=== PATIENT | female | born 1950 | race Caucasian/White ===

== ENCOUNTER → 2019-04-26 10:12 | Outpatient (BNVA) | payer MEDICARE, MEDICAID, SELFPAY | PROVIDERS: Family Provider Internal Medicine; PCP Internal Medicine; Visit Provider Anesthesiology | DX: G89.29 Other chronic pain (principal); M51.26 Other intervertebral disc displacement, lumbar region; M51.36 Other intervertebral disc degeneration, lumbar region; M54.16 Radiculopathy, lumbar region; M47.9 Spondylosis, unspecified; M54.2 Cervicalgia; M19.91 Primary osteoarthritis, unspecified site; F17.210 Nicotine dependence, cigarettes, uncomplicated; Z79.891 Long term (current) use of opiate analgesic | CPT/HCPCS: 99214 ==

== ENCOUNTER → 2019-05-14 13:35 | Outpatient (BNVA) | payer MEDICARE, MEDICAID, SELFPAY | PROVIDERS: Family Provider Internal Medicine; PCP Internal Medicine; Referring Provider Nurse Practitioner Family; Visit Provider Otolaryngology | DX: H60.393 Other infective otitis externa, bilateral (principal); H92.03 Otalgia, bilateral; F17.210 Nicotine dependence, cigarettes, uncomplicated | CPT/HCPCS: 99213; 99214 ==

== ENCOUNTER 2019-05-22 11:36 | Outpatient (CLI) | payer MEDICARE, MEDICAID, SELFPAY ==
--- NOTE | 2019-05-22 11:45 | MR_ITS ---
WS: [id number] MRI HEAD WITH CONTRAST TECHNIQUE: Sagittal T1, T2 axial, T2 axial FLAIR, axial susceptibility weighted imaging, axial diffus ion weighted images, and coronal T2 images were obtained. Pre and post-T1 axial and post T1 coronal i mages. ADC and FSPGR images. CLINICAL INFORMATION: CAD;SPEECH DISTURBANCE;TREMOR;AAA;HYPERTYROIDISM;DIABETES ME COMPARISON: None. FINDINGS: No evidence of restricted diffusion to suggest acute ischemia. Mild small vessel changes. Mild parenc hymal volume loss. Normal posterior fossa. Normal vascular flow voids at the skull base. No extra-axi al fluid collections. No evidence of mass or mass effect. Paranasal sinuses are well aerated. Mild mu cosal thickening in the mastoid air cells. Mild symmetric atrophy involving the temporal lobes and hi ppocampal formations. No hemosiderin on the susceptibility weighted images. Incidental venous angioma left lang radiata. Normal visualized dural venous sinuses. Normal optic chiasm and pituitary infundibulum. Normal sella. Normal cavernous sinuses. MR/MR head wo/w con [id number] IMPRESSION: 1. No evidence of restricted diffusion to suggest acute ischemia. 2. Mild small vessel changes moderate parenchymal volume loss. 3. No hemosiderin on the susceptibility weighted images. 4. Incidental venous angioma left lang radiata. 5. Otherwise no abnormal intracranial enhancement.
[2019-05-22 12:54] LABS: Blood Urea Nitrogen 13 mg/dL (8-23)
== END 2019-05-22 11:37 | disposition home or self-care (01) ==
LOC: RADSHAW 11:41
PROVIDERS: Family Provider Internal Medicine; PCP Nurse Practitioner Family; Visit Provider Nurse Practitioner Family
DX: R47.9 Unspecified speech disturbances (principal); I25.10 Atherosclerotic heart disease of native coronary artery without angina pectoris; I71.4 Abdominal aortic aneurysm, without rupture; E05.90 Thyrotoxicosis, unspecified without thyrotoxic crisis or storm; E11.9 Type 2 diabetes mellitus without complications; Q28.3 Other malformations of cerebral vessels
CPT/HCPCS: 70553; 82565; 84520; A9579

== ENCOUNTER → 2019-05-29 14:32 | Outpatient (BNVA) | payer MEDICARE, MEDICAID, SELFPAY | PROVIDERS: Family Provider Internal Medicine; PCP Nurse Practitioner Family; Visit Provider Otolaryngology | DX: H92.03 Otalgia, bilateral (principal); R25.1 Tremor, unspecified; J38.3 Other diseases of vocal cords; F17.210 Nicotine dependence, cigarettes, uncomplicated | CPT/HCPCS: 99213; 99214 ==

== ENCOUNTER → 2019-05-30 09:21 | Outpatient (BNVA) | payer MEDICARE, MEDICAID, SELFPAY | PROVIDERS: Family Provider Internal Medicine; PCP Nurse Practitioner Family; Referring Provider Internal Medicine; Visit Provider Specialist | DX: R25.1 Tremor, unspecified (principal); G96.9 Disorder of central nervous system, unspecified; G31.84 Mild cognitive impairment of uncertain or unknown etiology; G43.711 Chronic migraine without aura, intractable, with status migrainosus | CPT/HCPCS: 99204; 99214 ==

== ENCOUNTER → 2019-06-21 10:19 | Outpatient (BNVA) | payer MEDICARE, MEDICAID, SELFPAY | PROVIDERS: Family Provider Internal Medicine; PCP Nurse Practitioner Family; Visit Provider Nurse Practitioner | DX: M54.5 Low back pain (principal); M25.561 Pain in right knee; M25.562 Pain in left knee; M54.2 Cervicalgia; F17.210 Nicotine dependence, cigarettes, uncomplicated; Z79.891 Long term (current) use of opiate analgesic | CPT/HCPCS: 99214 ==

== ENCOUNTER → 2019-07-23 11:12 | Outpatient (BNVA) | payer MEDICARE, MEDICAID, SELFPAY | PROVIDERS: Family Provider Internal Medicine; PCP Nurse Practitioner Family; Visit Provider Specialist | DX: G25.0 Essential tremor (principal); G43.019 Migraine without aura, intractable, without status migrainosus; F17.210 Nicotine dependence, cigarettes, uncomplicated | CPT/HCPCS: 99213 ==

== ENCOUNTER → 2019-10-01 10:20 | Outpatient (BNVA) | payer MEDICARE, MEDICAID, SELFPAY | PROVIDERS: Family Provider Internal Medicine; PCP Nurse Practitioner Family; Visit Provider Nurse Practitioner | DX: M54.42 Lumbago with sciatica, left side (principal); F17.210 Nicotine dependence, cigarettes, uncomplicated; Z79.891 Long term (current) use of opiate analgesic | CPT/HCPCS: 99213 ==

== ENCOUNTER 2019-10-16 14:02 | Outpatient (CLI) | payer MEDICARE, MEDICAID, SELFPAY ==
--- NOTE | 2019-10-16 14:24 | XR_ITS ---
WS: [id number] SCREENING DEXA SCAN [employer] CLINICAL INFORMATION: POST MENOPAUSAL STATUS COMPARISON: None. FINDINGS: The L1-L4 bone mineral density measures 1.283 g/cm2. This corresponds to a T score score of 0.9 and Z score of 1.3. Left femoral neck bone mineral density measures 0.972 g/cm2. This corresponds to a T score of -0.3 an d Z score of 0.2. Right femoral neck bone mineral density measures 0.876 g/cm2. This corresponds to a T score -1.0of an d Z score of -0.6. Mean femoral neck bone mineral density measures 0.924 g/cm2. This corresponds to a T score of -0.7 an d Z score of -0.2. XR/XR DEXA axial skeleton* [id number] IMPRESSION: Normal bone mineralization. Patient's FRAX calculated 10 year probability for major osteoporotic fracture i s 17.7 % and osteoporotic hip fracture is 4.6%.
--- NOTE | 2019-10-16 15:00 | MM_ITS ---
WS: [id number] BILATERAL SCREENING DIGITAL MAMMOGRAM WITH CAD HISTORY: SCREENING COMPARISON: 06/19/2018, 06/07/2018, 05/30/2017 and 05/27/2016 Bilateral CC and MLO views submitted. Computer aided detection analyzed. Breast composition: There are scattered areas of fibroglandular density. No suspicious masses, microc alcifications or architectural distortion. Well-rounded nodules with peripheral calcification in the LEFT breast are stable. No suspicious masses. MM/[place] [id number] IMPRESSION: BI-RADS: 2-Benign FOLLOW UP: 1 Year Follow-up
== END 2019-10-16 14:03 | disposition home or self-care (01) ==
LOC: RADWPI 14:12
PROVIDERS: Family Provider Nurse Practitioner Family; PCP Nurse Practitioner Family; Visit Provider Nurse Practitioner Family
DX: Z12.31 Encounter for screening mammogram for malignant neoplasm of breast (principal); Z78.0 Asymptomatic menopausal state
CPT/HCPCS: 77067; 77080

== ENCOUNTER → 2019-11-27 10:17 | Outpatient (BNVA) | payer MEDICARE, MEDICAID, SELFPAY | PROVIDERS: Family Provider Nurse Practitioner Family; PCP Nurse Practitioner Family; Visit Provider Nurse Practitioner | DX: Z02.89 Encounter for other administrative examinations (principal); M51.36 Other intervertebral disc degeneration, lumbar region; M54.16 Radiculopathy, lumbar region; F17.210 Nicotine dependence, cigarettes, uncomplicated; Z79.899 Other long term (current) drug therapy | CPT/HCPCS: 99214 ==

== ENCOUNTER 2019-12-03 06:50 | Outpatient (CLI) | payer MEDICARE, MEDICAID, SELFPAY ==
--- NOTE | 2019-12-03 07:06 | ECG_ITS ---
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 The electrocardiogram showed normal sinus rhythm, normal axis with non specific T wave abnormality. The Lexiscan was infused over a period of 20 seconds. A total of 0.4 milligrams of Lexiscan was infused. The stress phase was continued for a total of 5 minutes. Heart rate at the end of the stress phase was 79 bpm with a blood pressure of 126/80 mmHg. The EKG at the peak infusion revealed no significant ST-T wave changes. Study was terminated due to protocol completion. Sestamibi was injected 20 seconds after the Lexiscan infusion. Blood pressure at the end of the recovery phase was 129/78 mmHg with a heart rate of 77 beats per minute. CONCLUSION: 1. No significant EKG changes with the] LexiScan infusion. 2. No LexiScan induced chest pain or cardiac arrhythmia. 3. Normal blood pressure and heart rate response. 4. Sestamibi/sestamibi perfusion scan pending; see separate report. Electronically Signed On 12-05-2019 20:55:15 CDT by Kay Anand M.D. [email or web address]
--- NOTE | 2019-12-03 07:06 | NMCV_ITS ---
NM crispin perf SPECT r/s* [id number] Falguni Bond Age: 69 Gender: F : 1950 Exam Date: 12/03/2019 08:41 Ordering Phys: Kay Anand MD ([email or web address]) Technologist: MINO Juárez Exam Location: [facility] Indications: CHEST PAIN STRESS TEST Please see separate stress test report in [facility] for full findings IMAGE PROTOCOL Rest/Stress 1 Lexiscan Day Radiopharmaceutical Dose (mCi) Administration Site Administered by Rest: Tc-99m 10.6 IV MINO Juárez Sestamibi Stress:Tc-99m 32.6 IV Holly Guardado, MINO Sestamibi Rest: 03-Dec-2019 60 Discovery 630 Stress: 03-Dec-2019 30 Discovery 630 0.4mg Lexiscan. Images obtained in supine and prone position. SPECT RESULTS Technical Quality: Excellent Raw Data Analysis: Normal Image Corrections: No attenuation or motion correction applied Summed Stress Score: 12 Summed Rest Score: 15 Summed Difference Score: 2 PERFUSION FINDINGS Medium sized perfusion abnormality of moderate severity of entire inferior, mid to apical anterior, apical septal and apical patricia on rest images with improved tracer uptake on stress images. FUNCTIONAL RESULTS (calculated via Gated SPECT) Stress Image LV EF (%): 48 Stress EDV (mL):182 TID: 0.98 Stress ESV (mL):95 FUNCTIONAL FINDINGS: The left ventricle is normal in size. Transient Ischemia Dilatation of 0.98. There is mildly reduced left ventricular global systolic function. The left ventricular ejection fraction is mildly reduced with a value of 48%. There is mildly decreased wall thickening. Increased end diastolic and end systolic volumes. IMPRESSIONS 1. Medium sized perfusion abnormality of moderate severity of entire inferior, mid to apical anterior, apical septal and apical patricia on rest images with improved tracer uptake on stress images. 2. This is likely suggestive of attenuation artifact. 3. The left ventricular ejection fraction is mildly reduced with a value of 48%. 4. No significant coronary ischemia based on this study. Kay Anand MD (Electronically Signed) Final Date: 05 December 2019 21:42 S
[2019-12-03 07:58] VITALS: BMI 37.9
[2019-12-03] MEDS: regadenoson 0.4 Mg/5 ml Syringe IVP (09:24)
[2019-12-03 09:53] VITALS: BP 129/78; PULSE 78
== END 2019-12-03 06:51 | disposition home or self-care (01) ==
LOC: CDL 06:51
PROVIDERS: PCP Nurse Practitioner Family; Visit Provider Internal Medicine Cardiovascular Disease
DX: R07.9 Chest pain, unspecified (principal); I42.9 Cardiomyopathy, unspecified; I25.10 Atherosclerotic heart disease of native coronary artery without angina pectoris
CPT/HCPCS: 78452; 93017; A9500; J2785

== ENCOUNTER 2019-12-13 12:35 | Outpatient (CLI) | payer MEDICARE, MEDICAID, SELFPAY ==
--- NOTE | 2019-12-13 12:41 | USCV_ITS ---
Falguni Bond Age: 69 Gender: F : 1950 Exam Date: 12/13/2019 12:47 Ordering Phys: Jen Florian Technologist: Sary Morales [place]am [place] [facility] [place]: bilateral lower leg pain HISTORY: Lower extremity pain. PROCEDURES: Bilaterally, the common femoral, superficial femoral, profunda femoral, popliteal, posterior tibial, greater saphenous veins, and the peroneal trunk were identified and interrogated in the standard fashion. These veins were found to be easily compressible with spontaneous blood flow. FINDINGS: Normal 2-D Doppler and augmentation and compressibility throughout the lower extremity venous structures. Additional imaging through the proximal calf veins also reveals no thrombus. Limited evaluation of the greater saphenous vein is patent with no thrombus. CONCLUSIONS No DVT bilateral lower extremities. Dr. Zayda Mina DO (Electronically Signed) Final Date: 13 December 2019 16:20 S
== END 2019-12-13 12:36 | disposition home or self-care (01) ==
LOC: US 12:35
PROVIDERS: PCP Nurse Practitioner Family; Visit Provider Nurse Practitioner Family
DX: M79.662 Pain in left lower leg (principal); M79.661 Pain in right lower leg
CPT/HCPCS: 93970

== ENCOUNTER → 2020-01-29 09:34 | Outpatient (BNVA) | payer MEDICARE, MEDICAID, SELFPAY | PROVIDERS: PCP Nurse Practitioner Family; Visit Provider Anesthesiology | DX: M51.36 Other intervertebral disc degeneration, lumbar region (principal); M51.26 Other intervertebral disc displacement, lumbar region; M54.16 Radiculopathy, lumbar region; M47.9 Spondylosis, unspecified; M54.2 Cervicalgia; F17.210 Nicotine dependence, cigarettes, uncomplicated; Z79.899 Other long term (current) drug therapy | CPT/HCPCS: 99213; 99214 ==

== ENCOUNTER 2020-01-30 09:57 | Outpatient (CLI) | payer MEDICARE, MEDICAID, SELFPAY ==
--- NOTE | 2020-01-30 10:15 | USCV_ITS ---
Falguni Bond Age: 69 Gender: F : 1950 Exam Date: 01/30/2020 10:38 Ordering Phys: Kay Anand MD ([email or web address]) Technologist: Timothy Mayo [place] [facility] [place] AAA HISTORY: Diameter (cm) AP x Transverse x Length Velocity (cm/s) Waveform Prox Aorta: 2.24 x 2.26 x 47.40 Triphasic Mid Aorta: 2.24 x 2.39 x 52.90 Biphasic Distal Aorta: 4.11 x 4.18 x 57.60 Biphasic Right Iliac Prox: 1.57 x 1.64 x 106.40 Biphasic Left Iliac Prox: 1.88 x 1.66 x 124.80 Biphasic Stent Prox Landing x x Aneurysmal Sac Max x x Lt Lat Sac Dim Rt Lat Sac Dim Stent Dist Landing x x Right Iliac Stent x x Left Iliac Stent x x Right Renal Art Left Renal Art FINDINGS: Fusiform dilatation of the infrarenal aorta measuring 4.1 x 4.2 cm in diameter. Moderate diffuse heterogeneous plaques in the abdominal aorta Dilated proximal common iliac arteries CONCLUSIONS 1. Fusiform aneurysm of the infrarenal aorta measuring 4.1 x 4.2 cm. 2. Moderate diffuse plaques in the abdominal aorta. 3. Ectatic proximal common iliac arteries bilaterally measuring 1.6 x 1.6 on the right side and 1.9 x 1.7 on the left side Compared to the study from 02/15/2017, there is increase in the size of the aortic aneurysm and the proximal common iliac arteries Dr Hanna Ryan MD [facility] (Electronically Signed) Final Date: 31 January 2020 09:16 S
== END 2020-01-30 09:58 | disposition home or self-care (01) ==
LOC: US 09:57
PROVIDERS: PCP Nurse Practitioner Family; Visit Provider Internal Medicine Cardiovascular Disease
DX: I71.4 Abdominal aortic aneurysm, without rupture (principal)
CPT/HCPCS: 76706

== ENCOUNTER → 2020-03-31 08:53 | Outpatient (BNVA) | payer MEDICARE, MEDICAID, SELFPAY | PROVIDERS: PCP Nurse Practitioner Family; Visit Provider Nurse Practitioner | DX: Z02.89 Encounter for other administrative examinations (principal); M51.36 Other intervertebral disc degeneration, lumbar region; M51.26 Other intervertebral disc displacement, lumbar region; M54.16 Radiculopathy, lumbar region; M54.2 Cervicalgia; F17.210 Nicotine dependence, cigarettes, uncomplicated; Z79.891 Long term (current) use of opiate analgesic; Z71.6 Tobacco abuse counseling | CPT/HCPCS: 99213; 99214 ==

== ENCOUNTER → 2020-05-29 08:56 | Outpatient (BNVA) | payer MEDICARE, MEDICAID, SELFPAY | PROVIDERS: PCP Nurse Practitioner Family; Visit Provider Nurse Practitioner | DX: G89.29 Other chronic pain (principal); M51.36 Other intervertebral disc degeneration, lumbar region; M51.26 Other intervertebral disc displacement, lumbar region; M19.91 Primary osteoarthritis, unspecified site; M47.9 Spondylosis, unspecified; M54.2 Cervicalgia; F17.210 Nicotine dependence, cigarettes, uncomplicated; Z79.891 Long term (current) use of opiate analgesic; Z71.6 Tobacco abuse counseling | CPT/HCPCS: 99213; 99214 ==

== ENCOUNTER → 2020-07-28 09:10 | Outpatient (BNVA) | payer MEDICARE, MEDICAID, SELFPAY | PROVIDERS: PCP Nurse Practitioner Family; Visit Provider Anesthesiology | DX: G89.29 Other chronic pain (principal); M54.2 Cervicalgia; M54.16 Radiculopathy, lumbar region; M51.26 Other intervertebral disc displacement, lumbar region; M51.36 Other intervertebral disc degeneration, lumbar region; M47.9 Spondylosis, unspecified; M19.91 Primary osteoarthritis, unspecified site; F17.210 Nicotine dependence, cigarettes, uncomplicated; Z79.891 Long term (current) use of opiate analgesic | CPT/HCPCS: 99214 ==

== ENCOUNTER 2020-08-24 07:13 | Outpatient (CLI) | payer MEDICARE, MEDICAID, SELFPAY ==
--- NOTE | 2020-08-24 07:21 | USCV_ITS ---
Bond Falguni Age: 70 Gender: F : 1950 Exam Date: 08/24/2020 07:36 Ordering Phys: Kay Anand MD ([email or web address]) Technologist: Exam Location: [facility] – [place] Indication: AAA HISTORY: Diameter (cm) AP x Transverse x Length Velocity (cm/s) Waveform Prox Aorta: 2.39 x 2.60 x 70.00 Biphasic Mid Aorta: 3.67 x 4.07 x 55.30 Biphasic Distal Aorta: 2.93 x 3.13 x 66.60 Biphasic Right Iliac Prox: 1.10 x 1.33 x 85.10 Biphasic Left Iliac Prox: 1.19 x 1.35 x 109.90 Biphasic Stent Prox Landing x x Aneurysmal Sac Max x x Lt Lat Sac Dim Rt Lat Sac Dim Stent Dist Landing x x Right Iliac Stent x x Left Iliac Stent x x Right Renal Art Left Renal Art FINDINGS: CONCLUSIONS Aneurysmal abdominal aorta measuring 3.6 x 4.1cm in the mid to distal aorta appears stable since 01/2020 Normal iliac arteries Abdoulaye Acosta MD (Electronically Signed) Final Date: 24 Aug 2020 13:06 S
== END 2020-08-24 07:14 | disposition home or self-care (01) ==
LOC: RAD 07:14
PROVIDERS: PCP Nurse Practitioner Family; Visit Provider Internal Medicine Cardiovascular Disease
DX: I71.4 Abdominal aortic aneurysm, without rupture (principal)
CPT/HCPCS: 93978

== ENCOUNTER 2020-08-30 12:22 | Emergency (ER) | payer MEDICARE, MEDICAID, SELFPAY ==
[2020-08-30 12:22] VITALS: BP 128/78; PULSE 83; RESP 18; TEMP 36.6; O2SAT 96; BMI 38.0
--- NOTE | 2020-08-30 12:41 | XRR_ITS ---
PROCEDURE INFORMATION: Exam: XR Left Knee Exam date and time: 08/30/2020 12:48 PM Age: 70 years old Clinical indication: Injury or trauma; Fall; Blunt trauma; Knee; Left TECHNIQUE: Imaging protocol: XR Left knee. Views: 3 views. COMPARISON: No relevant prior studies available. FINDINGS: Bones/joints: Negative for acute bony abnormality. Narrowing of the medial and patellofemoral compartment is seen consistent with osteoarthritis. Soft tissues: Soft tissue edema is seen in the medial aspect of the knee. XR/XR knee LT 3V* [id number] IMPRESSION: 1. No acute findings. 2. Mild osteoarthritis. 3. Soft tissue edema medial knee
--- NOTE | 2020-08-30 12:41 | W.ED.FALL ---
HPI - Fall General: Chief Complaint: Fall Stated Complaint: fall, knee pain Time Seen by Provider: 08/30/20 12:32 History of Present Illness: HPI Narrative: 70-year-old female comes in today with complaints of injury to the left knee. Patient has significant anterior swelling to the knee with ecchymosis. Patient does take routinely Plavix and aspirin. Patient has a history of migraines, intervertebral disc disease, arthritis, and abdominal aortic aneurysm complaint: fall Onset (ago): hour(s) Fall from: standing Fall witnessed: no Place fall occurred: home Loss of consciousness: None Prolonged down time: no Context: tripped/slipped Location of injury - extremities: Left: knee Severity: moderate Quality: dull Review of Systems General: Reports: 10 or more systems reviewed and unremarkable except in HPI and below Musc: Reports: other (Left knee injury) PFSH ED PFSH: Medical History Abdominal aortic aneurysm DDD (degenerative disc disease), lumbar Displacement of intervertebral disc of lumbar region Encounter for long-term opiate analgesic use Long-term use of high-risk medication Lumbar radiculitis Lumbar spine pain Neck pain Pain management contract signed Primary osteoarthritis Spastic dysphonia Spondylosis Tobacco use Tremor Surgical History S/P appendectomy S/P cholecystectomy S/P hysterectomy Status post coronary artery stent placement Family History Brother CAD (coronary artery disease) Hypertension Grandmother Diabetes Other Hyperlipidemia Denies family history of Cancer Stroke Social History Smoking and tobacco status: current every day smoker cigarettes [ Other cigarette details: 04/25 PPD ] Quit status (tobacco): not considering quitting Alcohol intake: never Adopted: No Caregiver/support person: No Lives independently: Yes Household members: spouse History of recent travel: No Physical Exam Const: COMMON NORMALS: no acute distress and patient oriented x3 GENERAL APPEARANCE: cooperative HENMT: COMMON NORMALS: normocephalic and Normal external nose present HEAD & SCALP: normal to inspection and normocephalic NOSE: Normal external nose present Eye: GENERAL EYE: appearance normal, both eyes and all related structures Neck/C-Spine: COMMON NORMALS: full ROM Chest: COMMONS NORMALS: normal inspection of the chest Resp: COMMON NORMALS: normal respiratory effort EFFORT & INSPECTION: Yes able to speak in complete sentences Cardio: COMMON NORMALS: regular rate and regular rhythm RATE: regular rate RHYTHM: regular rhythm GI: COMMON NORMALS: non-tender Back/Pelvis: COMMON NORMALS: thoracic and lumbar spine normal to inspection Extremity: NARRATIVE EXTREMITY EXAM: Swelling and ecchymosis to the anterior left knee. Patient is able to bend the knee but is restricted due to swelling, patient is able to lift leg off the table without difficulty. Neuro: COMMON NORMALS: patient oriented x3 and moves all extremities Psych: COMMON NORMALS: mental status grossly normal and cooperative Skin: COMMON NORMALS: no rashes or lesions noted GENERAL SKIN EXAM: no rashes or lesions noted Course Vital Signs: Vital signs: Vital Signs Temperature 97.8 F 08/30/20 12:22 Pulse Rate 83 08/30/20 12:22 Respiratory Rate 18 08/30/20 12:22 Blood Pressure 128/78 08/30/20 12:22 Pulse Oximetry 95 08/30/20 12:51 MDM - Fall MDM Narrative: Medical decision making narrative: 70-year-old female comes in for evaluation of the left knee injury. Patient tripped and fell this morning hitting her left knee. On exam patient has significant swelling and ecchymosis to the anterior left knee. Distal pulses are intact. Differential diagnosis includes fracture, contusion, sprain. X-ray notes no acute fractures. Reviewed exam with patient with recommendations for treatment and follow-up. Patient reported understanding agreed to plan. Discharge Plan Discharge Patient Disposition: Home Clinical Impression: Contusion of knee, left Qualifiers: Encounter type: initial encounter Qualified Code(s): S80.02XA - Contusion of left knee, initial encounter Condition: Stable Prescriptions: No Action nitroglycerin [Nitrostat] 0.4 mg tablet, sublingual 0.4 mg SUBLINGUAL Q5M PRN (Reason: Chest Pain) RF: 0 aspirin 81 mg tablet,delayed release (DR/EC) 81 mg PO QAM RF: 0 methimazole 5 mg tablet 5 mg PO QAM RF: 0 calcium carbonate-vitamin D3 500 mg(1,250mg) -125 unit tablet 1 tab PO QAM RF: 0 Healthy Eyes SuperVision [phone] toax-fq-qwrp capsule 1 cap PO DAILY RF: 0 metformin 1,000 mg tablet 1,000 mg PO BID RF: 0 buspirone 10 mg tablet 10 mg PO BID RF: 0 isosorbide mononitrate 30 mg tablet extended release 24 hr 30 mg PO QAM RF: 0 metoprolol succinate 25 mg tablet extended release 24 hr 25 mg PO QAM RF: 0 tizanidine 4 mg tablet 4 mg PO TID PRN (Reason: muscle spasticity) 30 Days Qty: 90 RF: 5 hydrocodone-acetaminophen 10-325 mg tablet 1 tab PO .5 TIMES DAILY PRN (Reason: pain) 30 Days Qty: 150 RF: 0 furosemide 40 mg tablet 40 mg PO QAM Qty: 90 RF: 3 atorvastatin 80 mg tablet 80 mg PO BEDTIME RF: 0 clopidogrel 75 mg tablet 75 mg PO QAM RF: 0 lisinopril 5 mg tablet 5 mg PO BEDTIME RF: 0 Discharge Orders: Discharge ED (Routine); Ordered 08/30/20 Ordered By: Tirso Victor Referrals: Jen Florian FNP [Primary Care Provider] - Discharge Diet: Usual diet Discharge Activity: Increase activity as tolerated Patient Instructions: Knee Pain (ED), Opioid Safety Activity Restrictions/Additional Instructions: Activity as tolerated. Use ice packs on and off to the knee at 10-minute intervals for knee pain and swelling. Use elastic bandage to the knee to help with swelling. Activity as tolerated. Continue with routine medications as directed. Follow-up with primary care for further instruction. Return to the ER for new concerns. Coding Level of Care Code ED Pyrometer Temperature Regulator for Nasir Fwd Exam Comprehensive
[2020-08-30 12:51] VITALS: O2SAT 95
[2020-08-30] MEDS: HYDROcodone-acetaminophen 10-325 mg Tablet 1 TAB PO (12:58)
--- NOTE | 2020-08-30 13:07 | PC.NURSE ---
portable xray at bedside
[2020-08-30 14:20] VITALS: BP 119/69; PULSE 61; RESP 16; O2SAT 93
== END 2020-08-30 14:21 | disposition home or self-care (01) ==
PROVIDERS: Emergency Provider Nurse Practitioner Family; PCP Nurse Practitioner Family
DX: S80.02XA Contusion of left knee, initial encounter (principal); Z79.82 Long term (current) use of aspirin; Z79.02 Long term (current) use of antithrombotics/antiplatelets; F17.210 Nicotine dependence, cigarettes, uncomplicated; W19.XXXA Unspecified fall, initial encounter
CPT/HCPCS: 73562; 99283

== ENCOUNTER → 2020-09-16 11:22 | Outpatient (BNVA) | payer MEDICARE, MEDICAID, SELFPAY | PROVIDERS: PCP Nurse Practitioner Family; Visit Provider Specialist | DX: M17.12 Unilateral primary osteoarthritis, left knee (principal); M25.562 Pain in left knee; Z46.89 Encounter for fitting and adjustment of other specified devices; M25.569 Pain in unspecified knee | CPT/HCPCS: 73560; 73565; 97760; L1832 ==

== ENCOUNTER 2020-09-16 14:48 | Outpatient (CLI) | payer MEDICARE, MEDICAID, SELFPAY | END 2020-09-16 14:49 | disposition home or self-care (01) | LOC: SPT 14:49 | PROVIDERS: PCP Nurse Practitioner Family; Visit Provider Specialist | DX: Z46.89 Encounter for fitting and adjustment of other specified devices (principal); M25.569 Pain in unspecified knee | CPT/HCPCS: 97760; L1832 ==

== ENCOUNTER → 2020-10-02 08:47 | Outpatient (BNVA) | payer MEDICARE, MEDICAID, SELFPAY | PROVIDERS: Visit Provider Nurse Practitioner | DX: M51.36 Other intervertebral disc degeneration, lumbar region (principal); M54.16 Radiculopathy, lumbar region; M17.12 Unilateral primary osteoarthritis, left knee; M54.2 Cervicalgia; M47.9 Spondylosis, unspecified; F17.210 Nicotine dependence, cigarettes, uncomplicated; Z71.6 Tobacco abuse counseling; Z79.891 Long term (current) use of opiate analgesic | CPT/HCPCS: 99213; 99214 ==

== ENCOUNTER → 2020-12-04 10:33 | Outpatient (BNVA) | payer MEDICARE, MEDICAID, SELFPAY | PROVIDERS: Visit Provider Nurse Practitioner | DX: M51.36 Other intervertebral disc degeneration, lumbar region (principal); M51.26 Other intervertebral disc displacement, lumbar region; M17.12 Unilateral primary osteoarthritis, left knee; M54.2 Cervicalgia; G43.711 Chronic migraine without aura, intractable, with status migrainosus; H60.393 Other infective otitis externa, bilateral; M47.9 Spondylosis, unspecified; F17.210 Nicotine dependence, cigarettes, uncomplicated; Z79.891 Long term (current) use of opiate analgesic; Z71.6 Tobacco abuse counseling | CPT/HCPCS: 99214 ==

== ENCOUNTER 2021-01-26 10:10 | Outpatient (CLI) | payer MEDICARE, MEDICAID, SELFPAY ==
--- NOTE | 2021-01-26 10:13 | MM_ITS ---
WS: [id number] Bilateral screening digital mammogram, 01/26/2021 Clinical Data: SCREENING Comparison: 10/16/2019, 06/19/2018, 2018, 05/30/2017, 05/27/2016, 02/27/2014, 03/01/2013, 05/06/2008, 2011, 07/14/2011, 02/27/2011, 01/13/2011, 01/05/2010, 01/18/2008, 12/12/2006., Findings: The breast parenchymal pattern shows fat replacement. No spiculated masses or clustered calcification s are seen. There are no secondary signs of carcinoma. MM/[place] [id number] Impression: 1. Negative bilateral mammogram unchanged. 2. Recommend annual screening mammograms. BIRADS: 1-Negative FOLLOW UP: 1 Year Follow-up The CAD radio program checker was used.
== END 2021-01-26 10:11 | disposition home or self-care (01) ==
LOC: RADSHAW 10:12
PROVIDERS: PCP Nurse Practitioner Family; Visit Provider Nurse Practitioner Family
DX: Z12.31 Encounter for screening mammogram for malignant neoplasm of breast (principal)
CPT/HCPCS: 77067

== ENCOUNTER → 2021-01-28 10:10 | Outpatient (BNVA) | payer MEDICARE, MEDICAID, SELFPAY | PROVIDERS: PCP Nurse Practitioner Family; Visit Provider Anesthesiology | DX: M54.2 Cervicalgia (principal); M54.16 Radiculopathy, lumbar region; M51.26 Other intervertebral disc displacement, lumbar region; M47.9 Spondylosis, unspecified; F17.210 Nicotine dependence, cigarettes, uncomplicated; Z79.891 Long term (current) use of opiate analgesic | CPT/HCPCS: 99214 ==

== ENCOUNTER → 2021-03-26 08:27 | Outpatient (BNVA) | payer MEDICARE, MEDICAID, SELFPAY | PROVIDERS: PCP Nurse Practitioner Family; Visit Provider Anesthesiology | DX: G89.29 Other chronic pain (principal); M54.16 Radiculopathy, lumbar region; M51.26 Other intervertebral disc displacement, lumbar region; M54.2 Cervicalgia; M47.9 Spondylosis, unspecified; M51.36 Other intervertebral disc degeneration, lumbar region; Z79.899 Other long term (current) drug therapy; Z79.891 Long term (current) use of opiate analgesic; Z71.6 Tobacco abuse counseling; F17.200 Nicotine dependence, unspecified, uncomplicated | CPT/HCPCS: 99214 ==

== ENCOUNTER → 2021-06-01 08:41 | Outpatient (BNVA) | payer MEDICARE, MEDICAID, SELFPAY | PROVIDERS: PCP Nurse Practitioner Family; Visit Provider Anesthesiology | DX: G89.29 Other chronic pain (principal); M54.2 Cervicalgia; M54.50 Low back pain, unspecified; F17.210 Nicotine dependence, cigarettes, uncomplicated; Z79.891 Long term (current) use of opiate analgesic | CPT/HCPCS: 99214 ==

== ENCOUNTER 2021-09-28 13:08 | Outpatient (CLI) | payer MEDICARE, MEDICAID, SELFPAY ==
--- NOTE | 2021-09-28 14:08 | USCV_ITS ---
Falguni Bond Age: 71 Gender: F : 1950 Exam Date: 09/28/2021 14:20 Ordering Phys: Kay Anand MD ([email or web address]) Technologist: Campos Schuster Exam Location: [facility] [place] Indication: AAA HISTORY: Diameter (cm) AP x Transverse x Length Velocity (cm/s) Waveform Prox Aorta: 2.17 x 2.66 x 114.80 Mid Aorta: 3.75 x 4.56 x 44.70 Distal Aorta: 3.33 x 3.38 x 44.20 Right Iliac Prox: 1.09 x 1.09 x 114.80 Left Iliac Prox: 1.03 x 1.09 x 107.70 Stent Prox Landing x x Aneurysmal Sac Max x x Lt Lat Sac Dim Rt Lat Sac Dim Stent Dist Landing x x Right Iliac Stent x x Left Iliac Stent x x Right Renal Art Left Renal Art FINDINGS: Comparison:. 08/24/20. A fusiform abdominal aortic aneurysm is noted with a maximal diameter of 4.6 cm. Aneurysm has increased in size since the prior exam. There is evidence of atherosclerotic plaque no significan stenosis in the right common iliac artery. There is evidence of atherosclerotic plaque no significan stenosis in the left common iliac artery. CONCLUSIONS Enlarging AAA, now measures 4.[address] Zayda Mina DO (Electronically Signed) Final Date: 28 September 2021 15:17 S
== END 2021-09-28 13:09 | disposition home or self-care (01) ==
LOC: RAD 13:16
PROVIDERS: PCP Nurse Practitioner Family; Visit Provider Internal Medicine Cardiovascular Disease
DX: I71.4 Abdominal aortic aneurysm, without rupture (principal)
CPT/HCPCS: 93978

== ENCOUNTER 2022-01-05 11:46 | Outpatient (CLI) | payer MEDICARE, MEDICAID, SELFPAY ==
--- NOTE | 2022-01-05 12:00 | CT_ITS ---
WS: [id number] CTA ABDOMINAL AORTA WITH RUNOFF TECHNIQUE: Contrast enhanced CTA of the abdominal aorta with bilateral lower extremity runoff. Multip lanar reformatted images were obtained. MIP reformats were also reviewed. CLINICAL INFORMATION: Recheck aneurysm COMPARISON: 2017 DLP: 951.[address] scans at [facility] use at least one of these dose optimization techniques: automated e xposure control; mA and/or kV adjustment per patient size (includes targeted exams where dose is matc hed to clinical indication); or iterative reconstruction. FINDINGS: Infrarenal abdominal aortic aneurysm with peripheral mural thrombus. Aneurysm measures appr oximately 4.2 x 3.9 cm AP by transverse this is increased in size since 2018 where it measured approx imately 3.7 x 3.8 cm by my measurements. Moderate calcified atheromatous disease. Celiac and SMA are patent at the origins. Mild calcification at the origins. LEFT gastric arises from the aorta. Proxima l renal arteries are patent without significant stenosis. Normal renal parenchymal enhancement. KISHA is patent. Portal vein and splenic vein are patent. Normal pancreas. Normal spleen. Normal GE junction. LEFT adrenal adenoma. RIGHT adrenal gland is normal. Nor mal renal parenchymal enhancement. No hydronephrosis. Sigmoid diverticulosis. No evidence of acute diverticulitis. RIGHT ventral abdominal wall hernia repa ir. RIGHT: RIGHT common iliac artery is patent with moderate calcified atheromatous disease. Densely calc ified internal iliac is patent. External iliac is patent. Common femoral artery is patent. Superficia l femoral and deep femoral arteries are patent. Superficial femoral artery is patent to the adductor hiatus. Popliteal artery is patent to the trifurcation. Dominant two-vessel runoff to the ankle. No s ignificant flow in the posterior tibial artery. LEFT: LEFT common iliac artery is patent. Internal iliac artery is patent with moderate calcification . External iliac artery is patent. Common femoral artery is patent. Superficial femoral and deep femo ral arteries are patent. Superficial femoral artery is patent to the popliteal artery. Popliteal kevon ry is patent to the trifurcation. 3 vessel runoff to the ankle. Somewhat diminutive peroneal artery. CT/CT angio abd aorta runof [id number] IMPRESSION: 1. No flow-limiting stenosis in the proximal RIGHT lower extremity. Two-vessel runoff to the ankle with occluded posterior tibial artery. 2. No significant stenosis in the proximal LEFT lower extremity runoff. Three- vessel runoff to the ankle with somewhat diminutive peroneal artery. 3. Infrarenal abdominal aortic aneurysm with peripheral mural thrombus measuri ng 4.3 x 3.9 cm AP by transverse increased in size since 2018 4. Celiac and SMA are patent. Proximal renal arteries are patent. LEFT gastric arises from the abdominal aorta. 5. Retroaortic LEFT renal vein. 6. Additional nonvascular findings described above.
[2022-01-05 12:33] LABS: Blood Urea Nitrogen 8 mg/dL (8-23)
[2022-01-05] MEDS: iohexol 350 mg/mL 100 mL Btl IV (12:53)
== END 2022-01-05 11:47 | disposition home or self-care (01) ==
PROVIDERS: PCP Nurse Practitioner Family; Visit Provider Internal Medicine Cardiovascular Disease
DX: I71.4 Abdominal aortic aneurysm, without rupture (principal)
CPT/HCPCS: 75635; 82565; 84520

== ENCOUNTER 2022-02-11 07:59 | Outpatient (CLI) | payer MEDICARE, MEDICAID, SELFPAY ==
--- NOTE | 2022-02-11 08:21 | MM_ITS ---
WS: [id number] Bilateral screening 3D tomosynthesis digital mammogram, 02/11/2022 Clinical Data: SCREEN Comparison: 01/26/2021, 10/16/2019, 06/19/2018, 06/07/2018, 05/30/2017, 05/27/2016, 02/27/2014, 01/29/2013, 12/24, 07/14/2011, 01/27/2011, 01/05/2010, 05/06/2008, 01/18/2008, 12/12/2006. Findings: The breast parenchymal pattern shows fat replacement. No spiculated masses or clustered calcification s are seen. There are no secondary signs of carcinoma. MM/[place] [id number] Impression: 1. Negative bilateral mammogram unchanged. 2. Recommend annual screening mammograms. BIRADS: 1-Negative FOLLOW UP: 1 Year Follow-up The CAD mechanical and auto body car checker was used.
== END 2022-02-11 08:00 | disposition home or self-care (01) ==
LOC: RAD 08:01
PROVIDERS: PCP Nurse Practitioner Family; Visit Provider Nurse Practitioner Family
DX: Z12.31 Encounter for screening mammogram for malignant neoplasm of breast (principal)
CPT/HCPCS: 77063; 77067

== ENCOUNTER 2022-04-05 20:27 | Emergency (ER) | payer MEDICARE, MEDICAID, SELFPAY ==
--- NOTE | 2022-04-05 20:36 | ECG_ITS ---
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 Measurements Intervals [place]y Rate: 69 P: 55 MO: 183 QRS: 56 QRSD: 114 T: 19 QT: 382 QTc: 410 Interpretive Statements SINUS RHYTHM WITH OCCASIONAL VENTRICULAR PREMATURE COMPLEXES LEFT ATRIAL ENLARGEMENT [-0.15mV P-WAVE IN V1/V2] MODERATE INTRAVENTRICULAR CONDUCTION DELAY [110+ ms QRS DURATION] NONSPECIFIC T-WAVE ABNORMALITY Compared to ECG 08/09/2017 11:10:46 Intraventricular conduction delay now present T-wave abnormality now present Myocardial infarct finding no longer present Electronically Signed On 04-06-2022 0:08:00 DIESEL POWERPLANT SUPERVISOR by Hanna Ryan M.D. [id number]
[2022-04-05 20:39] VITALS: BP 138/75; PULSE 71; RESP 18; TEMP 36.4; O2SAT 95; BMI 35.2
--- NOTE | 2022-04-05 20:39 | XRR_ITS ---
PROCEDURE INFORMATION: Exam: XR Chest Exam date and time: 04/05/2022 8:51 PM Age: 71 years old Clinical indication: Angina pectoris and chest pressure and chest wall pain; Additional info: Cp TECHNIQUE: Imaging protocol: Radiologic exam of the chest. Views: 1 view. COMPARISON: CR XR chest 2V* [id number] 10/15/2018 10:14 AM FINDINGS: Lungs: Unremarkable. No consolidation. Pleural spaces: Unremarkable. No pleural effusion. No pneumothorax. Heart/Mediastinum: Unremarkable. No cardiomegaly. Vasculature: Mild vascular calcification. Bones/joints: [id number]-[id number] thoracic spine DJD. XR/XR chest 1V portable [id number] IMPRESSION: No acute findings.
[2022-04-05 21:05] LABS: Basophils # 0.1 10^3/uL (0.0-0.1); Basophils % 0.7 %; Eosinophils # 0.1 10^3/uL (0.0-0.8); Eosinophils % 2.1 %; Hematocrit 46.8 % (37.0-47.0); Hemoglobin 15.5 g/dL (11.5-15.3); Lymphocytes # 3.5 10^3/uL (0.8-4.8); Lymphocytes % 51.3 %; Mean Corpuscular HGB Conc 33.1 g/dL (30.0-36.0); Mean Corpuscular Volume 93.6 fl (81-99); Mean Platelet Volume 10.4 fL (7.4-10.4); Monocytes # 0.5 10^3/uL (0.2-0.9); Monocytes % 7.6 %; Neutrophils # 2.58 10^3/uL (1.8-7.7); Neutrophils % 38.2 %; Nucleated Red Blood Cells % 0 %; Platelet Count 189 10^3/cmm (130-400); Red Cell Distribution Width 13.3 % (12.1-15.1); White Blood Count 6.8 10^3/uL (4.0-10.0)
[2022-04-05 21:26] LABS: Troponin(5th) Baseline 6 ng/L (0-10)
[2022-04-05 21:27] LABS: Albumin Level 4.1 g/dL (3.5-5.2); Alkaline Phosphatase 79 U/L (35-105); Blood Urea Nitrogen 9 mg/dL (8-23); Calcium 9.4 mg/dL (8.5-10.5); Carbon Dioxide 31 mmol/L (22-29); Chloride 96 mmol/L (98-107); Globulin 3.3 g/dL (1.3-4.6); Glucose 134 mg/dL (65-115); Osmolality Calculated 285 mOsm/kg (285-295); Sodium 137 mmol/L (136-145); Total Bilirubin 0.4 mg/dL (0.15-1.2); Total Protein 7.4 g/dL (6.6-8.7)
[2022-04-05 22:09] VITALS: BP 160/73; PULSE 68; RESP 13; O2SAT 96
[2022-04-05 22:18] VITALS: BP 160/73; PULSE 65; RESP 16; O2SAT 95
--- NOTE | 2022-04-05 22:27 | W.ED.CHESTPA ---
HPI - Chest Pain General: Chief Complaint: Chest Pain Stated Complaint: cp Time Seen by Provider: 04/05/22 21:58 Source: patient Mode of arrival: ambulatory Limitations: no limitations History of Present Illness: 71-year-old female who states that she has been having chest pain since this afternoon states been intermittent in [id number] sharp pain in the center of her chest she denies any worsening proving factors states she has had a slight cough she denies any nausea denies any diaphoresis states she is currently pain-free denies any radiation of her pain. Associated symptoms: Deny abdominal pain, dyspnea, fever(s), nausea or vomiting Review of Systems Const: Denies: fever(s), chills, body aches or change in appetite Eyes: Denies: blurry vision or eye discomfort ENMT: Denies: throat pain or dental pain Card: Reports: chest pain Resp: Denies: dyspnea GI: Denies: abdominal pain, nausea, vomiting or diarrhea : Denies: dysuria Musc: Denies: neck pain or back pain Skin/Breast: Denies: rash Neuro: Denies: headache(s) Psych: Denies: depression Abhi/Lymph: Denies: easy bruising All/Imm: Denies: urticaria PFSH ED PFSH: Medical History Abdominal aortic aneurysm DDD (degenerative disc disease), lumbar Displacement of intervertebral disc of lumbar region Encounter for long-term opiate analgesic use Long-term use of high-risk medication Lumbar radiculitis Lumbar spine pain Neck pain Pain management contract signed Primary osteoarthritis Spastic dysphonia Spondylosis Tobacco use Motivated to quit Tremor Surgical History S/P appendectomy S/P cholecystectomy S/P hysterectomy Status post coronary artery stent placement Family History Brother CAD (coronary artery disease) Hypertension Grandmother Diabetes Other Hyperlipidemia Denies family history of Cancer Stroke Social History Smoking and tobacco status: current every day smoker cigarettes [ Other cigarette details: 04/25 PPD] Quit status (tobacco): not considering quitting Alcohol intake: never Adopted: No Caregiver/support person: No Lives independently: Yes Household members: spouse History of recent travel: No Physical Exam Const: COMMON NORMALS: no acute distress, patient oriented x3 and healthy appearing HENMT: COMMON NORMALS: normocephalic and atraumatic HEAD & SCALP: normocephalic and atraumatic Eye: COMMON NORMALS: Equal, round and reactive pupils present and EOMs intact bilaterally PUPIL: Yes Equal, round and reactive pupils present Neck/C-Spine: COMMON NORMALS: full ROM and supple Chest: COMMONS NORMALS: normal inspection of the chest and normal palpation of entire chest wall Resp: COMMON NORMALS: normal respiratory effort, No retractions, No use of accessory muscles and clear to auscultation bilaterally AUSCULTATION: clear to auscultation bilaterally Cardio: COMMON NORMALS: regular rate, regular rhythm and No murmurs present (Cardio) RATE: regular rate RHYTHM: regular rhythm GI: COMMON NORMALS: Normal to inspection, nondistended, normoactive bowel sounds present, Soft to palpation, non-tender and no masses PALPATION: Yes Soft to palpation Extremity: COMMON NORMALS: normal to inspection and full ROM Neuro: COMMON NORMALS: patient oriented x3, moves all extremities and no focal motor deficits Psych: COMMON NORMALS: mental status grossly normal, Normal thought process present and cooperative THOUGHT PROCESS: Normal thought process present Skin: COMMON NORMALS: no rashes or lesions noted and no wounds GENERAL SKIN EXAM: no rashes or lesions noted Course Vital Signs: Vital signs: Vital Signs Temperature 97.6 F 04/05/22 20:39 Pulse Rate 65 04/05/22 22:18 Respiratory Rate 16 04/05/22 22:18 Blood Pressure 160/73 04/05/22 22:18 Pulse Oximetry 95 04/05/22 22:18 Oxygen Delivery Me thod 04/05/22 22:18 MDM - Chest Pain Medical Decision Making Patient presents with chest pains atypical in nature she has been pain-free here actually initial repeat troponins are normal she is well-appearing no signs of pulm embolism she is stable for discharge she has follow-up with PCP and return if worsening. Lab Data 04/05/22 20:55 04/05/22 20:55 Radiology Impressions Chest X-Ray 04/05/22 20:39 IMPRESSION: No acute findings. Laboratory Results WBC 6.8 10^3/uL (4.0-10.0) 04/05/22 20:55 RBC 5.00 10^6/uL (4.1-5.3) 04/05/22 20:55 Hgb 15.5 g/dL (11.5-15.3) H 04/05/22 20:55 Hct 46.8 % (37.0-47.0) 04/05/22 20:55 MCV 93.6 fl (81-99) 04/05/22 20: MCH 31.0 pg (28.0-34.0) 04/05/22 20: MCHC 33.1 g/dL (30.0-36.0) 04/05/22 20: RDW 13.3 % (12.1-15.1) 04/05/22 20: Plt Count 189 10^3/cmm (130-400) 04/05/22 20:55 MPV 10.4 fL (7.4-10.4) 04/05/22 20:55 Neut % (Auto) 38.2 % 04/05/22 20:55 Lymph % (Auto) 51.3 % 04/05/22 20:55 [place] % (Auto) 7.6 % 04/05/22 20:55 Eos % (Auto) 2.1 % 04/05/22 20: Baso % (Auto) 0.7 % 04/05/22 20:55 Neut # (Auto) 2.58 10^3/uL (1.8-7.7) 04/05/22 20: Lymph # (Auto) 3.5 10^3/uL (0.8-4.8) 04/05/22 20:55 [place] # (Auto) 0.5 10^3/uL (0.2-0.9) 04/05/22 20:55 Eos # (Auto) 0.1 10^3/uL (0.0-0.8) 04/05/22 20: Baso # (Auto) 0.1 10^3/uL (0.0-0.1) 04/05/22 20:55 Nucleated RBC % (auto) 0 % 04/05/22 20: Nucleated RBCs # 0.0 /100WBC 04/05/22 20:55 Sodium 137 mmol/L (136-145) 04/05/22 20:55 Chloride 96 mmol/L (98-107) L 04/05/22 20:55 Carbon Dioxide 31 mmol/L (22-29) H 04/05/22 20:55 BUN 9 mg/dL (8-23) 04/05/22 20:55 Creatinine 0.7 mg/dL (0.5-0.9) 04/05/22 20:55 GFR Calculation 83.0 mL/min (90-130) L 04/05/22 20:55 Glucose 134 mg/dL (65-115) H 04/05/22 20:55 Calculated Osmolality 285 mOsm/kg (285-295) 04/05/22 20:55 Calcium 9.4 mg/dL (8.5-10.5) 04/05/22 20:55 Total Bilirubin 0.4 mg/dL (0.15-1.2) 04/05/22 20:55 ALT 14 U/L (0-33) 04/05/22 20:55 Alkaline Phosphatase 79 U/L (35-105) 04/05/22 20:55 Troponin T Baseline 6 ng/L (0-10) 04/05/22 20:55 Troponin T 120 Minute 6.00 ng/L (0-10) 04/05/22 21:51 Total Protein 7.4 g/dL (6.6-8.7) 04/05/22 20:55 Albumin 4.1 g/dL (3.5-5.2) 04/05/22 20:55 Globulin 3.3 g/dL (1.3-4.6) 04/05/22 20:55 Discharge Plan Discharge Patient Disposition: Home Clinical Impression: Chest pain Condition: Stable Prescriptions: No Action aspirin 81 mg tablet,delayed release (DR/EC) 81 mg PO QAM calcium carbonate-vitamin D3 500 mg(1,250mg) -125 unit tablet 1 tab PO QAM Healthy Eyes SuperVision [id number] otmc-ou-[id number] capsule 1 cap PO DAILY (DME) ASHELY BRACE See Rx Instructions .Route .MEDSUPPLY Qty: 1 0RF Rx Instructions: As directed hydrocodone-acetaminophen 10-325 mg tablet 1 tab PO .5 TIMES DAILY PRN (Reason: pain) 30 Days Qty: 150 0RF Rx Instructions: Fill on or after 06/04/21 hydrocodone-acetaminophen 10-325 mg tablet 1 tab PO .5 times a day PRN (Reason: pain) 30 Days Qty: 150 0RF Rx Instructions: Fill on or after 07/03/21 tizanidine 4 mg tablet 4 mg PO TID PRN (Reason: muscle spasticity) 30 Days Qty: 90 1RF nitroglycerin 0.4 mg tablet, sublingual See Rx Instructions .ROUTE .COMPLEX Qty: 25 11RF Dose Instruction: DISSOLVE 1 TABLET UNDER THE TONGUE EVERY 5 MINUTES NEEDED FOR CHEST PAIN. DO NOT EXCEED A TOTAL OF 3 DOSES IN 15 MINUTES. Rx Instructions: DISSOLVE 1 TABLET UNDER THE TONGUE EVERY 5 MINUTES NEEDED FOR CHEST PAIN. DO NOT EXCEED A TOTAL OF 3 DOSES IN 15 MINUTES. furosemide 40 mg tablet 40 mg PO QAM Qty: 90 2RF atorvastatin 80 mg tablet 80 mg PO DAILY Qty: 90 0RF clopidogrel 75 mg tablet 75 mg PO QAM Qty: 90 0RF lisinopril 5 mg tablet 5 mg PO BEDTIME Qty: 90 0RF metformin 1,000 mg tablet 1,000 mg PO BID Qty: 180 3RF buspirone 10 mg tablet See Rx Instructions .ROUTE .COMPLEX Qty: 60 11RF Dose Instruction: TAKE ONE TABLET BY MOUTH TWICE DAILY Rx Instructions: TAKE ONE TABLET BY MOUTH TWICE DAILY isosorbide mononitrate 30 mg tablet extended release 24 hr 30 mg PO QAM Qty: 30 11RF metoprolol succinate 25 mg tablet extended release 24 hr 25 mg PO QAM Qty: 30 11RF methimazole 5 mg tablet See Rx Instructions .ROUTE .COMPLEX Qty: 30 11RF Dose Instruction: TAKE ONE TABLET BY MOUTH EVERY DAY Rx Instructions: TAKE ONE TABLET BY MOUTH EVERY DAY Discharge Orders: Discharge ED (Routine); Ordered 04/05/22 Ordered By: Michele Anne Referrals: Jen Florian INSTRUMENTATION AND CONTROLS TECHNICIAN [Primary Care Provider] - 1-3 days Discharge Diet: Advance as tolerated Discharge Activity: Resume usual activity Patient Instructions: Chest Pain (ED) Coding Level of Care Code ED Area Mechanic for Nasir Panda
[2022-04-05 22:38] LABS: Anion Gap 13.7 (5-19); Aspartate Amino Transferase 15 U/L (0-32); Potassium 3.7 mmol/L (3.5-5.1)
--- NOTE | 2022-04-05 22:39 | ECG_ITS ---
[facility] Test Date: 2022-04-05 Pat Name: Falguni Bond Department: Room: Gender: Female Endodontic Assistant: : 1950 Requested By: Michele Anne Order Number: [id number] Jorge MD: Hanna Ryan M.D. Measurements Intervals [place] Rate: 59 P: 43 ME: 176 QRS: 58 QRSD: 126 T: 8 QT: 427 QTc: 424 Interpretive Statements SINUS BRADYCARDIA WITH SINUS ARRHYTHMIA MODERATE INTRAVENTRICULAR CONDUCTION DELAY [110+ ms QRS DURATION] NONSPECIFIC T-WAVE ABNORMALITY Compared to ECG 04/05/2022 20:36:24 Sinus rhythm no longer present Ventricular premature complex(es) no longer present Atrial abnormality no longer present T-wave abnormality still present Electronically Signed On 04-06-2022 18:21:18 [place]ILLER by Hanna Ryan M.D. [id number]
[2022-04-05 22:40] LABS: Alanine Aminotransferase 13 U/L (0-33)
[2022-04-05 22:43] LABS: Troponin 5 2HR Delta 0 ABS# (0-10)
[2022-04-05 22:58] VITALS: PULSE 61; RESP 16; O2SAT 94
== END 2022-04-05 22:00 | disposition home or self-care (01) ==
PROVIDERS: Emergency Provider Emergency Medicine; PCP Nurse Practitioner Family
DX: R07.9 Chest pain, unspecified (principal); Z79.84 Long term (current) use of oral hypoglycemic drugs; Z79.02 Long term (current) use of antithrombotics/antiplatelets; Z79.82 Long term (current) use of aspirin; F17.210 Nicotine dependence, cigarettes, uncomplicated
CPT/HCPCS: 36415; 71045; 80053; 84484; 85025; 93005; 99285

== ENCOUNTER → 2022-04-11 10:31 | Outpatient (BNVA) | payer MEDICARE, MEDICAID, SELFPAY | PROVIDERS: PCP Nurse Practitioner Family; Visit Provider Internal Medicine Cardiovascular Disease | DX: R07.9 Chest pain, unspecified (principal); I10 Essential (primary) hypertension; I25.10 Atherosclerotic heart disease of native coronary artery without angina pectoris; I42.9 Cardiomyopathy, unspecified; I71.40 Abdominal aortic aneurysm, without rupture, unspecified; F17.210 Nicotine dependence, cigarettes, uncomplicated | CPT/HCPCS: 99214 ==

== ENCOUNTER 2022-04-18 09:27 | Emergency (ER) | payer MEDICARE, MEDICAID, SELFPAY ==
[2022-04-18 10:52] VITALS: BP 127/65; PULSE 78; RESP 14; TEMP 36.6; O2SAT 95
[2022-04-18] MEDS: dexamethasone 10 mg/mL INJ IM (12:49)
[2022-04-18] MEDS: orphenadrine 30 mg/mL Inj 2 mL 60 MG IM (12:50)
[2022-04-18] MEDS: ketorolac 60 mg/2 mL INJ IM (12:51)
[2022-04-18 14:20] VITALS: BP 95/61; PULSE 65; RESP 14; O2SAT 94
--- NOTE | 2022-04-18 14:34 | W.ED.BACK ---
HPI - Back Pain/Injury General: Chief Complaint: Back Pain/Injury Stated Complaint: back pain Time Seen by Provider: 04/18/22 11:57 History of Present Illness: Patient is a 71-year-old female that presents to the emergency department with complaints of low back pain. Onset of symptoms 3 days ago. Patient reports she was lifting an object to the counter when she felt a sudden burst of pain in her midline low back. Pain does not radiate and she denies numbness and tingling. Denies any bowel or bladder function. Patient has taken her prescribed hydrocodone but does not have any relief. Associated symptoms: Deny abdominal pain, chills, difficulty walking, dysuria, fatigue, fever(s), hematuria, nausea, urinary urgency or vomiting Review of Systems General: Reports: 10 or more systems reviewed and unremarkable except in HPI and below Const: Denies: fever(s), chills, change in appetite, change in weight, fatigue or malaise Eyes: Denies: change in vision, eye discomfort, eye discharge or eye redness ENMT: Denies: throat pain, enlarged tonsils, odynophagia, hoarseness, ear or mastoid pain, ear discharge, change in hearing, tinnitus, nasal discharge, nasal congestion, post nasal drip or sinus pain Card: Denies: chest pain, palpitations, irregular heart rhythm, edema, dyspnea on exertion, orthopnea or leg pain with exertion Resp: Denies: dyspnea, productive cough, non-productive cough, wheezing, stridor or chest congestion GI: Denies: abdominal pain, nausea, vomiting, dysphagia, diarrhea, constipation, bloating, GI cramping or hematochezia : Denies: flank pain, difficulty voiding, dysuria, urinary frequency, urinary urgency, urinary hesitancy, oliguria or hematuria Musc: Denies: neck pain, back pain, extremity pain, joint pain, joint swelling, joint redness, joint warmth or muscle weakness Skin/Breast: Denies: rash, pruritus, erythema, photosensitivity or new lesions Neuro: Denies: headache(s), numbness in extremities, weakness in extremities, sensory changes, lack of coordination, difficulty walking, frequent falls, dizziness, confusion, Slurred speech present, difficulty communicating thoughts, seizure-like activity or involuntary movements Endo: Denies: polyuria, polydipsia or tired all the time Abhi/Lymph: Denies: easy bruising or easy bleeding PFSH ED PFSH: Medical History Abdominal aortic aneurysm DDD (degenerative disc disease), lumbar Displacement of intervertebral disc of lumbar region Encounter for long-term opiate analgesic use Long-term use of high-risk medication Lumbar radiculitis Lumbar spine pain Neck pain Pain management contract signed Primary osteoarthritis Spastic dysphonia Spondylosis Tobacco use Motivated to quit Tremor Surgical History S/P appendectomy S/P cholecystectomy S/P hysterectomy Status post coronary artery stent placement Family History Brother CAD (coronary artery disease) Hypertension Grandmother Diabetes Other Hyperlipidemia Social History Smoking and tobacco status: current every day smoker cigarettes [ Other cigarette details: 04/25 PPD] Quit status (tobacco): not considering quitting Alcohol intake: never Adopted: No Caregiver/support person: No Lives independently: Yes Household members: spouse History of recent travel: No Physical Exam Const: COMMON NORMALS: no acute distress, average body habitus, patient oriented x3, no limitations, healthy appearing, alert and well nourished GENERAL APPEARANCE: cooperative, comfortable and well developed; not in distress and not anxious ORIENTATION/CONSCIOUSNESS: Yes awake, Yes oriented to person, Yes oriented to place and Yes oriented to time HENMT: COMMON NORMALS: normocephalic, atraumatic, hearing grossly normal bilaterally, external ears normal, EAC's normal, TM's normal bilaterally, Normal external nose present and Normal nasal mucous membranes and turbinates present HEAD & SCALP: normal to inspection, normocephalic and atraumatic FACE & SINUS: normal facial exam and face symmetric NOSE: Normal external nose present, Normal nares present and Normal nasal mucous membranes and turbinates present GENERAL EAR: hearing not grossly impaired EXTERNAL EAR: Yes external ears normal and Yes no periauricular adenopathy EXTERNAL AUDITORY CANAL: EAC's normal TYMPANIC MEMBRANE: TM's normal bilaterally MOUTH: Normal oral and palatal mucosa present, lip normal, tongue normal and Normal salivary glands and ducts present THROAT: posterior oropharynx normal, tonsils normal and uvula midline Eye: COMMON NORMALS: Equal, round and reactive pupils present, EOMs intact bilaterally, conjunctivae normal, no scleral icterus and no papilledema GENERAL EYE: appearance normal, both eyes and all related structures ALIGNMENT: Yes alignment normal PERIORBITAL: periorbital findings normal EYELID: eyelids normal CONJUNCTIVA: Yes conjunctivae normal PUPIL: Yes Equal, round and reactive pupils present DIRECT OPHTHALMOSCOPY: Yes no papilledema Neck/C-Spine: COMMON NORMALS: full ROM, supple, no meningeal signs and no JVD GENERAL: Yes normal visual inspection CERVICAL SPINE: Yes cervical ROM normal Lymph: LYMPHATIC: no lymphadenopathy noted Chest: COMMONS NORMALS: normal inspection of the chest Breast/axilla inspection: Yes no chest deformity, asymmetry, normal contours, no nodules, masses, tenderness Resp: COMMON NORMALS: normal respiratory effort, No retractions, No use of accessory muscles and clear to auscultation bilaterally EFFORT & INSPECTION: Yes able to speak in complete sentences, Yes symmetric chest movement, No abnormal respiratory pattern, No tachypneic and No respiratory distress AUSCULTATION: clear to auscultation bilaterally Cardio: COMMON NORMALS: no JVD, regular rate, regular rhythm and Peripheral pulses 2+ throughout RATE: regular rate RHYTHM: regular rhythm PERIPHERAL PULSES: Peripheral pulses 2+ throughout GI: COMMON NORMALS: Normal to inspection, nondistended, normoactive bowel sounds present, Soft to palpation and non-tender INSPECTION: Yes normal to inspection PALPATION: Yes Soft to palpation : COMMON NORMALS: Yes no CVA tenderness BLADDER/KIDNEY EXAM: Yes no CVA tenderness and Yes CVA tenderness Back/Pelvis: COMMON NORMALS: no CVA tenderness, thoracic and lumbar spine normal to inspection, thoraco-lumbar ROM normal and straight leg raise negative bilaterally GENERAL BACK: Yes CVA tenderness and No ecchymosis THORACIC SPINE/UPPER BACK: Yes normal to inspection LUMBAR SPINE/LOWER BACK: Yes normal to inspection and Yes straight leg raise negative bilaterally Extremity: COMMON NORMALS: normal to inspection, full ROM and capillary refill normal GENERAL: Yes normal exam except as noted Neuro: COMMON NORMALS: patient oriented x3 SENSORIUM/ORIENTATION: Yes alert, Yes oriented to person, Yes oriented to place and Yes oriented to time MENINGEAL SIGNS: Yes no meningeal signs Psych: COMMON NORMALS: mental status grossly normal, Normal thought process present, cooperative, normal affect, speech normal and activity/motor behavior normal SPEECH: Yes normal speech THOUGHT PROCESS: Normal thought process present Skin: COMMON NORMALS: no rashes or lesions noted, no wounds, turgor normal, no jaundice, no petechiae and no mottling GENERAL SKIN EXAM: no rashes or lesions noted and turgor normal Course Vital Signs: Vital signs: Vital Signs Temperature 97.8 F 04/18/22 10:52 Pulse Rate 65 04/18/22 14:20 Respiratory Rate 14 04/18/22 14:20 Blood Pressure 95/61 04/18/22 14:20 Pulse Oximetry 94 04/18/22 14:20 Oxygen Delivery Me thod 04/18/22 14:20 MDM - Back Pain/Injury Medical Decision Making Patient was evaluated in the emergency department today for for lumbar back pain. She describes an event where she strained her back. Denies any trauma or falls. Patient reports she has been taking prescription medications but has not experienced any relief. Prescriptions include tizanidine and hydrocodone. Patient has had no trauma or falls. Therefore no diagnostics are warranted at this time. She does not have any radicular symptoms, weakness, paresthesias and therefore MRI or CT not indicated at this time I did treat patient's pain with Norflex and ketorolac. Patient reports her symptoms have improved. Patient does have a primary care provider and she will be following up with them this week. I have advised her to return to the emergency department for new, concerning, worsening symptoms. Differential Diagnosis Likely lumbar radiculopathy, sciatica, strain of lumbar region and thoracic back pain Medical Records Spondylosis, spondylolisthesis Discharge Plan Discharge Patient Disposition: Home Clinical Impression: Acute lumbar back pain Condition: Stable Prescriptions: New tizanidine 4 mg tablet 4 mg PO BID PRN (Reason: muscle spasticity) Qty: 20 0RF No Action aspirin 81 mg tablet,delayed release (DR/EC) 81 mg PO QAM calcium carbonate-vitamin D3 500 mg(1,250mg) -125 unit tablet 1 tab PO QAM Healthy Eyes SuperVision [id number] dktt-[id number] capsule 1 cap PO DAILY loperamide 2 mg capsule 2 mg PO Q6H PRN acetaminophen [Tylenol] 325 mg tablet 325 mg PO QID PRN (DME) ASHELY BRACE See Rx Instructions .Route .MEDSUPPLY Qty: 1 0RF Rx Instructions: As directed hydrocodone-acetaminophen 10-325 mg tablet 1 tab PO .5 TIMES DAILY PRN (Reason: pain) 30 Days Qty: 150 0RF Rx Instructions: Fill on or after 06/04/21 hydrocodone-acetaminophen 10-325 mg tablet 1 tab PO .5 times a day PRN (Reason: pain) 30 Days Qty: 150 0RF Rx Instructions: Fill on or after 07/03/21 tizanidine 4 mg tablet 4 mg PO TID PRN (Reason: muscle spasticity) 30 Days Qty: 90 1RF nitroglycerin 0.4 mg tablet, sublingual See Rx Instructions .ROUTE .COMPLEX Qty: 25 11RF Dose Instruction: DISSOLVE 1 TABLET UNDER THE TONGUE EVERY 5 MINUTES NEEDED FOR CHEST PAIN. DO NOT EXCEED A TOTAL OF 3 DOSES IN 15 MINUTES. Rx Instructions: DISSOLVE 1 TABLET UNDER THE TONGUE EVERY 5 MINUTES NEEDED FOR CHEST PAIN. DO NOT EXCEED A TOTAL OF 3 DOSES IN 15 MINUTES. furosemide 40 mg tablet 40 mg PO QAM Qty: 90 2RF atorvastatin 80 mg tablet 80 mg PO DAILY Qty: 90 0RF clopidogrel 75 mg tablet 75 mg PO QAM Qty: 90 0RF lisinopril 5 mg tablet 5 mg PO BEDTIME Qty: 90 0RF metformin 1,000 mg tablet 1,000 mg PO BID Qty: 180 3RF buspirone 10 mg tablet See Rx Instructions .ROUTE .COMPLEX Qty: 60 11RF Dose Instruction: TAKE ONE TABLET BY MOUTH TWICE DAILY Rx Instructions: TAKE ONE TABLET BY MOUTH TWICE DAILY isosorbide mononitrate 30 mg tablet extended release 24 hr 30 mg PO QAM Qty: 30 11RF metoprolol succinate 25 mg tablet extended release 24 hr 25 mg PO QAM Qty: 30 11RF methimazole 5 mg tablet See Rx Instructions .ROUTE .COMPLEX Qty: 30 11RF Dose Instruction: TAKE ONE TABLET BY MOUTH EVERY DAY Rx Instructions: TAKE ONE TABLET BY MOUTH EVERY DAY Discharge Orders: Discharge ED (Routine); Ordered 04/18/22 Ordered By: Fay Fontana Referrals: Jen Florian, BALLING HEAD TENDER [Primary Care Provider] - Discharge Diet: Advance as tolerated Discharge Activity: Resume usual activity Patient Instructions: Opioid Safety, Pain Management Activity Restrictions/Additional Instructions: Use heat and ice as needed for back pain Use the tizanidine muscle relaxer as needed for back spasm. Avoid additional sedating medications Follow-up with primary care doctor this week. Call for an appointment Coding Level of Care Code ED Federal Agent for Nasir Panda
== END 2022-04-18 14:26 | disposition home or self-care (01) ==
PROVIDERS: Emergency Provider Nurse Practitioner; PCP Nurse Practitioner Family
DX: M54.50 Low back pain, unspecified (principal); Z79.84 Long term (current) use of oral hypoglycemic drugs; Z79.02 Long term (current) use of antithrombotics/antiplatelets; Z79.82 Long term (current) use of aspirin; F17.210 Nicotine dependence, cigarettes, uncomplicated
CPT/HCPCS: 96372; 99284; J1100; J1885; J2360

== ENCOUNTER 2022-05-03 23:30 | Emergency (ER) | payer MEDICARE, MEDICAID, SELFPAY ==
[2022-05-03 23:41] VITALS: BP 154/90; PULSE 87; RESP 16; TEMP 36.4; O2SAT 95; BMI 35.7
[2022-05-04 00:09] VITALS: BP 159/82; PULSE 69; RESP 16; O2SAT 93
[2022-05-04] MEDS: HYDROcodone-acetaminophen 10-325 mg Tablet 1 TAB PO (00:17)
[2022-05-04 00:45] LABS: Urine Color Other (Yellow)
[2022-05-04 00:46] LABS: Urine Appearance Cloudy (CLEAR); pH Urine 7 (5-7)
[2022-05-04 00:47] LABS: Bilirubin Urine Neg (Negative); Blood Urine 3+ (Negative); Glucose Urine UA Norm (Normal); Ketones Urine Negative (Negative); Nitrate Urine Negative (Negative); Protein Urine 2+ (Negative); Urobilinogen Urine Norm (Negative)
[2022-05-04 00:48] LABS: Add Urine Culture? Yes; Add Urine Microscopic? YES; Bacteria Urine 3+ /hpf; Leukocyte Esterase Urine 2+ (Negative); RBC Urine TOO NUMEROUS TO CNT /hpf (0-2); WBC Urine TOO NUMEROUS TO CNT /hpf (0-5)
--- NOTE | 2022-05-04 01:00 | ED_ITS ---
Documented by User: DAHIANA Allred 05/04/22 01:05 HPI - Female Genitourinary General: Chief complaint: Urogenital-Female Stated complaint: blood in urine Time Seen by Provider: 05/03/22 23:44 History of Present Illness: Patient is in today for blood in her urine. She reported that the night before last she started noticing blood a couple times that she wiped. She reports that last night her urine was full of blood and sometimes clots. She has had some suprapubic pain. She denies any fever, chills, nausea, vomiting. She reports that in the past, couple years ago, she had a really severe urinary tract infection and had blood like this. She reports her symptoms were worse at that time than they are currently. Associated symptoms: Deny abdominal pain, headache(s) or nausea Review of Systems Const: Denies: fever(s) or chills Card: Denies: chest pain, palpitations or irregular heart rhythm Resp: Denies: dyspnea, productive cough or non-productive cough GI: Denies: abdominal pain, nausea or vomiting : Reports: dysuria, urinary frequency and hematuria; Denies: flank pain, difficulty voiding, urinary urgency or urinary hesitancy Neuro: Denies: headache(s) PFSH ED PFSH: Medical History Abdominal aortic aneurysm Coronary artery disease DDD (degenerative disc disease), lumbar Displacement of intervertebral disc of lumbar region Encounter for long-term opiate analgesic use Essential hypertension Generalized osteoarthritis Long-term use of high-risk medication Lumbar radiculitis Lumbar spine pain Neck pain Pain management contract signed Primary osteoarthritis Spastic dysphonia Spondylosis Tobacco use Motivated to quit Tremor Type 2 diabetes mellitus without complications Surgical History S/P appendectomy S/P cholecystectomy S/P hysterectomy Status post coronary artery stent placement Family History Brother CAD (coronary artery disease) Hypertension Grandmother Diabetes Other Hyperlipidemia Social History Smoking and tobacco status: current every day smoker cigarettes [ Other cigarette details: 1/2 PPD] Quit status (tobacco): not considering quitting Alcohol intake: never Adopted: No Caregiver/support person: No Lives independently: Yes Household members: spouse History of recent travel: No Physical Exam Const: COMMON NORMALS: no acute distress, patient oriented x3 and alert Neck/C-Spine: COMMON NORMALS: no JVD Resp: COMMON NORMALS: normal respiratory effort, No use of accessory muscles and clear to auscultation bilaterally AUSCULTATION: clear to auscultation bilaterally Cardio: COMMON NORMALS: no JVD, regular rate, regular rhythm, S1 normal heart sound present and S2 normal heart sound present RATE: regular rate RHYTHM: regular rhythm HEART SOUNDS: S1 normal heart sound present and S2 normal heart sound present GI: COMMON NORMALS: Normal to inspection, nondistended, normoactive bowel sounds present, Soft to palpation and non-tender PALPATION: Yes Soft to palpation and Yes Tenderness to palpation present (GI) (Suprapubic) : COMMON NORMALS: Yes no CVA tenderness BLADDER/KIDNEY EXAM: Yes no CVA tenderness Back/Pelvis: COMMON NORMALS: no CVA tenderness Neuro: COMMON NORMALS: patient oriented x3 SENSORIUM/ORIENTATION: Yes alert Course Vital Signs: Vital signs: Vital Signs Temperature 97.6 F 05/03/22 23:41 Pulse Rate 69 05/04/22 00:09 Respiratory Rate 16 05/04/22 00:09 Blood Pressure 159/82 05/04/22 00:09 Pulse Oximetry 93 05/04/22 00:09 Oxygen Delivery Me thod 05/03/22 23:41 MDM - Female Medical Decision Making Differentials include urinary tract infection, renal stone, hematuria UA dip is positive for leukoesterase, urine bacteria, 3+ blood. Treat patient for cystitis and urine for culture. During the course of patient's ER visit she requested hydrocodone 10 mg - 325 mg to be administered because she forgot to take her home nighttime dose prior to coming here. Patient is requesting this for her chronic pain issues not for her current abdominal pain. She reports suprapubic pain is mild and mostly when she is urinating. Advised patient of possible benefits and side effects of antibiotic medication provided today. Advised her of typical course of illness. Make sure she is staying well- hydrated take antibiotic as directed. Follow-up with her primary care provider as needed. Return to the ER for any new or worsening symptoms. Lab Data Laboratory Results Urine Color Other (Yellow) 05/03/22 23:59 Urine Appearance Cloudy (CLEAR) A 05/03/22 23:59 Urine pH 7 (5-7) 05/03/22 23:59 Ur Specific [place] 1.010 (1.005-1.030) 05/03/22 23:59 Urine Protein 2+ (Negative) H 05/03/22 23:59 Urine Glucose (UA) Norm (Normal) 05/03/22 23:59 Urine Ketones Negative (Negative) 05/03/22 23:59 Urine Blood 3+ (Negative) H 05/03/22 23:59 Urine Nitrate Negative (Negative) 05/03/22:59 Urine Bilirubin Neg (Negative) 05/03/22 23: Urine Urobilinogen Norm mg/dL (Negative) 05/03/22 23:59 Ur Leukocyte Esterase 2+ (Negative) H 05/03/22 23:59 Urine RBC Too numerous to cnt /hpf (0-2) H 05/03/22:59 Urine WBC Too numerous to cnt /hpf (0-5) H 05/03/22 23:59 Ur Squamous Epith Cells None /hpf (0-5) 05/03/22 23:59 Amorphous Sediment Not Reportable 05/03/22:59 Urine Bacteria 3+ /hpf (NONE) H 05/03/22 23:59 Discharge Plan Discharge Patient Disposition: Home Clinical Impression: Cystitis Condition: Stable Prescriptions: New nitrofurantoin monohyd/m-cryst 100 mg capsule 100 mg PO BID 7 Days Qty: 14 0RF Rx Instructions: must administer with a meal/food No Action aspirin 81 mg tablet,delayed release (DR/EC) 81 mg PO QAM calcium carbonate-vitamin D3 500 mg(1,250mg) -125 unit tablet 1 tab PO QAM Healthy Eyes SuperVision [id number] capsule 1 cap PO DAILY loperamide 2 mg capsule 2 mg PO Q6H PRN acetaminophen [Tylenol] 325 mg tablet 325 mg PO QID PRN (DME) ASHELY BRACE See Rx Instructions .Route .MEDSUPPLY Qty: 1 0RF Rx Instructions: As directed hydrocodone-acetaminophen 10-325 mg tablet 1 tab PO .5 TIMES DAILY PRN (Reason: pain) 30 Days Qty: 150 0RF Rx Instructions: Fill on or after 06/04/21 hydrocodone-acetaminophen 10-325 mg tablet 1 tab PO .5 times a day PRN (Reason: pain) 30 Days Qty: 150 0RF Rx Instructions: Fill on or after 07/03/21 tizanidine 4 mg tablet 4 mg PO TID PRN (Reason: muscle spasticity) 30 Days Qty: 90 1RF prednisone 20 mg tablet 20 mg PO DAILY Qty: 5 0RF nitroglycerin 0.4 mg tablet, sublingual See Rx Instructions .ROUTE .COMPLEX Qty: 25 11RF Dose Instruction: DISSOLVE 1 TABLET UNDER THE TONGUE EVERY 5 MINUTES NEEDED FOR CHEST PAIN. DO NOT EXCEED A TOTAL OF 3 DOSES IN 15 MINUTES. Rx Instructions: DISSOLVE 1 TABLET UNDER THE TONGUE EVERY 5 MINUTES NEEDED FOR CHEST PAIN. DO NOT EXCEED A TOTAL OF 3 DOSES IN 15 MINUTES. furosemide 40 mg tablet 40 mg PO QAM Qty: 90 2RF atorvastatin 80 mg tablet 80 mg PO DAILY Qty: 90 0RF clopidogrel 75 mg tablet 75 mg PO QAM Qty: 90 0RF lisinopril 5 mg tablet 5 mg PO BEDTIME Qty: 90 0RF metformin 1,000 mg tablet 1,000 mg PO BID Qty: 180 3RF buspirone 10 mg tablet See Rx Instructions .ROUTE .COMPLEX Qty: 60 11RF Dose Instruction: TAKE ONE TABLET BY MOUTH TWICE DAILY Rx Instructions: TAKE ONE TABLET BY MOUTH TWICE DAILY isosorbide mononitrate 30 mg tablet extended release 24 hr 30 mg PO QAM Qty: 30 11RF metoprolol succinate 25 mg tablet extended release 24 hr 25 mg PO QAM Qty: 30 11RF methimazole 5 mg tablet See Rx Instructions .ROUTE .COMPLEX Qty: 30 11RF Dose Instruction: TAKE ONE TABLET BY MOUTH EVERY DAY Rx Instructions: TAKE ONE TABLET BY MOUTH EVERY DAY tizanidine 4 mg tablet 4 mg PO BID PRN (Reason: muscle spasticity) Qty: 20 0RF Discharge Orders: Discharge ED (Routine); Ordered 05/04/22 Ordered By: Carmela Joaquin Referrals: Jen Florian FNP [Primary Care Provider] - Discharge Diet: Usual diet Discharge Activity: Increase activity as tolerated Patient Instructions: Urinary Tract Infection in Women (ED) Activity Restrictions/Additional Instructions: Take antibiotics as directed. Make sure that you are staying well-hydrated. Follow-up with primary care provider next week for reevaluation. Return to the ER for any new or worsening symptoms Coding Level of Care Code ED Radiologic Therapist for Chg Fwd Exam Detailed Documented by User: Sandeep Rodriguez MD 05/10/22 06:57 HPI - Female Genitourinary General: Chief complaint: Urogenital-Female Stated complaint: blood in urine Time Seen by Provider: 05/03/22 23:44 PFSH ED PFSH: Medical History Abdominal aortic aneurysm Coronary artery disease DDD (degenerative disc disease), lumbar Displacement of intervertebral disc of lumbar region Encounter for long-term opiate analgesic use Essential hypertension Generalized osteoarthritis Long-term use of high-risk medication Lumbar radiculitis Lumbar spine pain Neck pain Pain management contract signed Primary osteoarthritis Spastic dysphonia Spondylosis Tobacco use Motivated to quit Tremor Type 2 diabetes mellitus without complications Surgical History S/P appendectomy S/P cholecystectomy S/P hysterectomy Status post coronary artery stent placement Family History Brother CAD (coronary artery disease) Hypertension Grandmother Diabetes Other Hyperlipidemia Social History Smoking and tobacco status: current every day smoker cigarettes [ Other cigarette details: 04/25 PPD] Quit status (tobacco): not considering quitting Alcohol intake: never Adopted: No Caregiver/support person: No Lives independently: Yes Household members: spouse History of recent travel: No Course Vital Signs: Vital signs: Vital Signs Temperature 97.6 F 05/03/22 23:41 Pulse Rate 69 05/04/22 00:09 Respiratory Rate 16 05/04/22 00:09 Blood Pressure 159/82 05/04/22 00:09 Pulse Oximetry 93 05/04/22 00:09 Oxygen Delivery Me thod 05/03/22 23:41 MDM - Female Medical Decision Making Differentials include urinary tract infection, renal stone, hematuria UA dip is positive for leukoesterase, urine bacteria, 3+ blood. Treat patient for cystitis and urine for culture. During the course of patient's ER visit she requested hydrocodone 10 mg - 325 mg to be administered because she forgot to take her home nighttime dose prior to coming here. Patient is requesting this for her chronic pain issues not for her current abdominal pain. She reports suprapubic pain is mild and mostly when she is urinating. Advised patient of possible benefits and side effects of antibiotic medication provided today. Advised her of typical course of illness. Make sure she is staying well- hydrated take antibiotic as directed. Follow-up with her primary care provider as needed. Return to the ER for any new or worsening symptoms. I reviewed this documentation. Sandeep Rodriguez MD Emergency Medicine Lab Data Laboratory Results Urine Color Other (Yellow) 05/03/22 23:59 Urine Appearance Cloudy (CLEAR) A 05/03/22 23:59 Urine pH 7 (5-7) 05/03/22 23:59 Ur Specific [place] 1.010 (1.005-1.030) 05/03/22 23:59 Urine Protein 2+ (Negative) H 05/03/22 23:59 Urine Glucose (UA) Norm (Normal) 05/03/22 23:59 Urine Ketones Negative (Negative) 05/03/22 23:59 Urine Blood 3+ (Negative) H 05/03/22 23:59 Urine Nitrate Negative (Negative) 05/03/22 23:59 Urine Bilirubin Neg (Negative) 05/03/22 23:59 Urine Urobilinogen Norm mg/dL (Negative) 05/03/22 23:59 Ur Leukocyte Esterase 2+ (Negative) H 05/03/22 23:59 Urine RBC Too numerous to cnt /hpf (0-2) H 05/03/22 23:59 Urine WBC Too numerous to cnt /hpf (0-5) H 05/03/22 23:59 Ur Squamous Epith Cells None /hpf (0-5) 05/03/22 23:59 Amorphous Sediment Not Reportable 05/03/22 23:59 Urine Bacteria 3+ /hpf (NONE) H 05/03/22 23:59 Discharge Plan Discharge Patient Disposition: Home Clinical Impression: Cystitis Condition: Stable Prescriptions: New nitrofurantoin monohyd/m-cryst 100 mg capsule 100 mg PO BID 7 Days Qty: 14 0RF Rx Instructions: must administer with a meal/food No Action aspirin 81 mg tablet,delayed release (DR/EC) 81 mg PO QAM calcium carbonate-vitamin D3 500 mg(1,250mg) -125 unit tablet 1 tab PO QAM Healthy Eyes SuperVision [id number] ubaj-rk-[id number] capsule 1 cap PO DAILY loperamide 2 mg capsule 2 mg PO Q6H PRN acetaminophen [Tylenol] 325 mg tablet 325 mg PO QID PRN (DME) ASHELY BRACE See Rx Instructions .Route .MEDSUPPLY Qty: 1 0RF Rx Instructions: As directed hydrocodone-acetaminophen 10-325 mg tablet 1 tab PO .5 TIMES DAILY PRN (Reason: pain) 30 Days Qty: 150 0RF Rx Instructions: Fill on or after 06/04/21 hydrocodone-acetaminophen 10-325 mg tablet 1 tab PO .5 times a day PRN (Reason: pain) 30 Days Qty: 150 0RF Rx Instructions: Fill on or after 07/03/21 tizanidine 4 mg tablet 4 mg PO TID PRN (Reason: muscle spasticity) 30 Days Qty: 90 1RF prednisone 20 mg tablet 20 mg PO DAILY Qty: 5 0RF nitroglycerin 0.4 mg tablet, sublingual See Rx Instructions .ROUTE .COMPLEX Qty: 25 11RF Dose Instruction: DISSOLVE 1 TABLET UNDER THE TONGUE EVERY 5 MINUTES NEEDED FOR CHEST PAIN. DO NOT EXCEED A TOTAL OF 3 DOSES IN 15 MINUTES. Rx Instructions: DISSOLVE 1 TABLET UNDER THE TONGUE EVERY 5 MINUTES NEEDED FOR CHEST PAIN. DO NOT EXCEED A TOTAL OF 3 DOSES IN 15 MINUTES. furosemide 40 mg tablet 40 mg PO QAM Qty: 90 2RF atorvastatin 80 mg tablet 80 mg PO DAILY Qty: 90 0RF clopidogrel 75 mg tablet 75 mg PO QAM Qty: 90 0RF lisinopril 5 mg tablet 5 mg PO BEDTIME Qty: 90 0RF metformin 1,000 mg tablet 1,000 mg PO BID Qty: 180 3RF buspirone 10 mg tablet See Rx Instructions .ROUTE .COMPLEX Qty: 60 11RF Dose Instruction: TAKE ONE TABLET BY MOUTH TWICE DAILY Rx Instructions: TAKE ONE TABLET BY MOUTH TWICE DAILY isosorbide mononitrate 30 mg tablet extended release 24 hr 30 mg PO QAM Qty: 30 11RF metoprolol succinate 25 mg tablet extended release 24 hr 25 mg PO QAM Qty: 30 11RF methimazole 5 mg tablet See Rx Instructions .ROUTE .COMPLEX Qty: 30 11RF Dose Instruction: TAKE ONE TABLET BY MOUTH EVERY DAY Rx Instructions: TAKE ONE TABLET BY MOUTH EVERY DAY tizanidine 4 mg tablet 4 mg PO BID PRN (Reason: muscle spasticity) Qty: 20 0RF Discharge Orders: Discharge ED (Routine); Ordered 05/04/22 Ordered By: Carmela Joaquin Referrals: Jen Florian FNP [Primary Care Provider] - Discharge Diet: Usual diet Discharge Activity: Increase activity as tolerated Patient Instructions: Urinary Tract Infection in Women (ED) Activity Restrictions/Additional Instructions: Take antibiotics as directed. Make sure that you are staying well-hydrated. Follow-up with primary care provider next week for reevaluation. Return to the ER for any new or worsening symptoms Coding Level of Care Code ED Radiologic Therapist for Nasir Fwd Exam Detailed
[2022-05-04] MEDS: nitrofurantoin SR (BID) 100 mg Capsule PO (01:01)
== END 2022-05-04 01:06 | disposition home or self-care (01) ==
PROVIDERS: Emergency Medicine; Emergency Provider Nurse Practitioner Family; PCP Nurse Practitioner Family
DX: N30.90 Cystitis, unspecified without hematuria (principal); Z79.02 Long term (current) use of antithrombotics/antiplatelets; Z79.82 Long term (current) use of aspirin; Z79.84 Long term (current) use of oral hypoglycemic drugs; F17.210 Nicotine dependence, cigarettes, uncomplicated; I25.10 Atherosclerotic heart disease of native coronary artery without angina pectoris; I10 Essential (primary) hypertension; E11.9 Type 2 diabetes mellitus without complications
CPT/HCPCS: 81001; 87086; 99283

== ENCOUNTER → 2022-05-10 13:36 | Outpatient (BNVA) | payer MEDICARE, MEDICAID, SELFPAY | PROVIDERS: PCP Nurse Practitioner Family; Visit Provider Clinical Nurse Specialist Adult Health | DX: N30.90 Cystitis, unspecified without hematuria (principal); Z79.899 Other long term (current) drug therapy | CPT/HCPCS: 81000; 87086 ==

== ENCOUNTER → 2022-08-22 14:52 | Outpatient (BNVA) | payer MEDICARE, MEDICAID, SELFPAY | PROVIDERS: PCP Family Medicine; Visit Provider Clinical Nurse Specialist Adult Health | DX: R35.0 Frequency of micturition (principal); E11.9 Type 2 diabetes mellitus without complications | CPT/HCPCS: 80053; 81000; 83036; 84443; 85025; 85651; 86140; 87077; 87086; 87184 ==

== ENCOUNTER 2022-12-28 12:00 | Outpatient (CLI) | payer MEDICARE, MEDICAID, SELFPAY ==
--- NOTE | 2022-12-28 12:00 | CT_ITS ---
WS: [id number] CTA ABDOMINAL AORTA WITH RUNOFF TECHNIQUE: Contrast enhanced CTA of the abdominal aorta with bilateral lower extremity runoff. Multip lanar reformatted images were obtained. MIP reformats were also reviewed. CLINICAL INFORMATION: To be done in December 2022 COMPARISON: None. DLP: 1741.[address] scans at [facility] use at least one of these dose optimization techniques: automated e xposure control; mA and/or kV adjustment per patient size (includes targeted exams where dose is matc hed to clinical indication); or iterative reconstruction. FINDINGS: Prior cholecystectomy and hysterectomy. Infrarenal abdominal arctic aneurysm with periphera l mural thrombus measures slightly more prominent today 4.3 x 4.0 cm compared to 4.2 x 3.9 cm previou s. Celiac and SMA are patent. LEFT gastric arises from the abdominal aorta. Proximal renal arteries are patent. Stable LEFT adrenal adenoma. Normal renal parenchymal enhancement. No hydronephrosis. Tiny fat-contai haley umbilical hernia. RIGHT: RIGHT common iliac artery is patent. External iliac artery is patent. Common femoral artery is patent. Deep femoral artery is patent. Superficial femoral artery is patent to the adductor hiatus. Popliteal artery is patent. Two-vessel runoff to the ankle. 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 LEFT: LEFT common iliac artery is patent. External iliac artery is patent. Common femoral artery is p atent. Superficial femoral artery and deep femoral arteries are patent. Popliteal artery is patent to the trifurcation. Three-vessel runoff to the ankle. Somewhat diminutive peroneal artery unchanged fr om previous. IMPRESSION: 1. Infrarenal abdominal arctic aneurysm with peripheral mural thrombus measures slightly more promin ent today 4.3 x 4.0 cm compared to 4.2 x 3.9 cm previous. 2. Celiac and SMA are patent. The LEFT gastric arises from the abdominal aorta. 3. Proximal renal arteries are patent. 4. 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 5. Retroaortic LEFT renal vein. 6. Hysterectomy and cholecystectomy.
[2022-12-28 12:38] LABS: Blood Urea Nitrogen 10 mg/dL (8-23); Glomerular Filtration Rate 70.9 mL/min (90-130)
[2022-12-28] MEDS: iohexol 350 mg/mL 500 mL Btl (per mL) IV (12:52)
== END 2022-12-28 12:01 | disposition home or self-care (01) ==
PROVIDERS: PCP Clinical Nurse Specialist Adult Health; Visit Provider Internal Medicine Cardiovascular Disease
DX: I71.43 Infrarenal abdominal aortic aneurysm, without rupture (principal); I77.89 Other specified disorders of arteries and arterioles
CPT/HCPCS: 75635; 82565; 84520; Q9967

== ENCOUNTER 2023-02-03 11:53 | Emergency (ER) | payer MEDICARE, MEDICAID, SELFPAY ==
[2023-02-03 12:14] VITALS: BP 148/79; PULSE 90; RESP 17; TEMP 36.5; O2SAT 95; BMI 44.9
--- NOTE | 2023-02-03 12:51 | W.ED.BACK ---
HPI - Back Pain/Injury General: Chief Complaint: Back Pain/Injury Stated Complaint: lower back pain Time Seen by Provider: 02/03/23 12:23 History of Present Illness: 72-year-old female presents emergency room with bilateral lower back pain that started yesterday after getting off the commode. Patient described the pain as aching sensation with severity of 7 out of 10 especially with movement. Patient has any dysuria, hematuria, nausea, vomiting, no numbness or tingling to lower extremity. Is any bladder or bowel dysfunction. No direct fall or lower back trauma. Associated symptoms: Deny chills, difficulty walking, dysuria, fatigue, fever(s), hematuria or urinary urgency Review of Systems General: Reports: 10 or more systems reviewed and unremarkable except in HPI and below Const: Denies: fever(s), chills, body aches, change in appetite, change in weight or fatigue Card: Denies: chest pain, palpitations, irregular heart rhythm, edema, swelling of feet/ankles or lightheadedness Resp: Denies: dyspnea, productive cough, non-productive cough or wheezing : Denies: difficulty voiding, dysuria, urinary frequency, urinary urgency, urinary hesitancy, dribbling, nocturia, oliguria or hematuria Musc: Reports: back pain and muscle cramps; Denies: neck pain, extremity pain, extremity swelling, joint pain, joint swelling, joint redness, joint warmth, muscle weakness, decrease in muscle mass, loss of height or deformity Neuro: Denies: headache(s), numbness in extremities, weakness in extremities, sensory changes, lack of coordination, difficulty walking, dizziness, vertigo, confusion, behavioral changes, Slurred speech present, difficulty communicating thoughts, seizure-like activity, involuntary movements or restless legs PFS ED PFSH: Medical History (Updated 02/03/23 @ 13:13 by Abilio Hernandez MD) Abdominal aortic aneurysm Coronary artery disease DDD (degenerative disc disease), lumbar Displacement of intervertebral disc of lumbar region Encounter for long-term opiate analgesic use Essential hypertension Generalized osteoarthritis Long-term use of high-risk medication Lumbar radiculitis Lumbar spine pain Neck pain Pain management contract signed Primary osteoarthritis Screening for breast cancer Spastic dysphonia Spondylosis Tobacco use Motivated to quit Tremor Type 2 diabetes mellitus without complications Surgical History S/P appendectomy S/P cholecystectomy S/P hysterectomy Status post coronary artery stent placement Family History Brother CAD (coronary artery disease) Hypertension Grandmother Diabetes Other Hyperlipidemia Social History Smoking and tobacco/nicotine status: current every day tobacco/nicotine user cigarettes [ Other cigarette details: 04/25 PPD] Quit status (tobacco/nicotine): not considering quitting Alcohol intake: never Substance/Drug Use: never Adopted: No Caregiver/support person: No Lives independently: Yes Household members: spouse Physical Exam Const: COMMON NORMALS: no acute distress and patient oriented x3 HENMT: COMMON NORMALS: normocephalic, atraumatic, hearing grossly normal bilaterally, external ears normal, EAC's normal, TM's normal bilaterally, Normal external nose present, Normal nasal mucous membranes and turbinates present, moist oral mucous membranes, oropharynx normal, dentition normal and gingiva normal HEAD & SCALP: normocephalic and atraumatic NOSE: Normal external nose present and Normal nasal mucous membranes and turbinates present EXTERNAL EAR: Yes external ears normal EXTERNAL AUDITORY CANAL: EAC's normal TYMPANIC MEMBRANE: TM's normal bilaterally Neck/C-Spine: COMMON NORMALS: full ROM, no lymphadenopathy, supple, no meningeal signs, no JVD, Thyroid normal and No carotid bruits THYROID: Thyroid normal Chest: COMMONS NORMALS: normal inspection of the chest, normal palpation of entire chest wall, normal inspection of the breasts and normal palpation of the breasts Breast/axilla inspection: Yes normal inspection of the breasts BREAST/AXILLA PALPATION: Yes normal palpation of the breasts Cardio: COMMON NORMALS: no JVD, regular rate, regular rhythm, S1 normal heart sound present and S2 normal heart sound present RATE: regular rate RHYTHM: regular rhythm HEART SOUNDS: S1 normal heart sound present and S2 normal heart sound present GI: COMMON NORMALS: Normal to inspection, nondistended, normoactive bowel sounds present, Soft to palpation, non-tender, No hepatosplenomegaly present, no masses and no bruits PALPATION: Yes Soft to palpation and Yes No hepatosplenomegaly present : BLADDER/KIDNEY EXAM: No CVA tenderness Back/Pelvis: GENERAL BACK: No CVA tenderness, No mass, No erythema, No warmth, No ecchymosis and Yes tenderness LUMBAR SPINE/LOWER BACK: No lumbar spinal tenderness, Yes paraspinal muscle tenderness, Yes paraspinal muscle spasm, No mass present, No Lumbar scoliosis, No straight leg raise negative bilaterally and Yes straight leg raise positive right Extremity: COMMON NORMALS: normal to inspection, full ROM, capillary refill normal, no joint enlargement, no clubbing, cyanosis or edema, no calf tenderness and no pedal edema Neuro: COMMON NORMALS: patient oriented x3, CN's II-XII intact bilaterally, moves all extremities, no focal motor deficits and no sensory deficits noted MENINGEAL SIGNS: Yes no meningeal signs Skin: COMMON NORMALS: no rashes or lesions noted, no wounds, turgor normal, no jaundice, no petechiae and no mottling GENERAL SKIN EXAM: no rashes or lesions noted and turgor normal Course Vital Signs: Vital signs: Vital Signs Temperature 98.2 F 02/03/23 13:36 Pulse Rate 80 02/03/23 13:36 Respiratory Rate 18 02/03/23 13:36 Blood Pressure 166/83 02/03/23 13:36 Pulse Oximetry 94 02/03/23 13:36 Oxygen Delivery Me thod Room Air 02/03/23 12:52 MDM - Back Pain/Injury Medical Decision Making Patient made comfortable emergency room. Patient was given IM pain medication. Patient will be discharged home with pain medication and muscle relaxant. Close follow-up PCP recommended next to 3 days. Patient was told to return to emergency room if symptoms persist or worsen. Differential Diagnosis Likely lumbar radiculopathy, sciatica, strain of lumbar region, renal colic, pyelonephritis, thoracic back pain and discitis No radiology studies performed this visit Discharge Plan Discharge Patient Disposition: Home Clinical Impression: Lumbar paraspinal muscle spasm Condition: Stable Prescriptions: New tramadol 50 mg tablet 25 mg PO Q6H PRN (Reason: pain) Qty: 20 0RF No Action aspirin 81 mg tablet,delayed release (DR/EC) 81 mg PO QAM calcium carbonate-vitamin D3 500 mg(1,250mg) -125 unit tablet 1 tab PO QAM Healthy Eyes SuperVision [id number] capsule 1 cap PO DAILY acetaminophen [Tylenol] 325 mg tablet 325 mg PO QID PRN hydrocodone-acetaminophen 10-325 mg tablet 1 tab PO .5 TIMES DAILY PRN (Reason: pain) 30 Days Qty: 150 0RF Rx Instructions: Fill on or after 06/04/21 hydrocodone-acetaminophen 10-325 mg tablet 1 tab PO .5 times a day PRN (Reason: pain) 30 Days Qty: 150 0RF Rx Instructions: Fill on or after 07/03/21 tizanidine 4 mg tablet 4 mg PO TID PRN (Reason: muscle spasticity) 30 Days Qty: 90 1RF nitroglycerin 0.4 mg tablet, sublingual See Rx Instructions .ROUTE .COMPLEX Qty: 25 11RF Dose Instruction: DISSOLVE 1 TABLET UNDER THE TONGUE EVERY 5 MINUTES NEEDED FOR CHEST PAIN. DO NOT EXCEED A TOTAL OF 3 DOSES IN 15 MINUTES. Rx Instructions: DISSOLVE 1 TABLET UNDER THE TONGUE EVERY 5 MINUTES NEEDED FOR CHEST PAIN. DO NOT EXCEED A TOTAL OF 3 DOSES IN 15 MINUTES. clopidogrel 75 mg tablet 75 mg PO QAM Qty: 90 3RF atorvastatin 80 mg tablet 80 mg PO DAILY Qty: 90 3RF furosemide 40 mg tablet 40 mg PO QAM Qty: 90 3RF isosorbide mononitrate 30 mg tablet extended release 24 hr 30 mg PO QAM Qty: 90 3RF lisinopril 5 mg tablet 5 mg PO BEDTIME Qty: 90 3RF metoprolol succinate 25 mg tablet extended release 24 hr 25 mg PO QAM Qty: 90 3RF buspirone 10 mg tablet See Rx Instructions .ROUTE .COMPLEX Qty: 60 11RF Dose Instruction: TAKE ONE TABLET BY MOUTH TWICE DAILY Rx Instructions: TAKE ONE TABLET BY MOUTH TWICE DAILY metformin 1,000 mg tablet 1,000 mg PO BID Qty: 180 3RF methimazole 5 mg tablet See Rx Instructions .ROUTE .COMPLEX Qty: 30 11RF Dose Instruction: TAKE ONE TABLET BY MOUTH EVERY DAY Rx Instructions: TAKE ONE TABLET BY MOUTH EVERY DAY Discharge Orders: Discharge ED (Routine); Ordered 02/03/23 Ordered By: Abilio Hernandez Referrals: Cm Camejo, COMPLIANCE NURSE [Primary Care Provider] - Discharge Diet: Advance as tolerated Discharge Activity: Resume usual activity Patient Instructions: Opioid Safety, Pain Management Coding Level of Care Code ED Voice Writing Reporter for Nasir Panda
[2023-02-03 12:52] VITALS: BP 166/83; PULSE 80; RESP 18; TEMP 36.8; O2SAT 94
[2023-02-03] MEDS: ketorolac 30 mg/mL INJ IM (13:31)
[2023-02-03 13:36] VITALS: BP 166/83; PULSE 80; RESP 18; TEMP 36.8; O2SAT 94
== END 2023-02-03 13:36 | disposition home or self-care (01) ==
PROVIDERS: Emergency Provider Family Medicine; PCP Clinical Nurse Specialist Adult Health
DX: M62.830 Muscle spasm of back (principal); Z79.82 Long term (current) use of aspirin; Z79.02 Long term (current) use of antithrombotics/antiplatelets; Z79.84 Long term (current) use of oral hypoglycemic drugs; F17.210 Nicotine dependence, cigarettes, uncomplicated; I25.10 Atherosclerotic heart disease of native coronary artery without angina pectoris; I10 Essential (primary) hypertension; E11.9 Type 2 diabetes mellitus without complications
CPT/HCPCS: 96372; 99284; J1885

== ENCOUNTER 2023-02-05 19:17 | Emergency (ER) | payer MEDICARE, MEDICAID, SELFPAY ==
[2023-02-05] VITALS (8 sets, daily range): BP systolic 146–156; BP diastolic 67–95; PULSE 64–80; RESP 18–20; TEMP 36.3–36.9; O2SAT 90–98; BMI 36.1
[2023-02-05 20:47] LABS: Add Urine Culture? Yes; Add Urine Microscopic? YES; Bacteria Urine 3+ /hpf; Bilirubin Urine Neg (Negative); Blood Urine 2+ (Negative); Glucose Urine UA 1+ (Normal); Ketones Urine Negative (Negative); Leukocyte Esterase Urine 2+ (Negative); Nitrate Urine Negative (Negative); Protein Urine Neg (Negative); RBC Urine 0-4 /hpf (0-2); Squamous Epithelial Cell Urine 0-4 /hpf (0-5); Urine Appearance Hazy (CLEAR); Urine Color Yellow (Yellow); Urobilinogen Urine Neg (Negative); WBC Urine 25-40 /hpf (0-5); pH Urine 7 (5-7)
--- NOTE | 2023-02-05 20:47 | ED_ITS ---
HPI - Back Pain/Injury General: Chief Complaint: Back Pain/Injury Stated Complaint: Back Pain Time Seen by Provider: 02/05/23 20:39 Source: patient Mode of arrival: wheelchair Limitations: physical limitation History of Present Illness: patient is a 72-year-old female who presents the emergency room with lower back pain. Patient reports pain is located in the left flank area. Patient states that she was here recently on Monday for similar symptoms But pain has increasingly worsened and states is unbearable at this time. Patient states that she did try to fill her tramadol at local pharmacy but was unable to due to double amount of narcotics. Patient denies any fevers, chills, abdominal pain. Patient does report some burning on urination. MD elicited complaint: back pain Pertinent past history: prior back pain Associated symptoms: Reports dysuria and urinary urgency; Deny abdominal pain, chills, fever(s), nausea or vomiting Review of Systems Const: Denies: fever(s), chills, body aches or change in appetite Eyes: Denies: blurry vision or eye discomfort ENMT: Denies: throat pain or dental pain Card: Denies: chest pain Resp: Denies: dyspnea GI: Denies: abdominal pain, nausea, vomiting or diarrhea : Reports: flank pain, dysuria and urinary urgency Musc: Reports: back pain; Denies: neck pain Skin/Breast: Denies: rash Neuro: Denies: headache(s) Psych: Denies: depression Abhi/Lymph: Denies: easy bruising All/Imm: Denies: urticaria PFSH ED PFSH: Medical History (Updated 02/05/23 @ 22:30 by Michele Anne MD) Abdominal aortic aneurysm Coronary artery disease DDD (degenerative disc disease), lumbar Displacement of intervertebral disc of lumbar region Encounter for long-term opiate analgesic use Essential hypertension Generalized osteoarthritis Long-term use of high-risk medication Lumbar radiculitis Lumbar spine pain Neck pain Pain management contract signed Primary osteoarthritis Screening for breast cancer Spastic dysphonia Spondylosis Tobacco use Motivated to quit Tremor Type 2 diabetes mellitus without complications Surgical History S/P appendectomy S/P cholecystectomy S/P hysterectomy Status post coronary artery stent placement Family History Brother CAD (coronary artery disease) Hypertension Grandmother Diabetes Other Hyperlipidemia Social History Smoking and tobacco/nicotine status: current every day tobacco/nicotine user cigarettes [ Other cigarette details: / PPD] Quit status (tobacco/nicotine): not considering quitting Alcohol intake: never Substance/Drug Use: never Adopted: No Caregiver/support person: No Lives independently: Yes Household members: spouse Physical Exam Const: COMMON NORMALS: no acute distress, patient oriented x3 and healthy appearing HENMT: COMMON NORMALS: normocephalic and atraumatic HEAD & SCALP: normocephalic and atraumatic Eye: COMMON NORMALS: Equal, round and reactive pupils present and EOMs intact bilaterally PUPIL: Yes Equal, round and reactive pupils present Neck/C-Spine: COMMON NORMALS: full ROM and supple Chest: COMMONS NORMALS: normal inspection of the chest and normal palpation of entire chest wall Resp: COMMON NORMALS: normal respiratory effort, No retractions, No use of accessory muscles and clear to auscultation bilaterally AUSCULTATION: clear to auscultation bilaterally Cardio: COMMON NORMALS: regular rate, regular rhythm and No murmurs present (Cardio) RATE: regular rate RHYTHM: regular rhythm GI: COMMON NORMALS: Normal to inspection, nondistended, normoactive bowel sounds present, Soft to palpation, non-tender and no masses PALPATION: Yes Soft to palpation Back/Pelvis: LUMBAR SPINE/LOWER BACK: Yes normal to inspection and Yes lumbar spinal tenderness Extremity: COMMON NORMALS: normal to inspection and full ROM Neuro: COMMON NORMALS: patient oriented x3, moves all extremities and no focal motor deficits Psych: COMMON NORMALS: mental status grossly normal, Normal thought process present and cooperative THOUGHT PROCESS: Normal thought process present Skin: COMMON NORMALS: no rashes or lesions noted and no wounds GENERAL SKIN EXAM: no rashes or lesions noted Course Vital Signs: Vital signs: Vital Signs Temperature 98.4 F 02/05/23 20:35 Pulse Rate 80 02/05/23 22:52 Respiratory Rate 20 H 02/05/23 22:52 Blood Pressure 152/67 02/05/23 22:52 Pulse Oximetry 94 02/05/23 22:52 Oxygen Delivery Me thod Room Air 02/05/23 22:07 MDM - Back Pain/Injury Medical Decision Making Patient presents with back pain she does have a urinary tract infection blood work CT of her abdomen showed no acute abnormalities her pain has improved here she has no signs of cord compression or epidural abscess she is stable for discharge we will place her on Keflex she is to follow-up with PCP and return if worsening. Medical Records I reviewed the patient's medical records. Labs I reviewed the patient's lab results. 02/05/23 21:14 02/05/23 21:14 Radiology Impressions Abdomen/Pelvis CT 02/05/23 20:57 IMPRESSION: 1. Stable nonobstructing left renal stone. 2. Diffuse, mild wall thickening of the bladder. In the correct clinical setting, this may suggest cystitis. Recommend correlation with laboratory findings. Alternatively, this may be secondary to chronic outlet obstruction. 3. Aneurysm of the infrarenal abdominal aorta measures up to 4.9 x 4.4 cm, stable in size compared with 01/05/2022. The aneurysm does not involve the iliac arteries. No evidence for aneurysm rupture. 4. Incidental/nonacute findings are listed in the report. Laboratory Results WBC 7.47 10^3/uL (3.29-11.43) 02/05/23 21:14 RBC 4.99 10^6/uL (3.85-5.65) 02/05/23 21:14 Hgb 15.20 g/dL (11.27-16.99) 02/05/23 21:14 Hct 46.9 % (36-47) 02/05/23 21:14 MCV 94.0 fl (85-98) 02/05/23 21:14 MCH 30.5 pg (27-33) 02/05/23 21:14 MCHC 32.4 g/dL (30-55) 02/05/23 21:14 RDW 13.6 % (12.1-15.1) 02/05/23 21:14 Plt Count 184 10^3/cmm (157-399) 02/05/23 21:14 MPV 10.2 fL (7.4-10.4) 02/05/23 21:14 Neut % (Auto) 61.8 % 02/05/23 21:14 Lymph % (Auto) 28.4 % 02/05/23 21:14 Randolph % (Auto) 7.2 % 02/05/23 21:14 Eos % (Auto) 1.6 % 02/05/23 21:14 Baso % (Auto) 0.7 % 02/05/23 21:14 Neut # (Auto) 4.62 10^3/uL (1.8-7.7) 02/05/23 21:14 Lymph # (Auto) 2.1 10^3/uL (0.8-4.8) 02/05/23 21:14 Randolph # (Auto) 0.5 10^3/uL (0.2-0.9) 02/05/23 21:14 Eos # (Auto) 0.1 10^3/uL (0.0-0.8) 02/05/23 21:14 Baso # (Auto) 0.1 10^3/uL (0.0-0.1) 02/05/23 21:14 Nucleated RBC % (auto) 0 % 02/05/23 21:14 Nucleated RBCs # 0.0 /100WBC 02/05/23 21:14 Sodium 137 mmol/L (136-145) 02/05/23 21:14 Potassium 4.3 mmol/L (3.5-5.1) 02/05/23 21:14 Chloride 97 mmol/L (98-107) L 02/05/23 21:14 Carbon Dioxide 33 mmol/L (22-29) H 02/05/23 21:14 Anion Gap 11.3 (5-19) 02/05/23 21:14 BUN 8 mg/dL (8-23) 02/05/23 21:14 Creatinine 0.6 mg/dL (0.5-0.9) 02/05/23 21:14 GFR Calculation 98.8 mL/min (90-130) 02/05/23 21:14 Glucose 199 mg/dL (65-115) H 02/05/23 21:14 Calculated Osmolality 288 mOsm/kg (285-295) 02/05/23 21:14 Calcium 9.3 mg/dL (8.5-10.5) 02/05/23 21:14 Total Bilirubin 0.3 mg/dL (0.15-1.2) 02/05/23 21:14 AST 15 U/L (0-32) 02/05/23 21:14 ALT 18 U/L (0-33) 02/05/23 21:14 Alkaline Phosphatase 89 U/L (35-105) 02/05/23 21:14 Total Protein 6.9 g/dL (6.6-8.7) 02/05/23 21:14 Albumin 4.1 g/dL (3.5-5.2) 02/05/23 21:14 Globulin 2.8 g/dL (1.3-4.6) 02/05/23 21:14 Urine Color Yellow (Yellow) 02/05/23 20:26 Urine Appearance Hazy (CLEAR) A 02/05/23 20: Urine pH 7 (5-7) 02/05/23 20: Ur Specific Thornton 1.000 (1.005-1.030) L 02/05/23 20: Urine Protein Neg (Negative) 02/05/23 20: Urine Glucose (UA) 1+ (Normal) H 02/05/23 20: Urine Ketones Negative (Negative) 02/05/23 20: Urine Blood 2+ (Negative) H 02/05/23 20: Urine Nitrate Negative (Negative) 02/05/23 20: Urine Bilirubin Neg (Negative) 02/05/23 20: Urine Urobilinogen Neg mg/dL (Negative) 02/05/23 20: Ur Leukocyte Esterase 2+ (Negative) H 02/05/23 20:26 Urine RBC 0-4 /hpf (0-2) H 02/05/23 20:26 Urine WBC 25-40 /hpf (0-5) H 02/05/23 20:26 Ur Squamous Epith Cells 0-4 /hpf (0-5) H 02/05/23 20: Amorphous Sediment Not Reportable 02/05/23 20: Urine Bacteria 3+ /hpf (NONE) H 02/05/23 20:26 All radiology interpretation(s) finalized by discharge Discharge Plan Discharge Patient Disposition: Home Clinical Impression: Acute cystitis, Back pain Condition: Stable Prescriptions: New cephalexin 500 mg capsule 500 mg PO TID 7 Days Qty: 21 0RF No Action aspirin 81 mg tablet,delayed release (DR/EC) 81 mg PO QAM calcium carbonate-vitamin D3 500 mg(1,250mg) -125 unit tablet 1 tab PO QAM Healthy Eyes SuperVision [id number] capsule 1 cap PO DAILY acetaminophen [Tylenol] 325 mg tablet 325 mg PO QID PRN hydrocodone-acetaminophen 10-325 mg tablet 1 tab PO .5 TIMES DAILY PRN (Reason: pain) 30 Days Qty: 150 0RF Rx Instructions: Fill on or after 06/04/21 hydrocodone-acetaminophen 10-325 mg tablet 1 tab PO .5 times a day PRN (Reason: pain) 30 Days Qty: 150 0RF Rx Instructions: Fill on or after 07/03/21 tizanidine 4 mg tablet 4 mg PO TID PRN (Reason: muscle spasticity) 30 Days Qty: 90 1RF nitroglycerin 0.4 mg tablet, sublingual See Rx Instructions .ROUTE .COMPLEX Qty: 25 11RF Dose Instruction: DISSOLVE 1 TABLET UNDER THE TONGUE EVERY 5 MINUTES NEEDED FOR CHEST PAIN. DO NOT EXCEED A TOTAL OF 3 DOSES IN 15 MINUTES. Rx Instructions: DISSOLVE 1 TABLET UNDER THE TONGUE EVERY 5 MINUTES NEEDED FOR CHEST PAIN. DO NOT EXCEED A TOTAL OF 3 DOSES IN 15 MINUTES. clopidogrel 75 mg tablet 75 mg PO QAM Qty: 90 3RF atorvastatin 80 mg tablet 80 mg PO DAILY Qty: 90 3RF furosemide 40 mg tablet 40 mg PO QAM Qty: 90 3RF isosorbide mononitrate 30 mg tablet extended release 24 hr 30 mg PO QAM Qty: 90 3RF lisinopril 5 mg tablet 5 mg PO BEDTIME Qty: 90 3RF metoprolol succinate 25 mg tablet extended release 24 hr 25 mg PO QAM Qty: 90 3RF buspirone 10 mg tablet See Rx Instructions .ROUTE .COMPLEX Qty: 60 11RF Dose Instruction: TAKE ONE TABLET BY MOUTH TWICE DAILY Rx Instructions: TAKE ONE TABLET BY MOUTH TWICE DAILY metformin 1,000 mg tablet 1,000 mg PO BID Qty: 180 3RF methimazole 5 mg tablet See Rx Instructions .ROUTE .COMPLEX Qty: 30 11RF Dose Instruction: TAKE ONE TABLET BY MOUTH EVERY DAY Rx Instructions: TAKE ONE TABLET BY MOUTH EVERY DAY tramadol 50 mg tablet 25 mg PO Q6H PRN (Reason: pain) Qty: 20 0RF Discharge Orders: Discharge ED (Routine); Ordered 02/05/23 Ordered By: Michele Anne Referrals: Cm Camejo NP [Primary Care Provider] - 1-3 days Discharge Diet: Advance as tolerated Discharge Activity: Resume usual activity Patient Instructions: Urinary Tract Infection in Women (ED), Back Pain (ED) Coding Level of Care Code ED Chlorination Operator for Nasir Panda
--- NOTE | 2023-02-05 20:57 | CTR_ITS ---
PROCEDURE INFORMATION: Exam: CT Abdomen And Pelvis Without Contrast Exam date and time: 02/05/2023 9:33 PM Age: 72 years old Clinical indication: Abdominal pain; Prior surgery; Surgery date: 6+ months; Surgery type: Coronary stent. Gb. Appy. Hysterectomy. Patient HX: C/O left flank pain. History of aaa. ; Additional info: L flank pain TECHNIQUE: Imaging protocol: Computed tomography of the abdomen and pelvis without contrast. Radiation optimization: All CT scans at this facility use at least one of these dose optimization techniques: automated exposure control; mA and/or kV adjustment per patient size (includes targeted exams where dose is matched to clinical indication); or iterative reconstruction. REPORTING DATA: Count of CT and Cardiac NM exams in prior 12 months: This patient has received [address] and 0 known cardiac nuclear medicine studies in the 12 months prior to the current study. COMPARISON: 1. CT abdomen pelvis w con* [id number] 10/23/2017 1:[address] angio abd aorta runof [id number] 01/05/2022 12:37 PM RADIATION DOSE METRICS: Total DLP (mGy-cm): 2269.17 FINDINGS: Limitations: Evaluation of solid organs and vasculature is limited without intravenous contrast. Tubes, catheters and devices: Surgical clips in the wall of the right abdomen anteriorly are stable. Lungs: There is linear scarring in the left lower lobe. Pleural spaces: No pleural effusion. Heart: Visualized heart is normal in size. Coronary arteries: Stable moderate atherosclerotic calcification in the visualized coronary arteries. Liver: Single calcified granuloma in the liver. Gallbladder and bile ducts: Stable findings consistent with a previous cholecystectomy. Dilatation of the biliary ducts, not unexpected in a patient who has had a prior cholecystectomy. Pancreas: The pancreas is unremarkable. No pancreatic ductal dilatation. Spleen: The spleen is unremarkable. Adrenal glands: The right adrenal gland is unremarkable. Stable low-density nodule in the left adrenal gland measuring 2.4 x 1.8 cm (series 4, image 44). Kidneys and ureters: The right kidney is unremarkable. Stable non-obstructing stone in the left kidney measuring 6.1 mm (series 4, image 77). Findings are consistent with a stable adrenal adenoma. Stomach and bowel: No acute abnormality in the small bowel. No acute abnormality in the colon. The stomach is unremarkable for the degree of distension. Appendix: Appendix not definitely visualized. No inflammatory changes in the pericecal region however. Intraperitoneal space: No free intraperitoneal air. No ascites. No loculated fluid collections to suggest an abscess. Vasculature: Stable moderate atherosclerotic calcifications in the visualized arteries. Aneurysm of the infrarenal abdominal aorta measures up to 4.9 x 4.4 cm, stable in size compared with 01/05/2022 (series 4, image 82). The aneurysm does not involve the iliac arteries. No evidence for aneurysm rupture. Lymph nodes: No lymphadenopathy. Urinary bladder: Diffuse, mild wall thickening of the bladder. Reproductive: Stable changes consistent with a previous hysterectomy. The ovaries are not definitely visualized, not an expected in a postmenopausal female. This may be due to ovarian atrophy. Alternatively, the patient may have had a previous bilateral oophorectomy. Findings are stable. Bones/joints: Degenerative changes in the spine, sacroiliac joints, and hips. Multilevel foraminal stenosis of varying severity in the visualized spine. Soft tissues: No acute abnormality in the extra-abdominal soft tissues. CT/CT kidney stone [id number] IMPRESSION: 1. Stable nonobstructing left renal stone. 2. Diffuse, mild wall thickening of the bladder. In the correct clinical setting, this may suggest cystitis. Recommend correlation with laboratory findings. Alternatively, this may be secondary to chronic outlet obstruction. 3. Aneurysm of the infrarenal abdominal aorta measures up to 4.9 x 4.4 cm, stable in size compared with 01/05/2022. The aneurysm does not involve the iliac arteries. No evidence for aneurysm rupture. 4. Incidental/nonacute findings are listed in the report.
[2023-02-05] MEDS: ondansetron 2 mg/ML SDV 2 mL 4 MG IVP (21:09)
[2023-02-05] MEDS: morphine 4 mg/mL SDV 1 mL IVP ×2 (21:09→22:00)
[2023-02-05 21:21] LABS: Basophils # 0.1 10^3/uL (0.0-0.1); Basophils % 0.7 %; Eosinophils # 0.1 10^3/uL (0.0-0.8); Eosinophils % 1.6 %; Hematocrit 46.9 % (36-47); Lymphocytes # 2.1 10^3/uL (0.8-4.8); Lymphocytes % 28.4 %; Mean Corpuscular HGB Conc 32.4 g/dL (30-55); Mean Corpuscular Hemoglobin 30.5 pg (27-33); Mean Platelet Volume 10.2 fL (7.4-10.4); Monocytes # 0.5 10^3/uL (0.2-0.9); Monocytes % 7.2 %; Neutrophils # 4.62 10^3/uL (1.8-7.7); Neutrophils % 61.8 %; Nucleated Red Blood Cells % 0 %; Platelet Count 184 10^3/cmm (157-399); Red Blood Count 4.99 10^6/uL (3.85-5.65); Red Cell Distribution Width 13.6 % (12.1-15.1); White Blood Count 7.47 10^3/uL (3.29-11.43)
[2023-02-05 21:41] LABS: Alanine Aminotransferase 18 U/L (0-33); Albumin Level 4.1 g/dL (3.5-5.2); Alkaline Phosphatase 89 U/L (35-105); Anion Gap 11.3 (5-19); Aspartate Amino Transferase 15 U/L (0-32); Blood Urea Nitrogen 8 mg/dL (8-23); Calcium 9.3 mg/dL (8.5-10.5); Carbon Dioxide 33 mmol/L (22-29); Chloride 97 mmol/L (98-107); Globulin 2.8 g/dL (1.3-4.6); Glomerular Filtration Rate 98.8 mL/min (90-130); Glucose 199 mg/dL (65-115); Osmolality Calculated 288 mOsm/kg (285-295); Potassium 4.3 mmol/L (3.5-5.1); Sodium 137 mmol/L (136-145); Total Bilirubin 0.3 mg/dL (0.15-1.2); Total Protein 6.9 g/dL (6.6-8.7)
[2023-02-05] MEDS: cefTRIAXone 1,000 MG in sodium chloride 0.9% (plus) 50 ML 100 MG IV (21:57)
== END 2023-02-05 22:53 | disposition home or self-care (01) ==
PROVIDERS: Emergency Provider Emergency Medicine; PCP Clinical Nurse Specialist Adult Health
DX: M54.50 Low back pain, unspecified (principal); N30.00 Acute cystitis without hematuria; Z79.82 Long term (current) use of aspirin; Z79.02 Long term (current) use of antithrombotics/antiplatelets; Z79.84 Long term (current) use of oral hypoglycemic drugs; N20.0 Calculus of kidney; F17.210 Nicotine dependence, cigarettes, uncomplicated; I25.10 Atherosclerotic heart disease of native coronary artery without angina pectoris; I10 Essential (primary) hypertension; E11.9 Type 2 diabetes mellitus without complications
CPT/HCPCS: 74176; 80053; 81001; 85025; 87077; 87086; 87186; 96365; 96375; 99285; J0696; J2270; J2405

== ENCOUNTER → 2023-02-13 16:43 | Outpatient (BNVA) | payer MEDICARE, MEDICAID, SELFPAY | PROVIDERS: PCP Nurse Practitioner Family; Visit Provider Nurse Practitioner Family | DX: M54.50 Low back pain, unspecified (principal); Z79.899 Other long term (current) drug therapy | CPT/HCPCS: 81000 ==

== ENCOUNTER 2023-02-15 09:07 | Outpatient (CLI) | payer MEDICARE, MEDICAID, SELFPAY ==
--- NOTE | 2023-02-15 09:13 | MM_ITS ---
WS: [id number] SCREENING DIGITAL TOMOSYNTHESIS MAMMOGRAM WITH CAD HISTORY: screening COMPARISON: 02/11/2022, 01/26/2021 Bilateral CC and MLO with tomosynthesis views submitted. Synthetic mammography reviewed. Computer aid ed detection analyzed. Breast composition: The breasts are almost entirely fatty. No suspicious masses, microcalcifications or architectural distortion. IMPRESSION: MM/[place] [id number] BI-RADS: 1-Negative FOLLOW UP: 1 Year Follow-up
== END 2023-02-15 09:08 | disposition home or self-care (01) ==
LOC: RAD 09:08
PROVIDERS: PCP Nurse Practitioner Family; Visit Provider Clinical Nurse Specialist Adult Health
DX: Z12.31 Encounter for screening mammogram for malignant neoplasm of breast (principal)
CPT/HCPCS: 77063; 77067

== ENCOUNTER → 2023-03-30 09:47 | Outpatient (BNVA) | payer MEDICARE, MEDICAID, SELFPAY | PROVIDERS: PCP Nurse Practitioner Family; Visit Provider Nurse Practitioner Family | DX: R30.0 Dysuria (principal); R53.83 Other fatigue; I10 Essential (primary) hypertension; E11.9 Type 2 diabetes mellitus without complications; N18.9 Chronic kidney disease, unspecified; N20.0 Calculus of kidney; Z79.899 Other long term (current) drug therapy | CPT/HCPCS: 74018; 80053; 80061; 81003; 82043; 82306; 82607; 83036; 84443; 85025; 87077; 87086; 87184 ==

== ENCOUNTER → 2023-04-10 10:17 | Outpatient (BNVA) | payer MEDICARE, MEDICAID, SELFPAY | PROVIDERS: PCP Nurse Practitioner Family; Visit Provider Internal Medicine Cardiovascular Disease | DX: R07.9 Chest pain, unspecified (principal); I71.43 Infrarenal abdominal aortic aneurysm, without rupture; I10 Essential (primary) hypertension; I25.10 Atherosclerotic heart disease of native coronary artery without angina pectoris; I42.9 Cardiomyopathy, unspecified; Z72.0 Tobacco use | CPT/HCPCS: 99214 ==

== ENCOUNTER 2023-06-23 09:45 | Emergency (ER) | payer OTHER, MEDICAID, SELFPAY ==
[2023-06-23 09:48] VITALS: BP 148/90; PULSE 85; RESP 20; O2SAT 99; BMI 36.6
--- NOTE | 2023-06-23 09:51 | ECG_ITS ---
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 Measurements Intervals [place] Rate: 77 P: 0 SD: 0 QRS: 69 QRSD: 113 T: -14 QT: 332 QTc: 376 Interpretive Statements SINUS RHYTHM WITH frequent blocked PACs MODERATE INTRAVENTRICULAR CONDUCTION DELAY [110+ ms QRS DURATION] NONSPECIFIC ST & T-WAVE ABNORMALITY CRITICAL TEST RESULT Compared to ECG 04/05/2022 22:15:43 Sinus bradycardia no longer present Sinus arrhythmia no longer present T-wave abnormality still present Electronically Signed On 06-23-2023 17:58:20 OPTICAL INSTRUMENTS SUPERVISOR by Hanna Ryan M.D. [email or web address]/store/[id number] f
--- NOTE | 2023-06-23 09:54 | XR_ITS ---
WS: [id number] Exam: XR chest 1V portable [id number] Date/Time of Exam: 06/23/2023 10:04 AM Reason For Exam: dyspnea/cough Comparison 04/05/2022. Lungs are clear and fully expanded. Normal cardiomediastinal silhouette. No pleural effusions. Bony s tructures are intact. IMPRESSION: 1. No acute finding.
--- NOTE | 2023-06-23 09:55 | ED_ITS ---
HPI - Chest Pain 2 General: Chief Complaint: Chest Pain Stated Complaint: Chest Pains Time Seen by Provider: 06/23/23 09:52 Source: patient Mode of arrival: ambulatory History of Present Illness: 72-year-old female presents emergency ro om complaining intermittent substernal chest pain rating to the left shoulder and left arm began this morning she did take 2 nitro with some temporary relief she has a known history of coronary artery disease some mild shortness of breath. No fever sweats chills no productive cough. She has not had any further episodes of chest discomfort she has no chest discomfort at this time. MD complaint: chest pain Pertinent past history: coronary artery disease Timing of current episode: episodic Quality: tightness and aching Relieving factors: nothing Exacerbating factors: nothing Associated symptoms: Deny abdominal pain, dyspnea, fever(s) or palpitations Review of Systems 2 Const: Denies: fever(s) or chills Card: Reports: chest pain and dyspnea on exertion; Denies: palpitations, irregular heart rhythm, edema, swelling of feet/ankles or orthopnea Resp: Denies: dyspnea GI: Denies: abdominal pain : Denies: dysuria, urinary frequency or urinary urgency Musc: Denies: neck pain or back pain Skin/Breast: Denies: rash PFSH ED 2 PFSH: Medical History Screening for breast cancer Generalized osteoarthritis Essential hypertension Coronary artery disease Type 2 diabetes mellitus without complications Encounter for long-term opiate analgesic use Abdominal aortic aneurysm Pain management contract signed Spastic dysphonia Tremor DDD (degenerative disc disease), lumbar Displacement of intervertebral disc of lumbar region Long-term use of high-risk medication Lumbar radiculitis Lumbar spine pain Neck pain Primary osteoarthritis Spondylosis Tobacco use Motivated to quit Surgical History S/P hysterectomy S/P cholecystectomy S/P appendectomy Status post coronary artery stent placement Family History Brother CAD (coronary artery disease) Hypertension Grandmother Diabetes Other Hyperlipidemia Social History Smoking and tobacco/nicotine status: current every day tobacco/nicotine user cigarettes [ Other cigarette details: 04/25 PPD] Quit status (tobacco/nicotine): not considering quitting Alcohol intake: never Substance/Drug Use: never Adopted: No Caregiver/support person: No Lives independently: Yes Household members: spouse Physical Exam 2 Const: COMMON NORMALS: no acute distress GENERAL APPEARANCE: cooperative and comfortable ORIENTATION/CONSCIOUSNESS: Yes awake, Yes oriented to person, Yes oriented to place and Yes oriented to time HENMT: COMMON NORMALS: normocephalic, atraumatic and hearing grossly normal bilaterally HEAD & SCALP: normocephalic and atraumatic Resp: COMMON NORMALS: normal respiratory effort, No retractions, No use of accessory muscles and clear to auscultation bilaterally AUSCULTATION: clear to auscultation bilaterally Cardio: COMMON NORMALS: regular rate, regular rhythm and No murmurs present (Cardio) RATE: regular rate RHYTHM: regular rhythm GI: COMMON NORMALS: Soft to palpation and No hepatosplenomegaly present A USCULTATION: Yes normoactive bowel sounds PALPATION: Yes Soft to palpation, No Tenderness to palpation present (GI), No Guarding due to palpation present (GI) and Yes No hepatosplenomegaly present Extremity: COMMON NORMALS: normal to inspection, capillary refill normal, no clubbing, cyanosis or edema, no calf tenderness and no pedal edema Neuro: SENSORIUM/ORIENTATION: Yes oriented to person, Yes oriented to place and Yes oriented to time Skin: COMMON NORMALS: no rashes or lesions noted GENERAL SKIN EXAM: no rashes or lesions noted Course 2 Vital Signs: Vital signs: Vital Signs Pulse Rate 76 06/23/23 13:54 Respiratory Rate 23 H 06/23/23 13:54 Blood Pressure 111/96 06/23/23 11:35 Pulse Oximetry 96 06/23/23 13:54 Oxygen Delivery Me thod Room Air 06/23/23 12:12 MDM - Chest Pain Medical Decision Making Chest pain this morning 7 of 10 resolved on arrival here. Patient is not had any further symptoms while here EKG does not show acute ST elevation. She is pain-free at this time. Discharge home increase furosemide mononitrate schedule outpatient stress test continue current medications.. Medical Records I reviewed the patient's medical records. Lab Data I reviewed the patient's lab results. 06/23/23 10:06 06/23/23 10:06 Laboratory Results WBC 6.35 10^3/uL (3.29-11.43) 06/23/23 10:06 RBC 5.31 10^6/uL (3.85-5.65) 06/23/23 10:06 Hgb 16.10 g/dL (11.27-16.99) 06/23/23 10:06 Hct 49.2 % (36-47) H 06/23/23 10:06 MCV 92.7 fl (85-98) 06/23/23 10:06 MCH 30.3 pg (27-33) 06/23/23 10:06 MCHC 32.7 g/dL (30-55) 06/23/23 10:06 RDW 14.5 % (12.1-15.1) 06/23/23 10:06 Plt Count 189 10^3/cmm (157-399) 06/23/23 10:06 MPV 9.7 fL (7.4-10.4) 06/23/23 10:06 Neut % (Auto) 55.6 % 06/23/23 10:06 Lymph % (Auto) 32.9 % 06/23/23 10:06 [place] % (Auto) 7.7 % 06/23/23 10:06 Eos % (Auto) 2.7 % 06/23/23 10:06 Baso % (Auto) 0.9 % 06/23/23 10:06 Neut # (Auto) 3.53 10^3/uL (1.8-7.7) 06/23/23 10:06 Lymph # (Auto) 2.1 10^3/uL (0.8-4.8) 06/23/23 10:06 Gonzales # (Auto) 0.5 10^3/uL (0.2-0.9) 06/23/23 10:06 Eos # (Auto) 0.2 10^3/uL (0.0-0.8) 06/23/23 10:06 Baso # (Auto) 0.1 10^3/uL (0.0-0.1) 06/23/23 10:06 Nucleated RBC % (auto) 0 % 06/23/23 10:06 Nucleated RBCs # 0.0 /100WBC 06/23/23 10:06 Sodium 138 mmol/L (136-145) 06/23/23 10:06 Potassium 3.9 mmol/L (3.5-5.1) 06/23/23 10:06 Chloride 97 mmol/L (98-107) L 06/23/23 10:06 Carbon Dioxide 29 mmol/L (22-29) 06/23/23 10:06 Anion Gap 15.9 (5-19) 06/23/23 10:06 BUN 9 mg/dL (8-23) 06/23/23 10:06 Creatinine 0.7 mg/dL (0.5-0.9) 06/23/23 10:06 GFR Calculation 82.7 mL/min (90-130) L 06/23/23 10:06 Glucose 187 mg/dL (65-115) H 06/23/23 10:06 Calculated Osmolality 290 mOsm/kg (285-295) 06/23/23 10:06 Calcium 9.3 mg/dL (8.5-10.5) 06/23/23 10:06 Total Bilirubin 0.3 mg/dL (0.15-1.2) 06/23/23 10:06 AST 13 U/L (0-32) 06/23/23 10:06 ALT 16 U/L (0-33) 06/23/23 10:06 Alkaline Phosphatase 80 U/L (35-105) 06/23/23 10:06 Troponin T Baseline 8 ng/L (0-10) 06/23/23 10:06 Troponin T 120 Minute 6.00 ng/L (0-10) 06/23/23 12:21 Delta Troponin T -2.00 ABS# (0-10) L 06/23/23 12:21 Total Protein 7.4 g/dL (6.6-8.7) 06/23/23 10:06 Albumin 4.2 g/dL (3.5-5.2) 06/23/23 10:06 Globulin 3.2 g/dL (1.3-4.6) 06/23/23 10:06 Urine Color Yellow (Yellow) 06/23/23 11:28 Urine Appearance Clear (CLEAR) 06/23/23 11:28 Urine pH 5 (5-7) 06/23/23 11:28 Ur Specific [place] 1.010 (1.005-1.030) 06/23/23 11:28 Urine Protein Neg (Negative) 06/23/23 11:28 Urine Glucose (UA) 4+ (Normal) H 06/23/23 11:28 Urine Ketones Negative (Negative) 06/23/23 11:28 Urine Blood Neg (Negative) 06/23/23 11:28 Urine Nitrate Negative (Negative) 06/23/23 11:28 Urine Bilirubin Neg (Negative) 06/23/23 11:28 Urine Urobilinogen Norm mg/dL (Negative) 06/23/23 11:28 Ur Leukocyte Esterase Negative (Negative) 06/23/23 11:28 All radiology interpretation(s) finalized by discharge Discharge Plan Discharge Patient Disposition: Home Clinical Impression: Chest pain Condition: Stable Prescriptions: New isosorbide mononitrate 60 mg tablet extended release 24 hr 60 mg PO DAILY Qty: 30 0RF Discontinued isosorbide mononitrate 30 mg tablet extended release 24 hr 30 mg PO QAM Qty: 90 3RF No Action aspirin 81 mg tablet,delayed release (DR/EC) 81 mg PO QAM calcium carbonate-vitamin D3 500 mg(1,250mg) -125 unit tablet 1 tab PO QAM Healthy Eyes SuperVision [phone] [id number] capsule 1 cap PO DAILY hydrocodone-acetaminophen 10-325 mg tablet 1 tab PO .5 TIMES DAILY PRN (Reason: pain) 30 Days Qty: 150 0RF (DME) blood-glucose meter Misc See Rx Instructions .MEDSUPPLY Qty: 1 0RF Rx Instructions: Use as directed for checking blood sugar (DME) Blood Glucose Test Strip See Rx Instructions .MEDSUPPLY Qty: 200 12RF Rx Instructions: Use as directed with glucometer to check blood sugar (DME) lancets Misc See Rx Instructions .MEDSUPPLY Qty: 200 12RF Rx Instructions: Use as directed to prick skin for blood sugar checks nitroglycerin 0.4 mg tablet, sublingual See Rx Instructions .ROUTE .COMPLEX Qty: 25 11RF Dose Instruction: DISSOLVE 1 TABLET UNDER THE TONGUE EVERY 5 MINUTES NEEDED FOR CHEST PAIN. DO NOT EXCEED A TOTAL OF 3 DOSES IN 15 MINUTES. Rx Instructions: DISSOLVE 1 TABLET UNDER THE TONGUE EVERY 5 MINUTES NEEDED FOR CHEST PAIN. DO NOT EXCEED A TOTAL OF 3 DOSES IN 15 MINUTES. clopidogrel 75 mg tablet 75 mg PO QAM Qty: 90 3RF atorvastatin 80 mg tablet 80 mg PO DAILY Qty: 90 3RF furosemide 40 mg tablet 40 mg PO QAM Qty: 90 3RF lisinopril 5 mg tablet 5 mg PO BEDTIME Qty: 90 3RF metoprolol succinate 25 mg tablet extended release 24 hr 25 mg PO QAM Qty: 90 3RF metformin 1,000 mg tablet 1,000 mg PO BID Qty: 180 3RF buspirone 10 mg tablet 10 mg PO BID methimazole 5 mg tablet 5 mg PO DAILY Farxiga 10 mg tablet 10 mg PO DAILY Discharge Orders: Discharge ED (Routine); Ordered 06/23/23 Ordered By: Dread Ruiz Referrals: Emely Butler, WILMER [Primary Care Provider] - Discharge Diet: Usual diet Discharge Activity: Resume usual activity Patient Instructions: Opioid Safety, Pain Management Activity Restrictions/Additional Instructions: Thank you for choosing [facility] for your healthcare needs today. Please realize this is an emergency room and that we are providing you with a medical screening exam and this may not be complete and all inclusive of all the testing and or work up that you may need to determine your ailment or severity of your illness. It is very important that you follow up as instructed or that you return to the Emergency Department should you have concerns or if your condition changes or worsens in any way. You are seen due to the complaint of chest pain. Recommend you increase your steroid mononitrate to 60 mg daily. Case management will make arrangements for an outpatient Lexiscan sestamibi stress test and follow-up with cardiology. Coding Level of Care Code ED Coil Rewind Machine Operator for Nasir Panda
[2023-06-23] MEDS: aspirin 81 mg Chew Tablet 324 MG PO (09:58)
[2023-06-23 10:02] VITALS: PULSE 85; RESP 19; O2SAT 95
[2023-06-23 10:15] LABS: Basophils # 0.1 10^3/uL (0.0-0.1); Basophils % 0.9 %; Eosinophils # 0.2 10^3/uL (0.0-0.8); Eosinophils % 2.7 %; Hematocrit 49.2 % (36-47); Lymphocytes # 2.1 10^3/uL (0.8-4.8); Lymphocytes % 32.9 %; Mean Corpuscular HGB Conc 32.7 g/dL (30-55); Mean Corpuscular Hemoglobin 30.3 pg (27-33); Mean Corpuscular Volume 92.7 fl (85-98); Mean Platelet Volume 9.7 fL (7.4-10.4); Monocytes # 0.5 10^3/uL (0.2-0.9); Monocytes % 7.7 %; Neutrophils # 3.53 10^3/uL (1.8-7.7); Neutrophils % 55.6 %; Nucleated Red Blood Cells % 0 %; Platelet Count 189 10^3/cmm (157-399); Red Blood Count 5.31 10^6/uL (3.85-5.65); Red Cell Distribution Width 14.5 % (12.1-15.1); White Blood Count 6.35 10^3/uL (3.29-11.43)
[2023-06-23 10:45] LABS: Troponin(5th) Baseline 8 ng/L (0-10)
[2023-06-23 10:47] LABS: Alanine Aminotransferase 16 U/L (0-33); Albumin Level 4.2 g/dL (3.5-5.2); Alkaline Phosphatase 80 U/L (35-105); Anion Gap 15.9 (5-19); Aspartate Amino Transferase 13 U/L (0-32); Blood Urea Nitrogen 9 mg/dL (8-23); Calcium 9.3 mg/dL (8.5-10.5); Carbon Dioxide 29 mmol/L (22-29); Chloride 97 mmol/L (98-107); Creatinine Clr Calc Pharmacy 79.2982; Globulin 3.2 g/dL (1.3-4.6); Glomerular Filtration Rate 82.7 mL/min (90-130); Glucose 187 mg/dL (65-115); Osmolality Calculated 290 mOsm/kg (285-295); Potassium 3.9 mmol/L (3.5-5.1); Sodium 138 mmol/L (136-145); Total Bilirubin 0.3 mg/dL (0.15-1.2); Total Protein 7.4 g/dL (6.6-8.7)
[2023-06-23 11:35] VITALS: BP 111/96; PULSE 90; RESP 24; O2SAT 98
[2023-06-23 11:38] LABS: Add Urine Microscopic? NO; Charge for UA Resulting for Rev
[2023-06-23 11:41] LABS: Bilirubin Urine Neg (Negative); Blood Urine Neg (Negative); Glucose Urine UA 4+ (Normal); Ketones Urine Negative (Negative); Leukocyte Esterase Urine Negative (Negative); Nitrate Urine Negative (Negative); Protein Urine Neg (Negative); Urine Appearance Clear (CLEAR); Urine Color Yellow (Yellow); Urobilinogen Urine Norm (Negative); pH Urine 5 (5-7)
--- NOTE | 2023-06-23 11:53 | ECG_ITS ---
[facility] Test Date: 2023-06-23 Pat Name: Falguni Bond Department: Room: Gender: Female Pricing Intern: : 1950 Requested By: Dread Cope Order Number: [id number] Reading MD: Hanna Ryan M.D. Measurements Intervals [place] Rate: 63 P: 71 ME: 177 QRS: 61 QRSD: 125 T: 29 QT: 420 QTc: 433 Interpretive Statements SINUS RHYTHM WITH MARKED SINUS ARRHYTHMIA POSSIBLE LATERAL MYOCARDIAL INFARCTION , OF INDETERMINATE AGE [30 ms Q WAVE IN I/aVL/V5/V6] POSSIBLE INFERIOR MYOCARDIAL INFARCTION , PROBABLY OLD [30 ms Q WAVE IN II/aVF] Compared to ECG 06/23/2023 09:51:03 Myocardial infarct finding now present Intraventricular conduction delay no longer present T-wave abnormality no longer present Electronically Signed On 06-23-2023 18:03:48 DESIGN PRINTER BALLOON by Hanna Ryan M.D. [email or web address] haven [email or web address]/[id number]
[2023-06-23 12:12] VITALS: PULSE 76; RESP 23; O2SAT 96
[2023-06-23 13:54] VITALS: PULSE 76; RESP 23; O2SAT 96
--- NOTE | 2023-06-28 08:52 | DCPLANNER ---
Out patient order sent to centralized scheduling for scheduling and authorization.
== END 2023-06-23 13:58 | disposition home or self-care (01) ==
PROVIDERS: Emergency Provider Family Medicine; PCP Nurse Practitioner Family
DX: R07.9 Chest pain, unspecified (principal); Z79.02 Long term (current) use of antithrombotics/antiplatelets; Z79.82 Long term (current) use of aspirin; Z79.84 Long term (current) use of oral hypoglycemic drugs; F17.210 Nicotine dependence, cigarettes, uncomplicated; I25.10 Atherosclerotic heart disease of native coronary artery without angina pectoris; I10 Essential (primary) hypertension; E11.9 Type 2 diabetes mellitus without complications
CPT/HCPCS: 36415; 71045; 80053; 81003; 84484; 85025; 93005; 99285

== ENCOUNTER → 2023-06-29 08:10 | Outpatient (BNVA) | payer OTHER, MEDICAID, SELFPAY | PROVIDERS: PCP Nurse Practitioner Family; Visit Provider Nurse Practitioner Family | DX: E11.9 Type 2 diabetes mellitus without complications (principal) | CPT/HCPCS: 80061; 82607; 83036 ==

== ENCOUNTER 2023-07-06 09:43 | Outpatient (CLI) | payer OTHER, MEDICAID, SELFPAY ==
[2023-07-06 09:56] VITALS: BMI 36.6
--- NOTE | 2023-07-06 09:59 | ECG_ITS ---
[facility] Test Date: 2023-07-06 Pat Name: Falguni Bond Department: Room: Gender: Female Food Operations Manager: : 1950 Requested By: Dread Cope Order Number: [id number] Jorge MD: Glenroy Enriquez M.D. Interpretive Statements NAME OF STUDY: LEXISCAN SESTAMIBI STRESS TEST INDICATION: [Chest Pain] Procedure: At the baseline, the blood pressure was 138/68 mmHg with a heart rate of 75 bpm. The electrocardiogram showed normal sinus rhythm, normal axis with normal ST and T's. The Lexiscan was infused over a period of 20 seconds. A total of 0.4 mg of Lexiscan was infused. The stress phase was continued for a total of 5 minutes. Heart rate was at the end of stress phase was 98 bpm and a blood pressure of 120/57 mmHg. The EKG at the peak infusion revealed normal sinus rhythm with no significant ST-T wave changes. Sestamibi was injected 20 seconds after the Lexiscan infusion. Blood pressure at the end of recovery phase was 120/66 mmHg with a heart rate of 94bpm. Conclusion: 1. Normal EKG response to Lexiscan infusion 2. No Lexiscan induced chest pain or cardiac arrhythmia. 3. Normal blood pressure and heart rate response. 4. Sestamibi/sestamibi perfusion scan pending; see separate report. Electronically Signed On 07-24-2023 11:44:57 CDT by Glenroy Enriquez M.D. [id number]
--- NOTE | 2023-07-06 10:00 | NMCV_ITS ---
NM crispin perf SPECT r/s* [id number] Falguni Bond Age: 72 Gender: F : 1950 Exam Date: 07/06/2023 10:59 Ordering Phys: Dread Ruiz DO Technologist: MINO Juárez Exam Location: [facility] Indications: CHEST PAIN STRESS TEST Please see separate stress test report in [facility] for full findings IMAGE PROTOCOL Rest/Stress 1 Lexiscan Day Radiopharmaceutical Dose (mCi) Administration Site Administered by Rest: Tc-99m 10.8 IV MINO Pillai Sestamibi Stress:Tc-99m 32.6 IV MINO Pillai Sestamibi Rest: 06-Jul-2023 60 Discovery 630 Stress: 06-Jul-2023 30 Discovery 630 0.4mg Lexiscan. Supine position only as patient was unable to lay prone. SPECT RESULTS Technical Quality: Excellent Raw Data Analysis: Normal Image Corrections: No attenuation or motion correction applied Summed Stress Score: 13 Summed Rest Score: 10 Summed Difference Score: 3 PERFUSION FINDINGS There is a large in size, severe intensity, fixed perfusion defect noted in inferior wall. This is consistent with large sized area of prior infarct in the RCA territory. Small sized area of medium intensity, reversible perfusion defect is seen in apical wall. This is consistent with small area of ischemia in LAD territory. Medium sized area of mostly fixed perfusion defect seen in inferolateral wall. This is consistent with medium sized area of prior infarct with minimal shabbir- infarct ischemia in left circumflex artery territory. FUNCTIONAL RESULTS (calculated via Gated SPECT) Stress Image LV EF (%): 42 Stress EDV (mL):132 TID: 0.92 Stress ESV (mL):76 FUNCTIONAL FINDINGS: LV systolic function is mildly reduced with EF of 42% IMPRESSIONS 1. Abnormal myocardial perfusion imaging with large sized area of prior infarct in RCA territory. 2. Small area of ischemia is noted in the LAD territory. 3. Medium sized area of prior infarct with minimal shabbir-infarct ischemia noted in the left circumflex artery territory. 4. LV systolic function is mildly reduced with EF of 42% Glenroy Enriquez MD (Electronically Signed) Final Date: 10 July 2023 11:30 S
[2023-07-06] MEDS: regadenoson 0.4 Mg/5 ml Syringe 0.400000000000000022 MG IVP (11:45)
[2023-07-06 12:20] VITALS: BP 145/68; PULSE 72
== END 2023-07-06 09:44 | disposition home or self-care (01) ==
PROVIDERS: PCP Nurse Practitioner Family; Visit Provider Family Medicine
DX: R07.9 Chest pain, unspecified (principal); I25.2 Old myocardial infarction
CPT/HCPCS: 36415; 78452; 80061; 82607; 83036; 93017; 96374; A9500; J2785

== ENCOUNTER → 2023-08-08 09:42 | Outpatient (BNVA) | payer MEDICAID, SELFPAY | PROVIDERS: PCP Nurse Practitioner Family; Visit Provider Nurse Practitioner Family | DX: E53.8 Deficiency of other specified B group vitamins (principal); N39.0 Urinary tract infection, site not specified | CPT/HCPCS: 81003; 82607; 82746 ==

== ENCOUNTER → 2023-09-12 15:46 | Outpatient (BNVA) | payer MEDICAID, SELFPAY | PROVIDERS: PCP Nurse Practitioner Family; Visit Provider Family Medicine | DX: M10.9 Gout, unspecified (principal) | CPT/HCPCS: 84550 ==

== ENCOUNTER → 2023-09-20 16:10 | Outpatient (BNVA) | payer MEDICAID, SELFPAY | PROVIDERS: PCP Nurse Practitioner Family; Visit Provider Nurse Practitioner Family | DX: M25.50 Pain in unspecified joint (principal) | CPT/HCPCS: 80053; 82607; 83735; 84550; 85025; 85651; 86038; 86140; 86200; 86431 ==

== ENCOUNTER → 2023-09-25 14:12 | Outpatient (BNVA) | payer MEDICARE, MEDICAID, SELFPAY | PROVIDERS: PCP Nurse Practitioner Family; Visit Provider Internal Medicine | DX: R07.9 Chest pain, unspecified (principal); I10 Essential (primary) hypertension; I25.10 Atherosclerotic heart disease of native coronary artery without angina pectoris; I42.9 Cardiomyopathy, unspecified; Z72.0 Tobacco use | CPT/HCPCS: 99214 ==

== ENCOUNTER 2023-10-16 08:46 | Outpatient (CLI) | payer MEDICARE, MEDICAID, SELFPAY ==
--- NOTE | 2023-10-16 09:00 | CTR_ITS ---
PROCEDURE INFORMATION: Exam: CTA Abdomen and Pelvis With Contrast Exam date and time: 10/16/2023 9:02 AM Age: 73 years old Clinical indication: Condition or disease; Other: Aaa; Arterial aneurysm; Without rupture; Abdominal; Prior surgery; Surgery date: 6+ months; Surgery type: Hyst, appy; Additional info: Reassess abdominal aortic aneurysm TECHNIQUE: Imaging protocol: Computed tomographic angiography of the abdomen and pelvis with contrast. Exam focused on the arteries. 3D rendering (Not supervised by radiologist): MIP and/or 3D reconstructed images were created by the technologist. Radiation optimization: All CT scans at this facility use at least one of these dose optimization techniques: automated exposure control; mA and/or kV adjustment per patient size (includes targeted exams where dose is matched to clinical indication); or iterative reconstruction. Contrast material: OMNI 350; Contrast volume: 100 ml; Contrast route: INTRAVENOUS (IV); COMPARISON: CT ang ches abdpel [id number] 03/07/2017 2:25 AM RADIATION DOSE METRICS: Total DLP (mGy-cm): 761.38 FINDINGS: Tubes, catheters and devices: Surgical clips in the right abdomen. Aorta: Infrarenal abdominal aortic aneurysm measuring 4.9 x 4.3 cm with mural thrombus. Celiac trunk and mesenteric arteries: No occlusion or significant stenosis. Renal arteries: No occlusion or significant stenosis. Right iliac arteries: No occlusion or significant stenosis. Left iliac arteries: No occlusion or significant stenosis. Liver: No mass. Gallbladder and biliary ducts: Unremarkable. No calcified stones. No ductal dilation. Pancreas: Unremarkable. No mass. No ductal dilation. Spleen: Unremarkable. No splenomegaly. Adrenal glands: Stable size of 2 cm left adrenal, compatible with benign adenoma and requiring no further follow-up. Kidneys and ureters: Unremarkable. No solid mass. No hydronephrosis. Stomach and bowel: Unremarkable. No obstruction. No mucosal thickening. Appendix: No evidence of appendicitis. Intraperitoneal space: Unremarkable. No free air. No significant fluid collection. Lymph nodes: Unremarkable. No enlarged lymph nodes. Status post appendectomy. Urinary bladder: Unremarkable. No mass. Reproductive: Unremarkable as visualized. Bones/joints: No acute fracture. Soft tissues: Unremarkable. CT/CT angio abdomen pelvis [id number] IMPRESSION: Infrarenal abdominal aortic aneurysm measuring 4.9 x 4.3 cm.
[2023-10-16] MEDS: iohexol 350 mg/mL 500 mL Btl (per mL) IV (09:11)
== END 2023-10-16 08:47 | disposition home or self-care (01) ==
LOC: RAD 08:47
PROVIDERS: PCP Nurse Practitioner Family; Visit Provider Internal Medicine
DX: I71.40 Abdominal aortic aneurysm, without rupture, unspecified (principal); Z98.890 Other specified postprocedural states
CPT/HCPCS: 74174; Q9967

== ENCOUNTER 2023-10-18 00:34 | Emergency (ER) | payer MEDICARE, MEDICAID, SELFPAY ==
[2023-10-18 00:36] VITALS: BP 143/73; PULSE 80; RESP 18; TEMP 36.6; O2SAT 93; BMI 35.8
--- NOTE | 2023-10-18 01:12 | W.ED.EXTPRO ---
HPI - Extremity Problem General: Chief complaint: Extremity Injury, Upper Stated complaint: Left wrist/hand swelling/Bruised Time Seen by Provider: 10/18/23 00:50 History of Present Illness: Patient presents to the ER with complaints of swelling to her left forearm region. Patient said her cat jumped on her arm and landed. There is no deformity no crepitus but there is a very large hematoma. Patient is on blood thinners. Plavix. Patient has good range of motion and is neurovascularly intact. Review of Systems General: Reports: 10 or more systems reviewed and unremarkable except in HPI and below PFSH ED PFSH: Medical History Screening for breast cancer Generalized osteoarthritis Essential hypertension Coronary artery disease Type 2 diabetes mellitus without complications Encounter for long-term opiate analgesic use Abdominal aortic aneurysm Pain management contract signed Spastic dysphonia Tremor DDD (degenerative disc disease), lumbar Displacement of intervertebral disc of lumbar region Long-term use of high-risk medication Lumbar radiculitis Lumbar spine pain Neck pain Primary osteoarthritis Spondylosis Tobacco use Motivated to quit Surgical History S/P hysterectomy S/P cholecystectomy S/P appendectomy Status post coronary artery stent placement Family History Brother CAD (coronary artery disease) Hypertension Grandmother Diabetes Other Hyperlipidemia Social History Smoking and tobacco/nicotine status: current every day tobacco/nicotine user cigarettes [ Other cigarette details: /2 PPD] Quit status (tobacco/nicotine): not considering quitting Alcohol intake: never Substance/Drug Use: never Adopted: No Caregiver/support person: No Lives independently: Yes Household members: spouse Physical Exam Const: COMMON NORMALS: no acute distress, average body habitus, patient oriented x3, no limitations, healthy appearing, alert and well nourished HENMT: COMMON NORMALS: normocephalic, atraumatic, hearing grossly normal bilaterally, external ears normal, Normal external nose present and moist oral mucous membranes HEAD & SCALP: normocephalic and atraumatic NOSE: Normal external nose present EXTERNAL EAR: Yes external ears normal Neck/C-Spine: COMMON NORMALS: no JVD Chest: COMMONS NORMALS: normal inspection of the chest and normal palpation of entire chest wall Resp: COMMON NORMALS: normal respiratory effort, No retractions, No use of accessory muscles and clear to auscultation bilaterally AUSCULTATION: clear to auscultation bilaterally Cardio: COMMON NORMALS: no JVD, regular rate, regular rhythm, S1 normal heart sound present, S2 normal heart sound present, No gallops present (Cardio), No clicks present (Cardio), No murmurs present (Cardio) and No rub (Cardio) RATE: regular rate RHYTHM: regular rhythm HEART SOUNDS: S1 normal heart sound present and S2 normal heart sound present GI: COMMON NORMALS: Normal to inspection, nondistended, normoactive bowel sounds present, Soft to palpation, non-tender, No hepatosplenomegaly present and no masses PALPATION: Yes Soft to palpation and Yes No hepatosplenomegaly present Extremity: NARRATIVE EXTREMITY EXAM: Large hematoma proximal to left wrist and joint does not cross joint line is on the dorsal aspect of the forearm. Patient is neurovascularly intact distal to this hematoma. Neuro: COMMON NORMALS: patient oriented x3 SENSORIUM/ORIENTATION: Yes alert Course Vital Signs: Vital signs: Vital Signs Temperature 97.9 F 10/18/23 00:36 Pulse Rate 80 10/18/23 00:36 Respiratory Rate 18 10/18/23 00:36 Blood Pressure 143/73 10/18/23 00:36 Pulse Oximetry 93 10/18/23 00:36 Oxygen Delivery Me thod Room Air 10/18/23 00:36 MDM - Extremity (Nontraumatic) Medical Decision Making Patient has a large hematoma secondary to her cat jumping on her arm. There is no obvious deformity crepitus. Patient is on a blood thinner. Patient be discharged home to follow-up with her PCP on an as-needed basis. Differential Diagnosis Unlikely herpes zoster, gout, cellulitis, superficial thrombophlebitis, deep venous thrombosis of upper extremity, lower extremity edema or deep vein thrombosis of lower extremity Medical Records I reviewed the patient's medical records. Lab Data I reviewed the patient's lab results. No radiology studies performed this visit Discharge Plan Discharge Patient Disposition: Home Clinical Impression: Hematoma Condition: Stable Prescriptions: No Action aspirin 81 mg tablet,delayed release (DR/EC) 81 mg PO QAM calcium carbonate-vitamin D3 500 mg(1,250mg) -125 unit tablet 1 tab PO QAM Healthy Eyes SuperVision [id number] ymxy-gh-[id number] capsule 1 cap PO DAILY hydrocodone-acetaminophen 10-325 mg tablet 1 tab PO .5 TIMES DAILY PRN (Reason: pain) 30 Days Qty: 150 0RF allopurinol 100 mg tablet 100 mg PO DAILY Qty: 30 3RF (DME) blood-glucose meter [facility] Rx Instructions .MEDSUPPLY Qty: 1 0RF Rx Instructions: Use as directed for checking blood sugar (DME) Blood Glucose Test Strip See Rx Instructions .MEDSUPPLY Qty: 200 12RF Rx Instructions: Use as directed with glucometer to check blood sugar (DME) lancets [facility] Rx Instructions .MEDSUPPLY Qty: 200 12RF Rx Instructions: Use as directed to prick skin for blood sugar checks cyanocobalamin (vitamin B-12) 2,500 mcg tablet 2,500 mcg PO DAILY nitroglycerin 0.4 mg tablet, sublingual See Rx Instructions .ROUTE .COMPLEX Qty: 25 11RF Dose Instruction: DISSOLVE 1 TABLET UNDER THE TONGUE EVERY 5 MINUTES NEEDED FOR CHEST PAIN. DO NOT EXCEED A TOTAL OF 3 DOSES IN 15 MINUTES. Rx Instructions: DISSOLVE 1 TABLET UNDER THE TONGUE EVERY 5 MINUTES NEEDED FOR CHEST PAIN. DO NOT EXCEED A TOTAL OF 3 DOSES IN 15 MINUTES. clopidogrel 75 mg tablet 75 mg PO QAM Qty: 90 3RF atorvastatin 80 mg tablet 80 mg PO DAILY Qty: 90 3RF lisinopril 5 mg tablet 5 mg PO BEDTIME Qty: 90 3RF metoprolol succinate 25 mg tablet extended release 24 hr 25 mg PO QAM Qty: 90 3RF metformin 1,000 mg tablet 1,000 mg PO BID Qty: 180 3RF furosemide 40 mg tablet See Rx Instructions .ROUTE .COMPLEX Qty: 90 3RF Dose Instruction: Take 1 tablet by mouth daily Rx Instructions: Take 1 tablet by mouth daily Farxiga 10 mg tablet See Rx Instructions .ROUTE .COMPLEX Qty: 30 5RF Dose Instruction: TAKE ONE TABLET BY MOUTH DAILY Rx Instructions: TAKE ONE TABLET BY MOUTH DAILY isosorbide mononitrate 60 mg tablet extended release 24 hr See Rx Instructions .ROUTE .COMPLEX Qty: 30 5RF Dose Instruction: TAKE ONE TABLET BY MOUTH DAILY Rx Instructions: TAKE ONE TABLET BY MOUTH DAILY fluconazole [Diflucan] 100 mg tablet 100 mg PO DAILY Qty: 7 0RF buspirone 10 mg tablet 10 mg PO BID methimazole 5 mg tablet 5 mg PO DAILY Discharge Orders: Discharge ED (Routine); Ordered 10/18/23 Ordered By: Rolan Ruiz Referrals: Emely Butler FNP [Primary Care Provider] - 1 week Patient Instructions: Hematoma (ED) Activity Restrictions/Additional Instructions: You have a large hematoma on your left forearm from her cat landed on you. This is a collection of blood. Your body will have to reabsorb this, due to its size and will take a while for this to happen. Please follow-up with your family practitioner for further evaluation and treatment. 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
[2023-10-18 01:38] VITALS: BP 113/75; PULSE 71; O2SAT 94
[2023-10-18 01:42] VITALS: BP 113/75; PULSE 71; O2SAT 94
== END 2023-10-18 01:42 | disposition home or self-care (01) ==
PROVIDERS: Emergency Provider Emergency Medicine; PCP Nurse Practitioner Family
DX: S60.212A Contusion of left wrist, initial encounter (principal); Z79.82 Long term (current) use of aspirin; Z79.02 Long term (current) use of antithrombotics/antiplatelets; Z79.84 Long term (current) use of oral hypoglycemic drugs; F17.210 Nicotine dependence, cigarettes, uncomplicated; I10 Essential (primary) hypertension; I25.10 Atherosclerotic heart disease of native coronary artery without angina pectoris; E11.9 Type 2 diabetes mellitus without complications; W55.09XA Other contact with cat, initial encounter
CPT/HCPCS: 99281

== ENCOUNTER 2023-11-17 11:53 | Outpatient (CLI) | payer MEDICARE, MEDICAID, SELFPAY ==
--- NOTE | 2023-11-17 12:30 | US_ITS ---
WS: [id number] ULTRASOUND SOFT TISSUES LEFT wrist HISTORY: S60.212A - Contusion of left wrist, initial encounter COMPARISON: None available. TECHNIQUE: 2-D and color Doppler imaging is submitted. Ultrasound is directed over the anterior medial LEFT wrist at the palpable abnormality. As per histor y this is the site of a prior injury from a cat scratch. Complex collection along the anterior medial wrist measures 2.0 x 1.0 x 1.9 cm. There is mild periphe ral vascularity. There are low-level echoes and thick walled. Due to the appearance and history this is probably a treated or resolving abscess or hematoma. US/US soft tissue/extremity [id number] IMPRESSION: Complex thick-walled collection measuring 2.0 x 1.0 x 1.9 cm along the anterior medial LEFT wrist. If this is associated with the recent trauma this is probab ly a resolving hematoma or abscess. If this was present before the trauma this is probably a ganglion or synovial cyst.
== END 2023-11-17 11:54 | disposition home or self-care (01) ==
LOC: RAD 11:53
PROVIDERS: PCP Nurse Practitioner Family; Visit Provider Nurse Practitioner Family
DX: S60.212A Contusion of left wrist, initial encounter (principal)
CPT/HCPCS: 76882

== ENCOUNTER → 2023-12-05 08:37 | Outpatient (BNVA) | payer MEDICARE, MEDICAID, SELFPAY | PROVIDERS: PCP Nurse Practitioner Family; Visit Provider Nurse Practitioner | DX: M25.532 Pain in left wrist (principal); S60.212A Contusion of left wrist, initial encounter; W55.82XA Struck by other mammals, initial encounter | CPT/HCPCS: 73110; 99204 ==

== ENCOUNTER → 2024-01-23 09:09 | Outpatient (BNVA) | payer MEDICARE, MEDICAID, SELFPAY | PROVIDERS: PCP Nurse Practitioner Family; Visit Provider Nurse Practitioner Family | DX: E11.65 Type 2 diabetes mellitus with hyperglycemia; M10.9 Gout, unspecified | CPT/HCPCS: 80053; 80061; 82607; 83036; 84443; 84550; 85025 ==

== ENCOUNTER 2024-02-02 08:27 | Outpatient (CLI) | payer MEDICARE, MEDICAID, SELFPAY ==
--- NOTE | 2024-02-02 09:00 | CT_ITS ---
WS: [id number] LDCT LUNG CANCER SCREENING TECHNIQUE: Noncontrast CT of the chest with coronal and sagittal reformatted images. CLINICAL INFORMATION: F17.210 - Nicotine dependence, cigarettes, uncomplicated COMPARISON: CT chest 2010 DLP: 91.00 mGy.cm DIvol: Mean CTDIvol: 2.20 (mGy) All CT scans at [facility] use at least one of these dose optimization techniques: automat ed exposure control; mA and/or kV adjustment per patient size (includes targeted exams where dose is matched to clinical indication); or iterative reconstruction. FINDINGS: Lungs are well aerated. No suspicious pulmonary parenchymal opacities. Slight subsegmental atelectasis LEFT lower lobe. Aortic calcification. Coronary calcification. No mediastinal or hilar lymphadenopathy. No axillary ly mphadenopathy. Mild thoracic curve. Mild thoracic kyphosis. Anterior hypertrophic changes thoracic sp ine. LEFT adrenal adenoma measuring 1.[address]/CT lung screening [id number] IMPRESSION: LUNG-RADS: 1-Negative FOLLOW UP: 12 Month: Continue annual screening with LDCT
== END 2024-02-02 08:28 | disposition home or self-care (01) ==
LOC: RAD 08:28
PROVIDERS: PCP Nurse Practitioner Family; Visit Provider Nurse Practitioner Family
DX: Z12.2 Encounter for screening for malignant neoplasm of respiratory organs (principal); F17.210 Nicotine dependence, cigarettes, uncomplicated; I70.0 Atherosclerosis of aorta; I25.84 Coronary atherosclerosis due to calcified coronary lesion; D35.02 Benign neoplasm of left adrenal gland
CPT/HCPCS: 71271

== ENCOUNTER 2024-04-08 12:29 | Outpatient (CLI) | payer MEDICARE, MEDICAID, SELFPAY ==
--- NOTE | 2024-04-08 12:40 | MM_ITS ---
WS: [id number] BILATERAL 3D TOMOSYNTHESIS DIGITAL SCREENING MAMMOGRAM WITH CAD CLINICAL INFORMATION: Z12.39 - Encounter for other screening for malignant neop... HISTORY: Screening mammogram. No current complaints. COMPARISON: 2022 TECHNIQUE: Bilateral CC and MLO views. FINDINGS: Fatty-replaced breasts bilaterally. No suspicious focal mass, asymmetry, calcifications, or landscape architect and planner ural distortion. No evidence of malignancy. Punctate and lucent centered calcifications MM/MM scr tomosynthesis [id number] IMPRESSION: DENSITY: The breasts are almost entirely fatty. BI-RADS: 1 - Negative. FOLLOW UP: 1 Year Follow-up Recommend return to annual screening mammography.
== END 2024-04-08 12:30 | disposition home or self-care (01) ==
PROVIDERS: PCP Nurse Practitioner Family; Visit Provider Nurse Practitioner Family
DX: Z12.31 Encounter for screening mammogram for malignant neoplasm of breast (principal); R92.313 Mammographic fatty tissue density, bilateral breasts; R92.1 Mammographic calcification found on diagnostic imaging of breast
CPT/HCPCS: 77063; 77067

== ENCOUNTER 2024-04-20 02:05 | Emergency (ER) | payer MEDICARE, MEDICAID, SELFPAY ==
[2024-04-20 02:06] VITALS: BP 150/77; PULSE 60; RESP 18; TEMP 36.9; O2SAT 96; BMI 35.6
--- NOTE | 2024-04-20 02:06 | XRR_ITS ---
PROCEDURE INFORMATION: Exam: XR Chest Exam date and time: 04/20/2024 3:27 AM Age: 73 years old Clinical indication: Chest pressure; Prior surgery; Surgery date: 6+ months; Surgery type: Coronary stents; Patient HX: C/O chest pain TECHNIQUE: Imaging protocol: Radiologic exam of the chest. Views: 1 view. COMPARISON: CT lung screening [id number] 02/02/2024 8:44 AM FINDINGS: Lungs: Unremarkable. No consolidation. Pleural spaces: Unremarkable. No pleural effusion. No pneumothorax. Heart/Mediastinum: Unremarkable. No cardiomegaly. Bones/joints: Unremarkable. XR/XR chest 1V portable [id number] IMPRESSION: No acute findings.
--- NOTE | 2024-04-20 02:06 | ECG_ITS ---
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 Measurements Intervals [place] Rate: 57 P: 44 WA: 168 QRS: 44 QRSD: 125 T: -5 QT: 407 QTc: 399 Interpretive Statements SINUS BRADYCARDIA INFERIOR MYOCARDIAL INFARCTION , PROBABLY OLD [40+ ms Q WAVE AND/OR ST/T ABNORMALITY IN II/aVF] Compared to ECG 06/23/2023 12:15:52 Sinus rhythm no longer present Sinus arrhythmia no longer present Myocardial infarct finding still present Electronically Signed On 04-21-2024 20:08:57 DEHORNER by Glenroy Enriquez M.D. [id number]
[2024-04-20 02:24] LABS: Basophils % 0.6 %; Eosinophils # 0.2 10^3/uL (0.0-0.8); Eosinophils % 2.3 %; Hematocrit 43.9 % (36-47); Lymphocytes # 2.7 10^3/uL (0.8-4.8); Lymphocytes % 41.7 %; Mean Corpuscular HGB Conc 32.8 g/dL (30-55); Mean Corpuscular Hemoglobin 30.6 pg (27-33); Mean Corpuscular Volume 93.2 fl (85-98); Monocytes # 0.6 10^3/uL (0.2-0.9); Monocytes % 8.9 %; Neutrophils # 2.97 10^3/uL (1.8-7.7); Neutrophils % 46.3 %; Nucleated Red Blood Cells % 0 %; Platelet Count 153 10^3/cmm (157-399); Red Blood Count 4.71 10^6/uL (3.85-5.65); Red Cell Distribution Width 13.8 % (12.1-15.1); White Blood Count 6.41 10^3/uL (3.29-11.43)
--- NOTE | 2024-04-20 02:30 | ED_ITS ---
HPI - Chest Pain 2 General: Chief Complaint: Chest Pain Stated Complaint: CP Time Seen by Provider: 04/20/24 02:26 History of Present Illness: Patient presents to the ER by EMS with nonradiating substernal chest pain that started around 2345. Patient took 1 nitro at home with some relief en route she was given 324 mg of aspirin and 2 nitro by EMS and she is now pain-free. Patient had 2 stents placed many years ago in [place]. Patient has a AAA that is being followed. Related Data Home Medications Medication Instructions Recorded Confirmed aspirin 81 mg tablet,delayed 81 mg PO QAM 04/19/19 03/14/24 release calcium 500 mg (as 1 tab PO QAM 04/19/19 03/14/24 carbonate)-vitamin D3 3.125 mcg (125 unit) tablet vitamins A,C,O-zuqp-goubii 4,296 1 cap PO DAILY 04/19/19 03/14/24 mcg-226 mg-90 mg capsule (Healthy Eyes SuperVision) cyanocobalamin (vitamin B-12) 2,500 mcg PO DAILY 09/25/23 03/14/24 2,500 mcg tablet Previous Rx's Medication Instructions Recorded nitroglycerin 0.4 mg sublingual See Rx Instructions .Route 11/18/22 tablet .COMPLEX #25 tabs blood sugar diagnostic (Blood #200 ea 03/30/23 Glucose Test strips) blood-glucose meter #1 ea 03/30/23 lancets #200 ea 03/30/23 atorvastatin 80 mg tablet 80 mg PO DAILY #90 tabs 10/20/23 clopidogrel 75 mg tablet 75 mg PO QAM #90 tabs 10/20/23 furosemide 40 mg tablet See Rx Instructions .Route 10/20/23 .COMPLEX #90 tabs lisinopril 5 mg tablet 5 mg PO BEDTIME #90 tabs 10/20/23 metoprolol succinate 25 mg 25 mg PO QAM #90 tabs 10/20/23 tablet,extended release 24 hr methimazole 5 mg tablet See Rx Instructions .Route 01/15/24 .COMPLEX #30 tabs allopurinol 100 mg tablet 100 mg PO DAILY #30 tabs 01/23/24 buspirone 10 mg tablet 10 mg PO BID #60 tabs 01/23/24 dapagliflozin propanediol 10 mg See Rx Instructions .Route 01/23/24 tablet (Farxiga) .COMPLEX #30 tabs isosorbide mononitrate 60 mg See Rx Instructions .Route 01/23/24 tablet,extended release 24 hr .COMPLEX #30 tabs metformin 1,000 mg tablet 1,000 mg PO BID #180 tabs 01/23/24 nicotine See Rx Instructions transdermal 01/23/24 21mg/24hr-14mg/24hr-7mg/24hr daily .COMPLEX #56 patches transderm patches,sequentl Allergies Allergy/AdvReac Type Severity Reaction Status Date / Time ciprofloxacin [From Cipro] Allergy ALGY-Swell Verified 04/20/24 02:15 Lip/Tongue/Throat codeine Allergy CONVULSIONS Verified 04/20/24 02:15 Penicillins Allergy CONVULSIONS Verified 04/20/24 02:15 neomycin AdvReac Unknown Verified 04/20/24 02:15 zonisamide [From Zonegran] AdvReac FEELS WEIRD Verified 04/20/24 02:15 Review of Systems 2 General: Reports: 10 or more systems reviewed and unremarkable except in HPI and below PFSH ED 2 PFSH: Medical History Traumatic hematoma of left wrist Acute pain of left wrist Screening for breast cancer Generalized osteoarthritis Essential hypertension Coronary artery disease Type 2 diabetes mellitus without complications Encounter for long-term opiate analgesic use Abdominal aortic aneurysm Pain management contract signed Spastic dysphonia Tremor DDD (degenerative disc disease), lumbar Displacement of intervertebral disc of lumbar region Long-term use of high-risk medication Lumbar radiculitis Lumbar spine pain Neck pain Primary osteoarthritis Spondylosis Tobacco use Motivated to quit Surgical History S/P hysterectomy S/P cholecystectomy S/P appendectomy Status post coronary artery stent placement Family History Brother CAD (coronary artery disease) Hypertension Grandmother Diabetes Other Hyperlipidemia Social History Smoking and tobacco/nicotine status: never used tobacco/nicotine Quit status (tobacco/nicotine): considering quitting Alcohol intake: never Substance/Drug Use: never Adopted: No Caregiver/support person: No Lives independently: Yes Household members: spouse Physical Exam 2 Const: COMMON NORMALS: no acute distress, average body habitus, patient oriented x3, no limitations, healthy appearing, alert and well nourished HENMT: COMMON NORMALS: normocephalic, atraumatic, hearing grossly normal bilaterally, external ears normal, Normal external nose present and moist oral mucous membranes HEAD & SCALP: normocephalic and atraumatic NOSE: Normal external nose present EXTERNAL EAR: Yes external ears normal Neck/C-Spine: COMMON NORMALS: no JVD Chest: COMMONS NORMALS: normal inspection of the chest and normal palpation of entire chest wall Resp: COMMON NORMALS: normal respiratory effort, No retractions, No use of accessory muscles and clear to auscultation bilaterally AUSCULTATION: clear to auscultation bilaterally Cardio: COMMON NORMALS: no JVD, regular rate, regular rhythm, S1 normal heart sound present, S2 normal heart sound present, No gallops present (Cardio), No clicks present (Cardio), No murmurs present (Cardio) and No rub (Cardio) R ATE: regular rate RHYTHM: regular rhythm HEART SOUNDS: S1 normal heart sound present and S2 normal heart sound present GI: COMMON NORMALS: Normal to inspection, nondistended, normoactive bowel sounds present, Soft to palpation, non-tender, No hepatosplenomegaly present and no masses PALPATION: Yes Soft to palpation and Yes No hepatosplenomegaly present Neuro: COMMON NORMALS: patient oriented x3 SENSORIUM/ORIENTATION: Yes alert Course 2 Vital Signs: Vital signs: Vital Signs Temperature 98.4 F 04/20/24 02:06 Pulse Rate 60 04/20/24 02:06 Respiratory Rate 18 04/20/24 02:06 Blood Pressure 150/77 04/20/24 02:06 Pulse Oximetry 96 04/20/24 02:06 Oxygen Delivery Me thod Room Air 04/20/24 02:06 MDM - Chest Pain Medical Decision Making Present with ER with chest pain. Patient was worked up at standard chest pain fashion with serial EKGs, serial troponins, lab work, chest x-ray, all of which was benign. Patient be discharged home. Lab Data 04/20/24 02:18 04/20/24 02:18 Laboratory Results WBC 6.41 10^3/uL (3.29-11.43) 04/20/24 02:18 RBC 4.71 10^6/uL (3.85-5.65) 04/20/24 02:18 Hgb 14.40 g/dL (11.27-16.99) 04/20/24 02:18 Hct 43.9 % (36-47) 04/20/24 02:18 MCV 93.2 fl (85-98) 04/20/24 02:18 MCH 30.6 pg (27-33) 04/20/24 02:18 MCHC 32.8 g/dL (30-55) 04/20/24 02:18 RDW 13.8 % (12.1-15.1) 04/20/24 02:18 Plt Count 153 10^3/cmm (157-399) L 04/20/24 02:18 MPV 10.0 fL (7.4-10.4) 04/20/24 02:18 Neut % (Auto) 46.3 % 04/20/24 02:18 Lymph % (Auto) 41.7 % 04/20/24 02:18 [place] % (Auto) 8.9 % 04/20/24 02:18 Eos % (Auto) 2.3 % 04/20/24 02:18 Baso % (Auto) 0.6 % 04/20/24 02:18 Neut # (Auto) 2.97 10^3/uL (1.8-7.7) 04/20/24 02:18 Lymph # (Auto) 2.7 10^3/uL (0.8-4.8) 04/20/24 02:18 [place] # (Auto) 0.6 10^3/uL (0.2-0.9) 04/20/24 02:18 Eos # (Auto) 0.2 10^3/uL (0.0-0.8) 04/20/24 02:18 Baso # (Auto) 0.0 10^3/uL (0.0-0.1) 04/20/24 02:18 Nucleated RBC % (auto) 0 % 04/20/24 02:18 Nucleated RBCs # 0.0 /100WBC 04/20/24 02:18 PT 12.70 SECONDS (12.1-14.9) 04/20/24 02:18 INR 0.92 (0.8-1.2) 04/20/24 02:18 APTT 27.0 SECONDS (23.9-36.7) 04/20/24 02:18 Sodium 138 mmol/L (136-145) 04/20/24 02:18 Potassium 3.6 mmol/L (3.5-5.1) 04/20/24 02:18 Chloride 97 mmol/L (98-107) L 04/20/24 02:18 Carbon Dioxide 28 mmol/L (22-29) 04/20/24 02:18 Anion Gap 16.6 (5-19) 04/20/24 02:18 BUN 13 mg/dL (8-23) 04/20/24 02:18 Creatinine 0.7 mg/dL (0.5-0.9) 04/20/24 02:18 GFR Calculation Not Reportable 04/20/24 02:18 Glucose 135 mg/dL (65-115) H 04/20/24 02:18 Calculated Osmolality 288 mOsm/kg (285-295) 04/20/24 02:18 Calcium 9.1 mg/dL (8.5-10.5) 04/20/24 02:18 Total Bilirubin 0.5 mg/dL (0.15-1.2) 04/20/24 02:18 AST 15 U/L (0-32) 04/20/24 02:18 ALT 18 U/L (0-33) 04/20/24 02:18 Alkaline Phosphatase 75 U/L (35-105) 04/20/24 02:18 Creatine Kinase 44 U/L (26-192) 04/20/24 02:18 Troponin T Baseline 7 ng/L (0-10) 04/20/24 02:18 NT-Pro-B Natriuret Pep 37 pg/mL (0-125) 04/20/24 02:18 Total Protein 6.1 g/dL (6.6-8.7) L 04/20/24 02:18 Albumin 4.1 g/dL (3.5-5.2) 04/20/24 02:18 Globulin 2.0 g/dL (1.3-4.6) 04/20/24 02:18 Lipase 50 U/L (13-60) 04/20/24 02:18 Urine Color Yellow (Yellow) 04/20/24 02:55 Urine Appearance Clear (CLEAR) 04/20/24 02:55 Urine pH 6.0 (5-7) 04/20/24 02:55 Ur Specific [place] 1.006 (1.005-1.030) 04/20/24 02:55 Urine Protein Negative (Negative) 04/20/24 02:55 Urine Glucose (UA) 3+ (Normal) H 04/20/24 02:55 Urine Ketones Negative (Negative) 04/20/24 02:55 Urine Blood Negative (Negative) 04/20/24 02:55 Urine Nitrate Negative (Negative) 04/20/24 02:55 Urine Bilirubin Negative (Negative) 04/20/24 02:55 Urine Urobilinogen 1.0 mg/dL (Negative) 04/20/24 02:55 Ur Leukocyte Esterase Negative (Negative) 04/20/24 02:55 Urine RBC 0-2 /hpf (0-2) 04/20/24 02:55 Urine WBC 0-5 /hpf (0-5) 04/20/24 02:55 Ur Squamous Epith Cells 0-5 /hpf (0-5) 04/20/24 02:55 Amorphous Sediment Not Reportable 04/20/24 02:55 Urine Bacteria None seen /hpf (NONE) 04/20/24 02:55 Hyaline Casts 0-4 /lpf H 04/20/24 02:55 All radiology interpretation(s) finalized by discharge Discharge Plan Discharge Patient Disposition: Home Clinical Impression: Chest pain Qualifiers: Chest pain type: unspecified Qualified Code(s): R07.9 - Chest pain, unspecified Condition: Stable Prescriptions: No Action aspirin 81 mg tablet,delayed release (DR/EC) 81 mg PO QAM calcium carbonate-vitamin D3 500 mg(1,250mg) -125 unit tablet 1 tab PO QAM Healthy Eyes SuperVision [id number] vsyj-gu-bgyg capsule 1 cap PO DAILY (DME) blood-glucose meter Mis See Rx Instructions .MEDSUPPLY Qty: 1 0RF Rx Instructions: Use as directed for checking blood sugar (DME) Blood Glucose Test Strip See Rx Instructions .MEDSUPPLY Qty: 200 12RF Rx Instructions: Use as directed with glucometer to check blood sugar (DME) lancets Misc See Rx Instructions .MEDSUPPLY Qty: 200 12RF Rx Instructions: Use as directed to prick skin for blood sugar checks cyanocobalamin (vitamin B-12) 2,500 mcg tablet 2,500 mcg PO DAILY nicotine 21-14-7 mg/24 hr patch, TD daily, sequential See Rx Instructions transdermal .COMPLEX Qty: 56 0RF Rx Instructions: apply 1-21 mg NICOTINE PATCH daily for 28 days; follow with 1-14 mg PATCH daily for 14 days, then 1-7mg PATCH daily for 14 days transdermal allopurinol 100 mg tablet 100 mg PO DAILY Qty: 30 5RF buspirone 10 mg tablet 10 mg PO BID Qty: 60 5RF Farxiga 10 mg tablet See Rx Instructions .ROUTE .COMPLEX Qty: 30 5RF Dose Instruction: TAKE ONE TABLET BY MOUTH DAILY Rx Instructions: TAKE ONE TABLET BY MOUTH DAILY isosorbide mononitrate 60 mg tablet extended release 24 hr See Rx Instructions .ROUTE .COMPLEX Qty: 30 5RF Dose Instruction: TAKE ONE TABLET BY MOUTH DAILY Rx Instructions: TAKE ONE TABLET BY MOUTH DAILY metformin 1,000 mg tablet 1,000 mg PO BID Qty: 180 1RF nitroglycerin 0.4 mg tablet, sublingual See Rx Instructions .ROUTE .COMPLEX Qty: 25 11RF Dose Instruction: DISSOLVE 1 TABLET UNDER THE TONGUE EVERY 5 MINUTES NEEDED FOR CHEST PAIN. DO NOT EXCEED A TOTAL OF 3 DOSES IN 15 MINUTES. Rx Instructions: DISSOLVE 1 TABLET UNDER THE TONGUE EVERY 5 MINUTES NEEDED FOR CHEST PAIN. DO NOT EXCEED A TOTAL OF 3 DOSES IN 15 MINUTES. atorvastatin 80 mg tablet 80 mg PO DAILY Qty: 90 3RF furosemide 40 mg tablet See Rx Instructions .ROUTE .COMPLEX Qty: 90 3RF Dose Instruction: Take 1 tablet by mouth daily Rx Instructions: Take 1 tablet by mouth daily metoprolol succinate 25 mg tablet extended release 24 hr 25 mg PO QAM Qty: 90 3RF lisinopril 5 mg tablet 5 mg PO BEDTIME Qty: 90 3RF clopidogrel 75 mg tablet 75 mg PO QAM Qty: 90 3RF methimazole 5 mg tablet See Rx Instructions .ROUTE .COMPLEX Qty: 30 11RF Dose Instruction: TAKE ONE TABLET BY MOUTH EVERY DAY Rx Instructions: TAKE ONE TABLET BY MOUTH EVERY DAY Discharge Orders: Discharge ED (Routine); Ordered 04/20/24 Ordered By: Rolan Ruiz Referrals: Emely Butler FNP [Primary Care Provider] - 1 week Patient Instructions: Chest Pain (ED) Activity Restrictions/Additional Instructions: Evaluation ER that included lab work, chest x-ray, EKGs, did not show any acute coronary cause of your chest pain. Your chest pain is felt to be noncardiac in nature at this time. Please follow-up with your family practitioner in the next 7 days for further evaluation and treatment. If your chest pain returns or worsens please feel free to return to the ER. 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
[2024-04-20 02:35] LABS: INR 0.92 (0.8-1.2)
[2024-04-20 02:42] LABS: Troponin(5th) Baseline 7 ng/L (0-10)
[2024-04-20 02:45] LABS: Alanine Aminotransferase 18 U/L (0-33); Albumin Level 4.1 g/dL (3.5-5.2); Alkaline Phosphatase 75 U/L (35-105); Anion Gap 16.6 (5-19); Aspartate Amino Transferase 15 U/L (0-32); Blood Urea Nitrogen 13 mg/dL (8-23); Calcium 9.1 mg/dL (8.5-10.5); Carbon Dioxide 28 mmol/L (22-29); Chloride 97 mmol/L (98-107); Creatine Phosphokinase 44 U/L (26-192); Creatinine Clr Calc Pharmacy 76.9578; Glucose 135 mg/dL (65-115); Lipase 50 U/L (13-60); Osmolality Calculated 288 mOsm/kg (285-295); Potassium 3.6 mmol/L (3.5-5.1); Sodium 138 mmol/L (136-145); Total Bilirubin 0.5 mg/dL (0.15-1.2); Total Protein 6.1 g/dL (6.6-8.7)
[2024-04-20 02:51] LABS: NT Pro B Type Natriuretic Pept 37 pg/mL (0-125)
[2024-04-20 03:08] LABS: Bilirubin Urine Negative (Negative); Blood Urine Negative (Negative); Glucose Urine UA 3+ (Normal); Ketones Urine Negative (Negative); Leukocyte Esterase Urine Negative (Negative); Nitrate Urine Negative (Negative); Protein Urine Negative (Negative); Specific Gravity, Urine 1.006 (1.005-1.030); Urine Appearance Clear (CLEAR); Urine Color Yellow (Yellow)
[2024-04-20 03:13] LABS: Add Urine Microscopic? YES; Bacteria Urine None Seen /hpf; Hyaline Casts Urine 0-4 /lpf; RBC Urine 0-2 /hpf (0-2); Squamous Epithelial Cell Urine 0-5 /hpf (0-5); WBC Urine 0-5 /hpf (0-5)
[2024-04-20 05:46] VITALS: BP 147/86; PULSE 67; O2SAT 94
== END 2024-04-20 05:46 | disposition home or self-care (01) ==
PROVIDERS: Emergency Provider Emergency Medicine; PCP Nurse Practitioner Family
DX: R07.9 Chest pain, unspecified (principal); Z79.82 Long term (current) use of aspirin; Z79.84 Long term (current) use of oral hypoglycemic drugs; Z79.02 Long term (current) use of antithrombotics/antiplatelets; Z95.5 Presence of coronary angioplasty implant and graft; E11.9 Type 2 diabetes mellitus without complications; I10 Essential (primary) hypertension
CPT/HCPCS: 71045; 80053; 81001; 82550; 83690; 83880; 84484; 85025; 85610; 85730; 93005; 99285

== ENCOUNTER → 2024-04-23 08:47 | Outpatient (BNVA) | payer MEDICARE, MEDICAID, SELFPAY | PROVIDERS: PCP Nurse Practitioner Family; Visit Provider Nurse Practitioner Family | DX: I25.5 Ischemic cardiomyopathy (principal); R94.39 Abnormal result of other cardiovascular function study; Z87.891 Personal history of nicotine dependence; R07.9 Chest pain, unspecified; I10 Essential (primary) hypertension; E11.9 Type 2 diabetes mellitus without complications; Z79.84 Long term (current) use of oral hypoglycemic drugs | CPT/HCPCS: 99214 ==

== ENCOUNTER → 2024-04-30 13:20 | Outpatient (BNVA) | payer MEDICARE, MEDICAID, SELFPAY | PROVIDERS: PCP Nurse Practitioner Family; Visit Provider Nurse Practitioner Family | DX: E11.9 Type 2 diabetes mellitus without complications (principal); Z79.899 Other long term (current) drug therapy | CPT/HCPCS: 80061; 83036; 84439; 84443; 84550 ==

== ENCOUNTER 2024-05-15 06:19 | Outpatient (CLI) | payer MEDICARE, MEDICAID, SELFPAY ==
[2024-05-15] VITALS (15 sets, daily range): BP systolic 92–144; BP diastolic 47–71; PULSE 57–85; RESP 14–20; TEMP 36.9; O2SAT 91–96; BMI 34.5
--- NOTE | 2024-05-15 | XACV_ITS ---
Exam Room: 2 Ht: 168 cm Wt: 97 kg BSA: 2.16 m2 Gender: Female : 1950 Any Known Allergies: Penicillins Exam Priority: Routine Procedure(s): Procedure Description: Diagnostic procedure Procedure Description: Coronary Angiography Procedure Description: Pressure Wire Diagnostic Cath Status: Elective Diagnostic Findings * INDICATION: Chest pain/ CCS 2-3 ANGINA/ Abnormal stress test. * Circumflex has mild luminal irregularities. * Right Coronary Artery has patent prior stent. * Mid Left Anterior Descending: moderate 40-50% stenosis, TAMRA: 3 flow. * Left Main has no disease. * Coronary angiography shows right dominance. Interventional Findings * Procedure detail: We engaged left main artery with XB 3.0 guide catheter. We heparin was administered to maintain anticoagulation. After normalization, IFR wire was advanced into the distal vessel. iFR value of 0.93 was obtained that was nonischemic. Medical therapy was decided. iFR wire was removed and final angiogram was performed. 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 Conclusions 1. Moderate mid LAD stenosis. iFR is non-ischemic. Recommendations * Aggressive risk factor modification. * Outpatient cardiology follow up in 2 weeks. Interventional RX Recommendation: medical therapy and/or counseling Diagnostic RX Recommendation: medical therapy and/or counseling Anticoagulation: Heparin Pressures Phase:Rest AO : 101 / 56 ( 73 ) @ 8:03:00 AM Clinical Evaluation EBL: 5mL-10mL Procedural Details Procedure Consent Obtained. Admit Source: Out Patient. Pre-Procedure Time Out. Identified patient by full name and date of as verbalized by the patient/guarantor. Does the consent match the physician's order: Yes. Accurate & Complete Informed Consent: Yes. Inpatient/Outpatient History & Physical on Chart: Yes. If H&P is completed, is and addenduem needed: No; If yes, is the addendum complete: N/A. Visualize and Verify Site with Patient/Guarantor: N/A. Relevant Radiology Images available: Yes. The risks, benefits, and alternatives of sedation and/or procedure were discussed by physician. The patient agrees to continue. Procedure started. [facility] Clinical Fraility Score: 3: Managing Well. Product Support Analyst Indications: Worsening Angina. Chest Pain Symptom Assessment: Typical Angina Symptoms. Correct patient, site and procedure confirmed by cath team. Current diagnosis: Chest Pain, Abnormal stress test. PERRLA. Strong, equal hand computing tutor bilaterally. Lungs clear x 5 lobes. IV Site on Arrival: 20 gauge in the left anticubital. IV Fluids: 0.9% NaCl at KVO. 0 mL infused prior to laborer tree tapping. Pre Procedural Pulses: bilateral radial was 3+. Pre Procedural Pulses: bilateral posterior tibial was 1+. Pre Procedural Pulses: bilateral dorsalis pedis was 2+. Oxygen started at 2 liters/min via nasal canula. right groin was prepped with chloroprep then draped in the usual sterile fashion. right radial was prepped with chloroprep then draped in the usual sterile fashion. Physician notified. Baseline sample Acquired. HR: 52 BPM. Physician arrived. Physician scrubbed in. Immediate Pre-Procedure Time Out. Correct Patient: Yes; Correct Procedure: Yes; Correct Site: Yes; Correct Patient Position: Yes; Correct Supplies: Yes; Dried Flammable Prep: Yes; Blood Products Available: No. Lidocaine 1% infiltrated to the right radial. Arterial access obtained. A 5 south african TIG catheter in over wire. Multiple views taken of left coronary artery. Catheter redirected to the RCA. Multiple views taken of right coronary artery. Catheter removed over the exchange wire. 6 south african XB 3 guide catheter was inserted over the wire. 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 Omnipressure IFR guidewire in through guide catheter to lesion in mid LAD. Guidewire advanced across lesion. IFR of mid LAD 0.93mmhg. Results checked. Wire out. Guide catheter out. Physician scrubbed out. A TR Band was successful obtaining hemostatsis at the Right Radial artery insertion site. Post Procedure: Pulses reassessed and unchanged. PERRLA. Strong, equal hand computing tutor bilaterally. No VTE prophylaxis required. Medication's Wasted: Lidocaine 1% = 18 mL. Medication's Wasted: Nitro = 49.8 mg. Medication's Wasted: Other = Fentanyl 50mcg. Medication's Wasted: Heparin = 2000 units. Total IV fluids: 50 mL. Post-op diagnosis: Moderate mid LAD stenosis. IFR result 0.93. Patent prior stent. Complications: None. Estimated blood loss: 5mL-10mL. Responsiveness - Normal response to verbal stimuli; alert and oriented, PERRLA. Airway - Unaffected, no intervention required; spontaneous ventilation. Circulation: W/N/L, pulses unchanged. Nausea/Vomiting: No. Procedure completed. Patient transferred by wheelchair to CPRU. Vital chart was stopped. Access Site Site: Right Radial artery Sheath Size: 6 Fr Hemostasis Method: TR Band Hemostasis Success: Successful Procedure Medications Start: 7:58 AM Stop: 7:58 AM Medication: Versed Amount: 1 mg Route: I.V. Start: 7:58 AM Stop: 7:58 AM Medication: Fentanyl Amount: 50 mcg Route: I.V. Start: 8:01 AM Stop: 8:01 AM Medication: Versed Amount: 1 mg Route: I.V. Start: 8:01 AM Stop: 8:01 AM Medication: Nitrogylcerin Amount: 200 mcg Route: I.A. Start: 8:03 AM Stop: 8:03 AM Medication: Heparin Amount: 5000 units Route: I.V. Start: 8:06 AM Stop: 8:06 AM Medication: Heparin Amount: 4000 units Route: I.V. I, the attending physician, have reviewed and verified all procedure medications. Yes, all medications given per verbal order History/Risk Factors Hypertension: Yes Dyslipidemia: No Peripheral Arterial Disease (PAD): No Myocardial Infarction (NV): No Obesity: Yes Renal Disease: No Tobacco Use: Current/Recent(w/in 1 year) Prior Interventions PCI: Yes CABG: No Valve Surgery: No Date of PCI: 05/25/2008 Report Signatures Finalized by Glenroy Enriquez MD on 05/19/2024 12:15 PM
[2024-05-15] MEDS: diphenhydrAMINE 50 mg Capsule PO (06:29)
[2024-05-15 06:41] LABS: Basophils # 0.1 10^3/uL (0.0-0.1); Basophils % 0.9 %; Eosinophils # 0.2 10^3/uL (0.0-0.8); Hematocrit 49.9 % (36-47); Lymphocytes # 2.3 10^3/uL (0.8-4.8); Lymphocytes % 33.6 %; Mean Corpuscular HGB Conc 32.1 g/dL (30-55); Mean Corpuscular Hemoglobin 30.1 pg (27-33); Monocytes # 0.6 10^3/uL (0.2-0.9); Monocytes % 9.2 %; Neutrophils # 3.58 10^3/uL (1.8-7.7); Neutrophils % 53.2 %; Nucleated Red Blood Cells % 0 %; Platelet Count 172 10^3/cmm (157-399); Red Blood Count 5.31 10^6/uL (3.85-5.65); Red Cell Distribution Width 13.8 % (12.1-15.1); White Blood Count 6.73 10^3/uL (3.29-11.43)
[2024-05-15 06:56] LABS: Anion Gap 13.9 (5-19); Blood Urea Nitrogen 11 mg/dL (8-23); Calcium 9.6 mg/dL (8.5-10.5); Carbon Dioxide 32 mmol/L (22-29); Chloride 98 mmol/L (98-107); Glucose 177 mg/dL (65-115); Osmolality Calculated 294 mOsm/kg (285-295); Potassium 3.9 mmol/L (3.5-5.1); Sodium 140 mmol/L (136-145)
--- NOTE | 2024-05-15 07:56 | W.PM.OPSUD ---
Surgery/Procedure H&P Update DATE OF PROCEDURE: May 15, 2024 DATE H&P PERFORMED: 04/23/24 H&P UPDATE INFORMATION: I have reviewed H&P completed within last 30 days, I have examined patient prior to procedure and No changes to prior documentation PREOP DIAGNOSIS: Chest pain/ CCS 2/3 ANGINA/ Abnormal stress test PRIMARY INDICATION FOR PROCEDURE: Chest pain/ CCS 2/3 ANGINA/ Abnormal stress test PLANNED PROCEDURE: Operation Date: 05/15/24 07:00 Proposed Procedures p Cardiac Catheterization - [facility] w/wo LV & Coros(Left) - Glenroy Enriquez M.D Possible percutaneous coronary intervention PATIENT REASSESSED PRIOR TO SEDATION, WITH NO CHANGE NOTED: Yes PHYSICAL EXAM: alert, oriented x 3, clear to auscultation bilaterally and regular rate & rhythm AIRWAY EVAL/ANESTHESIA PLAN: normal airway, ASA III, Local Anesthesia, Risks, benefits & alternatives of sedation and/or procedure discussed and Patient agrees to continue as planned ADDITIONAL INFORMATION: Moderate sedation
--- NOTE | 2024-05-15 08:15 | SUR.PHASEII ---
Received the patient back from the rn lab via wheelchair s/p Diagnostic [facility]. Patient ambulated to the cot without difficulty. A & 0 x 3. monitoring and evaluation advisor placed and vital signs obtained. TR band intact to the right wrist. No bleeding or hematoma noted. Palpable radial pulse. No other assessment changes noted from pre cath assessment. Spouse went home prior to the procedure. He was updated by Dr. Enriquez. Patient with no concerns voiced at this time.
--- NOTE | 2024-05-15 08:20 | PM.PROC ---
Procedure Note: Date of procedure: 05/15/24 Pre-procedure diagnosis: Chest pain/ abnormal stress test Post-procedure diagnosis: other (Moderate mid LAD stenosis) Procedure: Left heart cath: Left main artery is patent. LAD has mid vessel moderate 40% stenosis. Status post IFR which is negative for ischemia with a value of 0.93. RCA has patent prior stents. Left circumflex artery is patent. Aggressive medical therapy. Continue aspirin and Plavix. Continue high intensity statin therapy. Performing Provider: Glenroy Enriquez Estimated blood loss (mL): 10 Complications: None Condition: stable Disposition: same day (Discharge) Coding Level of Care Code Acute Code for Chg Fwd
--- NOTE | 2024-05-15 09:30 | SUR.PHASEII ---
Letting the air out of the TR band per protocol. No other assessment changes noted at this time.
--- NOTE | 2024-05-15 10:30 | SUR.PHASEII ---
TR band off per protocol. Site cleansed with water and patted dry. A large band aid was applied to the site and loosely secured with coban. Site soft with no bleeding or hematoma noted. Patient tolerated well.
--- NOTE | 2024-05-15 11:38 | SUR.PHASEII ---
Patient discharged home with daughter via wheelchair.
== END 2024-05-15 06:20 | disposition home or self-care (01) ==
PROVIDERS: PCP Nurse Practitioner Family; Visit Provider Internal Medicine
DX: I25.10 Atherosclerotic heart disease of native coronary artery without angina pectoris (principal); I10 Essential (primary) hypertension; E66.9 Obesity, unspecified; Z68.34 Body mass index [BMI] 34.0-34.9, adult; I42.8 Other cardiomyopathies; Z95.5 Presence of coronary angioplasty implant and graft; I71.40 Abdominal aortic aneurysm, without rupture, unspecified; Z79.82 Long term (current) use of aspirin; Z79.899 Other long term (current) drug therapy; Z87.891 Personal history of nicotine dependence
CPT/HCPCS: 36415; 80048; 85025; 93454; 93571; 96374; 99152; 99153; C1769; C1887; C1894; J1644; J2250; J3010; J3490; J7030; Q0163; Q9967

== ENCOUNTER → 2024-05-22 13:05 | Outpatient (BNVA) | payer MEDICARE, MEDICAID, SELFPAY | PROVIDERS: PCP Nurse Practitioner Family; Visit Provider Nurse Practitioner Family | DX: I11.0 Hypertensive heart disease with heart failure (principal); I50.22 Chronic systolic (congestive) heart failure; I71.40 Abdominal aortic aneurysm, without rupture, unspecified; I25.118 Atherosclerotic heart disease of native coronary artery with other forms of angina pectoris; Z87.891 Personal history of nicotine dependence; R94.39 Abnormal result of other cardiovascular function study | CPT/HCPCS: 36415; 80048; 85025; 99214 ==

== ENCOUNTER 2024-06-17 08:34 | Outpatient (CLI) | payer MEDICARE, MEDICAID, SELFPAY ==
--- NOTE | 2024-06-17 09:15 | USCV_ITS ---
Falguni Bond Age: 73 Gender: F : 1950 Exam Date: 06/17/2024 09:03 Ordering Phys: Megan Talbert NP Technologist: CT Exam Location: [facility] [place] Indication: sys hf BP: 123 / 78 HR: 58 Rhythm: Sinus Technical Quality: Adequate MEASUREMENTS (Male / Female) Normal Values 2D ECHO LVOT Diameter 2.1 cm LV Ejection Fraction MOD 4C 36.7 % LV Ejection Fraction MOD 2C 47.6 % LV Ejection Fraction 2C AL 48.0 % LA Diameter 3.2 cm RA Systolic Volume 4C AL 34.0 ml RA Systolic Volume 4C MOD 33.9 ml LA Sys Volume AL 61.4 cm cubed LA Sys Volume Index AL 28.0 cm cubed/m squared Aorta at Sinotubular Diameter 2.5 cm IVC Diameter 1.8 cm M-MODE LA Ao Ratio MM 1.5 AV Cusp Separation MM 2.2 cm DOPPLER AV Peak Velocity 144.0 cm/s LVOT Peak Velocity 93.0 cm/s AV Area Cont Eq vti 2.0 cm squared AV Area Cont Eq pk 2.3 cm squared MV Peak Velocity 98.0 cm/s MV Area PHT 1.9 cm squared Mitral E to A Ratio 0.6 TR Peak Velocity 189.0 cm/s TR Peak Gradient 14.3 mmHg TV Peak E Velocity 56.0 cm/s PV Peak Velocity 110.5 cm/s FINDINGS Left Ventricle Left ventricle is normal in size. LV systolic function is moderately reduced with EF of 35-40%. Moderate global hypokinesis. Grade 1 diastolic dysfunction. Right Ventricle Normal in size and function Right Atrium Normal in size Left Atrium Normal in size Mitral Valve Structurally normal mitral valve. Trace mitral regurgitation. Aortic Valve Structurally normal aortic valve. No significant stenosis or regurgitation. Tricuspid Valve Insufficient TR jet to calculate RVSP Pulmonic Valve Not well visualized Pericardium Normal Aorta Normal in size IVC Appears to be normal CONCLUSIONS LV systolic function is moderately reduced with EF of 35 to 40%. Grade 1 diastolic dysfunction. Trace mitral regurgitation. Compared to prior echocardiogram from 2017, no significant changes are seen Glenroy Enriquez MD (Electronically Signed) Final Date: 29 June 2024 13:16 S
== END 2024-06-17 08:35 | disposition home or self-care (01) ==
PROVIDERS: PCP Nurse Practitioner Family; Visit Provider Nurse Practitioner Family
DX: R94.39 Abnormal result of other cardiovascular function study (principal); I50.20 Unspecified systolic (congestive) heart failure; R93.1 Abnormal findings on diagnostic imaging of heart and coronary circulation; I51.89 Other ill-defined heart diseases
CPT/HCPCS: 93306

== ENCOUNTER → 2024-07-04 09:05 | Outpatient (BNVA) | payer MEDICARE, MEDICAID, SELFPAY | PROVIDERS: PCP Nurse Practitioner Family; Visit Provider Nurse Practitioner Family | DX: I25.118 Atherosclerotic heart disease of native coronary artery with other forms of angina pectoris (principal); E11.65 Type 2 diabetes mellitus with hyperglycemia; Z79.899 Other long term (current) drug therapy | CPT/HCPCS: 80053; 80061; 83036; 84443; 85025 ==

== ENCOUNTER → 2024-08-21 11:55 | Outpatient (BNVA) | payer MEDICARE, MEDICAID, SELFPAY | PROVIDERS: PCP Nurse Practitioner Family; Visit Provider Internal Medicine | DX: I10 Essential (primary) hypertension (principal); I25.10 Atherosclerotic heart disease of native coronary artery without angina pectoris; I42.9 Cardiomyopathy, unspecified; Z72.0 Tobacco use | CPT/HCPCS: 99214 ==

== ENCOUNTER 2024-08-22 05:08 | Emergency (ER) | payer MEDICARE, MEDICAID, SELFPAY ==
[2024-08-22] VITALS (8 sets, daily range): BP systolic 107–132; BP diastolic 52–76; PULSE 64–91; RESP 16–18; TEMP 37.3; O2SAT 91–97; BMI 32.4
--- NOTE | 2024-08-22 05:09 | ECG_ITS ---
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 Measurements Intervals [place] Rate: 74 P: 77 AL: 170 QRS: 71 QRSD: 131 T: -49 QT: 367 QTc: 409 Interpretive Statements SINUS RHYTHM WITH OCCASIONAL VENTRICULAR PREMATURE COMPLEXES INTRAVENTRICULAR CONDUCTION DELAY [130+ ms QRS DURATION] INFERIOR MYOCARDIAL INFARCTION , OF INDETERMINATE AGE [40+ ms Q WAVE AND/OR ST/T ABNORMALITY IN II/aVF] Compared to ECG 04/20/2024 02:10:51 Ventricular premature complex(es) now present Intraventricular conduction delay now present Sinus bradycardia no longer present Electronically Signed On 08-26-2024 09:30:04 CDT by Glenroy Enriquez M.D. [email or web address]
--- NOTE | 2024-08-22 05:09 | XRR_ITS ---
PROCEDURE INFORMATION: Exam: XR Chest Exam date and time: 08/22/2024 5:15 AM Age: 74 years old Clinical indication: Pain; Chest pressure; Prior surgery; Surgery date: 6+ months; Surgery type: Cardiac stents; Additional info: Chest pain TECHNIQUE: Imaging protocol: Radiologic exam of the chest. Views: 1 view. COMPARISON: CR XR chest 1V portable [id number] 04/20/2024 3:27 AM FINDINGS: Lungs: COPD changes. Pleural spaces: Unremarkable. No pleural effusion. No pneumothorax. Heart/Mediastinum: Unremarkable. No cardiomegaly. Vasculature: Atherosclerotic disease of the aortic arch. Bones/joints: Degenerative change of the visualized osseous structures. Mildly demineralized bones. XR/XR chest 1V portable [id number] IMPRESSION: No acute cardiopulmonary findings.
--- NOTE | 2024-08-22 05:12 | W.ED.CHESTPA ---
Documented by User: Mayra Pike MD 08/22/24 05:19 HPI - Chest Pain General: Chief Complaint: Chest Pain Stated Complaint: cp Time Seen by Provider: 08/22/24 05:09 History of Present Illness: 74-year-old female with a history of coronary artery disease status post stents in the past, abdominal aortic aneurysm with repair/stenting about a month ago, hypertension, type 2 diabetes, obesity, who presents to the emergency room after she woke up with chest pain tonight. She had a sharp chest pain in the center of her chest that lasted about a minute or 2. Not similar to previous heart attacks. Has completely resolved at this time. No cough. No fevers. No altered mental status. No nausea or vomiting. Related Data Home Medications ?Medication ?Instructions ?Recorded ?Confirmed aspirin 81 mg tablet,delayed 81 mg PO [facility] 04/19[facility]19 08/22/24 release calcium 500 mg (as 1 tab PO [facility] 04/19/19 08/22/24 carbonate)-vitamin D3 3.125 mcg (125 unit) tablet vitamins A,C,K-rqjl-vsalbd 4,296 1 cap PO DAILY 04/19/19 08/22/24 mcg-226 mg-90 mg capsule (Healthy Eyes SuperVision) cyanocobalamin (vitamin B-12) 2,500 mcg PO DAILY 09/25/23 08/22/24 2,500 mcg tablet allopurinol 100 mg tablet 100 mg PO DAILY 08/22/24 08/22/24 atorvastatin 80 mg tablet 80 mg PO DAILY 08/22/24 08/22/24 buspirone 10 mg tablet 10 mg PO BID 08/22/24 08/22/24 clopidogrel 75 mg tablet 75 mg PO M 08/22/24 08/22/24 dapagliflozin propanediol 10 mg 10 mg PO DAILY 08/22/24 08/22/24 tablet (Farxiga) furosemide 40 mg tablet 40 mg PO DAILY 08/22/24 08/22/24 isosorbide mononitrate 60 mg 60 mg PO DAILY 08/22/24 08/22/24 tablet,extended release 24 hr lisinopril 5 mg tablet 5 mg PO BEDTIME 08/22/24 08/22/24 metformin 1,000 mg tablet 1,000 mg PO BID 08/22/24 08/22/24 methimazole 5 mg tablet 5 mg PO DAILY 08/22/24 08/22/24 metoprolol succinate 25 mg 25 mg PO QAM 08/22/24 08/22/24 tablet,extended release 24 hr Previous Rx's ?Medication ?Instructions ?Recorded nitroglycerin 0.4 mg sublingual See Rx Instructions .Route 11/18/22 tablet .COMPLEX #25 tabs blood sugar diagnostic (Blood #200 ea 03/30/23 Glucose Test strips) blood-glucose meter #1 ea 03/30/23 lancets #200 ea 03/30/23 semaglutide 0.25 mg or 0.5 mg (2 See Rx Instructions SUBCUT .weekly 04/30/24 mg/3 mL) subcutaneous pen injector #3 mL (Ozempic) isosorbide mononitrate 30 mg 30 mg PO DAILY #30 tabs 08/22/24 tablet,extended release 24 hr Allergies Allergy/AdvReac Type Severity Reaction Status Date / Time ciprofloxacin (From Cipro) Allergy ALGY-Swell Verified 08/22/24 05:17 Lip/Tongue/Throat codeine Allergy CONVULSIONS Verified 08/22/24 05:17 Penicillins Allergy CONVULSIONS Verified 08/22/24 05:17 neomycin AdvReac Unknown Verified 08/22/24 05:17 zonisamide (From Zonegran) AdvReac FEELS WEIRD Verified 08/22/24 05:17 Review of Systems Narrative: Constitutional symptoms: Negative except as documented in HPI. Skin symptoms: Negative except as documented in HPI. Eye symptoms: Negative except as documented in HPI. ENMT symptoms: Negative except as documented in HPI. Respiratory symptoms: Negative except as documented in HPI. Cardiovascular symptoms: Negative except as documented in HPI. Gastrointestinal symptoms: Negative except as documented in HPI. Genitourinary symptoms: Negative except as documented in HPI. Musculoskeletal symptoms: Negative except as documented in HPI. Neurologic symptoms: Negative except as documented in HPI. Psychiatric symptoms: Negative except as documented in HPI. Endocrine symptoms: Negative except as documented in HPI. PFSH ED PFSH: Medical History Traumatic hematoma of left wrist Acute pain of left wrist Screening for breast cancer Generalized osteoarthritis Essential hypertension Coronary artery disease Type 2 diabetes mellitus without complications Encounter for long-term opiate analgesic use Abdominal aortic aneurysm Pain management contract signed Spastic dysphonia Tremor DDD (degenerative disc disease), lumbar Displacement of intervertebral disc of lumbar region Long-term use of high-risk medication Lumbar radiculitis Lumbar spine pain Neck pain Primary osteoarthritis Spondylosis Tobacco use Surgical History S/P hysterectomy S/P cholecystectomy S/P appendectomy Status post coronary artery stent placement Family History Brother CAD (coronary artery disease) Hypertension Grandmother Diabetes Other Hyperlipidemia Social History Smoking and tobacco/nicotine status: former use of tobacco/nicotine Quit status (tobacco/nicotine): considering quitting Alcohol intake: never Substance/Drug Use: never Adopted: No Caregiver/support person: No Lives independently: Yes Household members: spouse Physical Exam Narrative: EXAM NARRATIVE: General: Alert, no acute distress. Skin: Warm, dry. Head: Normocephalic, atraumatic. Neck: Supple, trachea midline. Eye: Extraocular movements are intact. Ears, nose, mouth and throat: mucosa moist. Cardiovascular: Regular, Normal peripheral perfusion. Respiratory: Lungs are clear to auscultation, respirations are non-labored, breath sounds are equal, Symmetrical chest wall expansion. Gastrointestinal: Soft, Nontender, Non distended Musculoskeletal: Normal ROM, no deformity. Neurological: Alert and oriented, No focal neurological deficit observed. Psychiatric: Cooperative, appropriate mood & affect. Course Vital Signs: Vital signs: Vital Signs Temperature 99.1 F 08/22/24 05:09 Pulse Rate 86 08/22/24 09:57 Respiratory Rate 16 08/22/24 06:45 Blood Pressure 128/67 08/22/24 09:57 Pulse Oximetry 95 08/22/24 09:57 Oxygen Delivery Me thod Room Air 08/22/24 08:00 Oxygen Flow Rate 2 08/22/24 07:51 MDM - Chest Pain Medical Decision Making Differential diagnosis for patient with chest pain includes but is not limited to and based on the above HPI, review of systems and physical exam: Pneumonia. unstable angina. angina. Acute coronary syndrome / OR. Pulmonary embolism. Costochondritis / musculoskeletal. Pleurisy. Pericarditis. Esophageal spasm. Pancreatis. Cholecystitis. Orders placed to evaluate differential diagnosis based on the above differential, HPI and physical exam EKG: Time 5:11 AM. Rate 74. Normal sinus rhythm, nonspecific ST changes., PVCs, normal [place] & QRS intervals, This was reviewed and interpreted by myself the ER physician at 5:15 AM. This appears fairly similar to EKG done in March 2024. Lab Data 08/22/24 06:48 08/22/24 06:48 Radiology Impressions Chest X-Ray 08/22/24 05:09 IMPRESSION: No acute cardiopulmonary findings. Laboratory Results WBC 6.39 10^3/uL (3.29-11.43) 08/22/24 06:48 RBC 4.35 10^6/uL (3.85-5.65) 08/22/24 06:48 Hgb 13.10 g/dL (11.27-16.99) 08/22/24 06:48 Hct 41.0 % (36-47) 08/22/24 06:48 MCV 94.3 fl (85-98) 08/22/24 06:48 MCH 30.1 pg (27-33) 08/22/24 06:48 MCHC 32.0 g/dL (30-55) 08/22/24 06:48 RDW 13.2 % (12.1-15.1) 08/22/24 06:48 Plt Count 183 10^3/cmm (157-399) 08/22/24 06:48 MPV 9.9 fL (7.4-10.4) 08/22/24 06:48 Neut % (Auto) 64.2 % 08/22/24 06:48 Lymph % (Auto) 25.4 % 08/22/24 06:48 [place] % (Auto) 8.5 % 08/22/24 06:48 Eos % (Auto) 1.1 % 08/22/24 06:48 Baso % (Auto) 0.6 % 08/22/24 06:48 Neut # (Auto) 4.11 10^3/uL (1.8-7.7) 08/22/24 06:48 Lymph # (Auto) 1.6 10^3/uL (0.8-4.8) 08/22/24 06:48 [place] # (Auto) 0.5 10^3/uL (0.2-0.9) 08/22/24 06:48 Eos # (Auto) 0.1 10^3/uL (0.0-0.8) 08/22/24 06:48 Baso # (Auto) 0.0 10^3/uL (0.0-0.1) 08/22/24 06:48 Nucleated RBC % (auto) 0 % 08/22/24 06:48 Nucleated RBCs # 0.0 /100WBC 08/22/24 06:48 Sodium 140 mmol/L (136-145) 08/22/24 06:48 Potassium 3.9 mmol/L (3.5-5.1) 08/22/24 06:48 Chloride 102 mmol/L (98-107) 08/22/24 06:48 Carbon Dioxide 28 mmol/L (22-29) 08/22/24 06:48 Anion Gap 13.9 (5-19) 08/22/24 06:48 BUN 8 mg/dL (8-23) 08/22/24 06:48 Creatinine 0.5 mg/dL (0.5-0.9) 08/22/24 06:48 GFR Calculation Not Reportable 08/22/24 06:48 Glucose 111 mg/dL (65-115) 08/22/24 06:48 Calculated Osmolality 289 mOsm/kg (285-295) 08/22/24 06:48 Calcium 9.1 mg/dL (8.5-10.5) 08/22/24 06:48 Total Bilirubin 0.4 mg/dL (0.15-1.2) 08/22/24 06:48 AST 11 U/L (0-32) 08/22/24 06:48 ALT 10 U/L (0-33) 08/22/24 06:48 Alkaline Phosphatase 78 U/L (35-105) 08/22/24 06:48 Troponin T Baseline < 6 ng/L (0-10) 08/22/24 06:48 Troponin T 120 Minute 6.00 ng/L (0-10) 08/22/24 08:46 Delta Troponin T 0.98659 ABS# (0-10) 08/22/24 08:46 NT-Pro-B Natriuret Pep 84 pg/mL (0-125) 08/22/24 06:48 Total Protein 6.2 g/dL (6.6-8.7) L 08/22/24 06:48 Albumin 3.7 g/dL (3.5-5.2) 08/22/24 06:48 Globulin 2.5 g/dL (1.3-4.6) 08/22/24 06:48 Discharge Plan Discharge Patient Disposition: Home Clinical Impression: Chest pain Type 2 diabetes mellitus Qualifiers: Diabetes mellitus snf insulin use: without snf use Diabetes mellitus complication status: with hyperglycemia Qualified Code(s): E11.65 - Type 2 diabetes mellitus with hyperglycemia Coronary artery disease Qualifiers: Coronary Disease-Associated Artery/Lesion type: [place] artery [place] vs. transplanted heart: [place] heart Associated angina: with stable angina Qualified Code(s): I25.118 - Atherosclerotic heart disease of [place] coronary artery with other forms of angina pectoris Condition: Stable Prescriptions: New isosorbide mononitrate 30 mg tablet extended release 24 hr 30 mg PO DAILY Qty: 30 0RF Rx Instructions: Take with your 60 mg tablets for a total of 90 mg daily No Action aspirin 81 mg tablet,delayed release (DR/EC) 81 mg PO QAM calcium carbonate-vitamin D3 500 mg(1,250mg) -125 unit tablet 1 tab PO QAM Healthy Eyes SuperVision [id number] urvr-xg-[id number] capsule 1 cap PO DAILY Ozempic 0.25 mg or 0.5 mg (2 mg/3 mL) pen injector See Rx Instructions SUBCUT .weekly Qty: 3 2RF Rx Instructions: 0.25mg weekly x 4 weeks then 0.5mg weekly thereafter subcutaneously WEEKLY; (DME) blood-glucose meter [facility] See Rx Instructions .MEDSUPPLY Qty: 1 0RF Rx Instructions: Use as directed for checking blood sugar (DME) Blood Glucose Test Strip See Rx Instructions .MEDSUPPLY Qty: 200 12RF Rx Instructions: Use as directed with glucometer to check blood sugar (DME) lancets [facility] See Rx Instructions .MEDSUPPLY Qty: 200 12RF Rx Instructions: Use as directed to prick skin for blood sugar checks cyanocobalamin (vitamin B-12) 2,500 mcg tablet 2,500 mcg PO DAILY nitroglycerin 0.4 mg tablet, sublingual See Rx Instructions .ROUTE .COMPLEX Qty: 25 11RF Dose Instruction: DISSOLVE 1 TABLET UNDER THE TONGUE EVERY 5 MINUTES NEEDED FOR CHEST PAIN. DO NOT EXCEED A TOTAL OF 3 DOSES IN 15 MINUTES. Rx Instructions: DISSOLVE 1 TABLET UNDER THE TONGUE EVERY 5 MINUTES NEEDED FOR CHEST PAIN. DO NOT EXCEED A TOTAL OF 3 DOSES IN 15 MINUTES. allopurinol 100 mg tablet 100 mg PO DAILY furosemide 40 mg tablet 40 mg PO DAILY atorvastatin 80 mg tablet 80 mg PO DAILY clopidogrel 75 mg tablet 75 mg PO QAM isosorbide mononitrate 60 mg tablet extended release 24 hr 60 mg PO DAILY metformin 1,000 mg tablet 1,000 mg PO BID buspirone 10 mg tablet 10 mg PO BID methimazole 5 mg tablet 5 mg PO DAILY lisinopril 5 mg tablet 5 mg PO BEDTIME metoprolol succinate 25 mg tablet extended release 24 hr 25 mg PO QAM dapagliflozin propanediol [Farxiga] 10 mg tablet 10 mg PO DAILY Discharge Orders: Discharge ED (Routine); Ordered 08/22/24 Ordered By: Dread Ruiz Referrals: Emely Butler FNP [Primary Care Provider, Family Practice] Discharge Diet: Usual diet Discharge Activity: Increase activity as tolerated Patient Instructions: Opioid Safety, Pain Management Activity Restrictions/Additional Instructions: Thank you for choosing [facility] for your healthcare needs today. It is very important that you follow up as instructed or that you return to the Emergency Department should you have concerns or if your condition changes or worsens in any way. You were seen in the emergency room with complaints of chest pain cardiac enzymes and EKGs were negative. We recommend that you increase your isosorbide mononitrate to 90 mg daily. You were given a prescription for 30 mg tablets take this along with the 60 mg tablets you were previously prescribed. We did review your case with Dr. Enriquez he concurs with these recommendations contact his office for follow-up. Print Language: Citizen [place] Sign Out Sign Out Data: Patient Sign Out occurred on 08/22/24 at 06:00. Patient's care was discussed, and care was transferred from Mayra Pike MD to Dread Ruiz DO. Coding Level of Care Code ED Shade Cutter for Chg Fwd Documented by User: Dread Ruiz DO 08/22/24 13:20 HPI - Chest Pain General: Chief Complaint: Chest Pain Stated Complaint: cp Time Seen by Provider: 08/22/24 05:09 Related Data Home Medications ?Medication ?Instructions ?Recorded ?Confirmed aspirin 81 mg tablet,delayed 81 mg PO QAM 04/19/19 08/22/24 release calcium 500 mg (as 1 tab PO QAM 04/19/19 08/22/24 carbonate)-vitamin D3 3.125 mcg (125 unit) tablet vitamins A,C,I-kzvl-lpccph 4,296 1 cap PO DAILY 04/19/19 08/22/24 mcg-226 mg-90 mg capsule (Healthy Eyes SuperVision) cyanocobalamin (vitamin B-12) 2,500 mcg PO DAILY 09/25/23 08/22/24 2,500 mcg tablet allopurinol 100 mg tablet 100 mg PO DAILY 08/22/24 08/22/24 atorvastatin 80 mg tablet 80 mg PO DAILY 08/22/24 08/22/24 buspirone 10 mg tablet 10 mg PO BID 08/22/24 08/22/24 clopidogrel 75 mg tablet 75 mg PO QAM 08/22/24 08/22/24 dapagliflozin propanediol 10 mg 10 mg PO DAILY 08/22/24 08/22/24 tablet (Farxiga) furosemide 40 mg tablet 40 mg PO DAILY 08/22/24 08/22/24 isosorbide mononitrate 60 mg 60 mg PO DAILY 08/22/24 08/22/24 tablet,extended release 24 hr lisinopril 5 mg tablet 5 mg PO BEDTIME 08/22/24 08/22/24 metformin 1,000 mg tablet 1,000 mg PO BID 08/22/24 08/22/24 methimazole 5 mg tablet 5 mg PO DAILY 08/22/24 08/22/24 metoprolol succinate 25 mg 25 mg PO QAM 08/22/24 08/22/24 tablet,extended release 24 hr Previous Rx's ?Medication ?Instructions ?Recorded nitroglycerin 0.4 mg sublingual See Rx Instructions .Route 11/18/22 tablet .COMPLEX #25 tabs blood sugar diagnostic (Blood #200 ea 03/30/23 Glucose Test strips) blood-glucose meter #1 ea 03/30/23 lancets #200 ea 03/30/23 semaglutide 0.25 mg or 0.5 mg (2 See Rx Instructions SUBCUT .weekly 04/30/24 mg/3 mL) subcutaneous pen injector #3 mL (Ozempic) isosorbide mononitrate 30 mg 30 mg PO DAILY #30 tabs 08/22/24 tablet,extended release 24 hr Allergies Allergy/AdvReac Type Severity Reaction Status Date / Time ciprofloxacin (From Cipro) Allergy ALGY-Swell Verified 08/22/24 05:17 Lip/Tongue/Throat codeine Allergy CONVULSIONS Verified 08/22/24 05:17 Penicillins Allergy CONVULSIONS Verified 08/22/24 05:17 neomycin AdvReac Unknown Verified 08/22/24 05:17 zonisamide (From Zonegran) AdvReac FEELS WEIRD Verified 08/22/24 05:17 PFSH ED PFSH: Medical History Traumatic hematoma of left wrist Acute pain of left wrist Screening for breast cancer Generalized osteoarthritis Essential hypertension Coronary artery disease Type 2 diabetes mellitus without complications Encounter for long-term opiate analgesic use Abdominal aortic aneurysm Pain management contract signed Spastic dysphonia Tremor DDD (degenerative disc disease), lumbar Displacement of intervertebral disc of lumbar region Long-term use of high-risk medication Lumbar radiculitis Lumbar spine pain Neck pain Primary osteoarthritis Spondylosis Tobacco use Surgical History S/P hysterectomy S/P cholecystectomy S/P appendectomy Status post coronary artery stent placement Family History Brother CAD (coronary artery disease) Hypertension Grandmother Diabetes Other Hyperlipidemia Social History Smoking and tobacco/nicotine status: former use of tobacco/nicotine Quit status (tobacco/nicotine): considering quitting Alcohol intake: never Substance/Drug Use: never Adopted: No Caregiver/support person: No Lives independently: Yes Household members: spouse Course Vital Signs: Vital signs: Vital Signs Temperature 99.1 F 08/22/24 05:09 Pulse Rate 86 08/22/24 09:57 Respiratory Rate 16 08/22/24 06:45 Blood Pressure 128/67 08/22/24 09:57 Pulse Oximetry 95 08/22/24 09:57 Oxygen Delivery Me thod Room Air 08/22/24 08:00 Oxygen Flow Rate 2 08/22/24 07:51 MDM - Chest Pain Medical Decision Making Differential diagnosis for patient with chest pain includes but is not limited to and based on the above HPI, review of systems and physical exam: Pneumonia. unstable angina. angina. Acute coronary syndrome / OR. Pulmonary embolism. Costochondritis / musculoskeletal. Pleurisy. Pericarditis. Esophageal spasm. Pancreatis. Cholecystitis. Orders placed to evaluate differential diagnosis based on the above differential, HPI and physical exam EKG: Time 5:11 AM. Rate 74. Normal sinus rhythm, nonspecific ST changes., PVCs, normal [place] & QRS intervals, This was reviewed and interpreted by myself the ER physician at 5:15 AM. This appears fairly similar to EKG done in March 2024. Care assumed at change of shift. Second set of cardiac enzymes negative second EKG does not show any acute changes from previous reviewed as found in the chart compared to earlier EKG and EKG from March 2024. Reviewed with Dr. Enriquez who is on-call for cardiology and has seen the patient in the past or recommending increasing his Sorbide to 90 mg daily and follow-up with cardiology clinic next week return for this further problems Medical Records I reviewed the patient's medical records. Lab Data I reviewed the patient's lab results. 08/22/24 06:48 08/22/24 06:48 Radiology Impressions Chest X-Ray 08/22/24 05:09 IMPRESSION: No acute cardiopulmonary findings. Laboratory Results WBC 6.39 10^3/uL (3.29-11.43) 08/22/24 06:48 RBC 4.35 10^6/uL (3.85-5.65) 08/22/24 06:48 Hgb 13.10 g/dL (11.27-16.99) 08/22/24 06:48 Hct 41.0 % (36-47) 08/22/24 06:48 MCV 94.3 fl (85-98) 08/22/24 06:48 MCH 30.1 pg (27-33) 08/22/24 06:48 MCHC 32.0 g/dL (30-55) 08/22/24 06:48 RDW 13.2 % (12.1-15.1) 08/22/24 06:48 Plt Count 183 10^3/cmm (157-399) 08/22/24 06:48 MPV 9.9 fL (7.4-10.4) 08/22/24 06:48 Neut % (Auto) 64.2 % 08/22/24 06:48 Lymph % (Auto) 25.4 % 08/22/24 06:48 [place] % (Auto) 8.5 % 08/22/24 06:48 Eos % (Auto) 1.1 % 08/22/24 06:48 Baso % (Auto) 0.6 % 08/22/24 06:48 Neut # (Auto) 4.11 10^3/uL (1.8-7.7) 08/22/24 06:48 Lymph # (Auto) 1.6 10^3/uL (0.8-4.8) 08/22/24 06:48 [place] # (Auto) 0.5 10^3/uL (0.2-0.9) 08/22/24 06:48 Eos # (Auto) 0.1 10^3/uL (0.0-0.8) 08/22/24 06:48 Baso # (Auto) 0.0 10^3/uL (0.0-0.1) 08/22/24 06:48 Nucleated RBC % (auto) 0 % 08/22/24 06:48 Nucleated RBCs # 0.0 /100WBC 08/22/24 06:48 Sodium 140 mmol/L (136-145) 08/22/24 06:48 Potassium 3.9 mmol/L (3.5-5.1) 08/22/24 06:48 Chloride 102 mmol/L (98-107) 08/22/24 06:48 Carbon Dioxide 28 mmol/L (22-29) 08/22/24 06:48 Anion Gap 13.9 (5-19) 08/22/24 06:48 BUN 8 mg/dL (8-23) 08/22/24 06:48 Creatinine 0.5 mg/dL (0.5-0.9) 08/22/24 06:48 GFR Calculation Not Reportable 08/22/24 06:48 Glucose 111 mg/dL (65-115) 08/22/24 06:48 Calculated Osmolality 289 mOsm/kg (285-295) 08/22/24 06:48 Calcium 9.1 mg/dL (8.5-10.5) 08/22/24 06:48 Total Bilirubin 0.4 mg/dL (0.15-1.2) 08/22/24 06:48 AST 11 U/L (0-32) 08/22/24 06:48 ALT 10 U/L (0-33) 08/22/24 06:48 Alkaline Phosphatase 78 U/L (35-105) 08/22/24 06:48 Troponin T Baseline < 6 ng/L (0-10) 08/22/24 06:48 Troponin T 120 Minute 6.00 ng/L (0-10) 08/22/24 08:46 Delta Troponin T 0.30281 ABS# (0-10) 08/22/24 08:46 NT-Pro-B Natriuret Pep 84 pg/mL (0-125) 08/22/24 06:48 Total Protein 6.2 g/dL (6.6-8.7) L 08/22/24 06:48 Albumin 3.7 g/dL (3.5-5.2) 08/22/24 06:48 Globulin 2.5 g/dL (1.3-4.6) 08/22/24 06:48 All radiology interpretation(s) finalized by discharge Discharge Plan Discharge Patient Disposition: Home Clinical Impression: Chest pain Type 2 diabetes mellitus Qualifiers: Diabetes mellitus snf insulin use: without long winder tender use Diabetes mellitus complication status: with hyperglycemia Qualified Code(s): E11.65 - Type 2 diabetes mellitus with hyperglycemia Coronary artery disease Qualifiers: Coronary Disease-Associated Artery/Lesion type: [place] artery [place] vs. transplanted heart: [place] heart Associated angina: with stable angina Qualified Code(s): I25.118 - Atherosclerotic heart disease of [place] coronary artery with other forms of angina pectoris Condition: Stable Prescriptions: New isosorbide mononitrate 30 mg tablet extended release 24 hr 30 mg PO DAILY Qty: 30 0RF Rx Instructions: Take with your 60 mg tablets for a total of 90 mg daily No Action aspirin 81 mg tablet,delayed release (DR/EC) 81 mg PO QAM calcium carbonate-vitamin D3 500 mg(1,250mg) -125 unit tablet 1 tab PO QAM Healthy Eyes SuperVision [id number] tkwq-gj-ihwe capsule 1 cap PO DAILY Ozempic 0.25 mg or 0.5 mg (2 mg/3 mL) pen injector See Rx Instructions SUBCUT .weekly Qty: 3 2RF Rx Instructions: 0.25mg weekly x 4 weeks then 0.5mg weekly thereafter subcutaneously WEEKLY; (DME) blood-glucose meter [facility] See Rx Instructions .MEDSUPPLY Qty: 1 0RF Rx Instructions: Use as directed for checking blood sugar (DME) Blood Glucose Test Strip See Rx Instructions .MEDSUPPLY Qty: 200 12RF Rx Instructions: Use as directed with glucometer to check blood sugar (DME) lancets Misc See Rx Instructions .MEDSUPPLY Qty: 200 12RF Rx Instructions: Use as directed to prick skin for blood sugar checks cyanocobalamin (vitamin B-12) 2,500 mcg tablet 2,500 mcg PO DAILY nitroglycerin 0.4 mg tablet, sublingual See Rx Instructions .ROUTE .COMPLEX Qty: 25 11RF Dose Instruction: DISSOLVE 1 TABLET UNDER THE TONGUE EVERY 5 MINUTES NEEDED FOR CHEST PAIN. DO NOT EXCEED A TOTAL OF 3 DOSES IN 15 MINUTES. Rx Instructions: DISSOLVE 1 TABLET UNDER THE TONGUE EVERY 5 MINUTES NEEDED FOR CHEST PAIN. DO NOT EXCEED A TOTAL OF 3 DOSES IN 15 MINUTES. allopurinol 100 mg tablet 100 mg PO DAILY furosemide 40 mg tablet 40 mg PO DAILY atorvastatin 80 mg tablet 80 mg PO DAILY clopidogrel 75 mg tablet 75 mg PO QAM isosorbide mononitrate 60 mg tablet extended release 24 hr 60 mg PO DAILY metformin 1,000 mg tablet 1,000 mg PO BID buspirone 10 mg tablet 10 mg PO BID methimazole 5 mg tablet 5 mg PO DAILY lisinopril 5 mg tablet 5 mg PO BEDTIME metoprolol succinate 25 mg tablet extended release 24 hr 25 mg PO QAM dapagliflozin propanediol [Farxiga] 10 mg tablet 10 mg PO DAILY Discharge Orders: Discharge ED (Routine); Ordered 08/22/24 Ordered By: Dread Ruiz Referrals: Emely Butler FNP [Primary Care Provider, Family Practice] Discharge Diet: Usual diet Discharge Activity: Increase activity as tolerated Patient Instructions: Opioid Safety, Pain Management Activity Restrictions/Additional Instructions: Thank you for choosing [facility] for your healthcare needs today. It is very important that you follow up as instructed or that you return to the Emergency Department should you have concerns or if your condition changes or worsens in any way. You were seen in the emergency room with complaints of chest pain cardiac enzymes and EKGs were negative. We recommend that you increase your isosorbide mononitrate to 90 mg daily. You were given a prescription for 30 mg tablets take this along with the 60 mg tablets you were previously prescribed. We did review your case with Dr. Enriquez he concurs with these recommendations contact his office for follow-up. Print Language: Citizen [place] Sign Out Sign Out Data: Patient Sign Out occurred on 08/22/24 at 06:00. Patient's care was discussed, and care was transferred from Mayra Pike MD to Dread Ruiz DO. Coding Level of Care Code ED Shade Cutter for Nasir Panda
[2024-08-22] MEDS: aspirin 81 mg Chew Tablet 324 MG PO (05:22)
[2024-08-22 07:01] LABS: Basophils % 0.6 %; Eosinophils # 0.1 10^3/uL (0.0-0.8); Eosinophils % 1.1 %; Lymphocytes # 1.6 10^3/uL (0.8-4.8); Lymphocytes % 25.4 %; Mean Corpuscular Hemoglobin 30.1 pg (27-33); Mean Corpuscular Volume 94.3 fl (85-98); Mean Platelet Volume 9.9 fL (7.4-10.4); Monocytes # 0.5 10^3/uL (0.2-0.9); Monocytes % 8.5 %; Neutrophils # 4.11 10^3/uL (1.8-7.7); Neutrophils % 64.2 %; Nucleated Red Blood Cells % 0 %; Platelet Count 183 10^3/cmm (157-399); Red Blood Count 4.35 10^6/uL (3.85-5.65); Red Cell Distribution Width 13.2 % (12.1-15.1); White Blood Count 6.39 10^3/uL (3.29-11.43)
[2024-08-22 07:10] LABS: Troponin(5th) Baseline < 6 ng/L (0-10)
[2024-08-22 07:20] LABS: Alanine Aminotransferase 10 U/L (0-33); Albumin Level 3.7 g/dL (3.5-5.2); Alkaline Phosphatase 78 U/L (35-105); Anion Gap 13.9 (5-19); Aspartate Amino Transferase 11 U/L (0-32); Blood Urea Nitrogen 8 mg/dL (8-23); Calcium 9.1 mg/dL (8.5-10.5); Carbon Dioxide 28 mmol/L (22-29); Chloride 102 mmol/L (98-107); Globulin 2.5 g/dL (1.3-4.6); Glucose 111 mg/dL (65-115); Osmolality Calculated 289 mOsm/kg (285-295); Potassium 3.9 mmol/L (3.5-5.1); Sodium 140 mmol/L (136-145); Total Bilirubin 0.4 mg/dL (0.15-1.2); Total Protein 6.2 g/dL (6.6-8.7)
--- NOTE | 2024-08-22 07:25 | ECG_ITS ---
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 Measurements Intervals [place] Rate: 71 P: 63 NH: 183 QRS: 74 QRSD: 133 T: -24 QT: 408 QTc: 444 Interpretive Statements SINUS RHYTHM WITH OCCASIONAL VENTRICULAR PREMATURE COMPLEXES INTRAVENTRICULAR CONDUCTION DELAY [130+ ms QRS DURATION] POSSIBLE LATERAL MYOCARDIAL INFARCTION , OF INDETERMINATE AGE [30 ms Q WAVE IN I/aVL/V5/V6] POSSIBLE INFERIOR MYOCARDIAL INFARCTION , OF INDETERMINATE AGE [30 ms Q WAVE IN II/aVF] Compared to ECG 08/22/2024 05:11:50 No significant changes Electronically Signed On 08-26-2024 10:38:22 CDT by Glenroy Enriquez M.D. [email or web address]
[2024-08-22 07:29] LABS: NT Pro B Type Natriuretic Pept 84 pg/mL (0-125)
--- NOTE | 2024-08-22 07:49 | PC.PHAR ---
Pt uses [facility]-they are faxing med list 08/22/24 7:49am. Last reconciled 07/09/24
[2024-08-22 09:10] LABS: Troponin 5 2HR Delta 0.00001 ABS# (0-10)
== END 2024-08-22 10:04 | disposition home or self-care (01) ==
PROVIDERS: Emergency Medicine; Emergency Provider Family Medicine; PCP Nurse Practitioner Family
DX: R07.9 Chest pain, unspecified (principal); E11.65 Type 2 diabetes mellitus with hyperglycemia; I25.118 Atherosclerotic heart disease of native coronary artery with other forms of angina pectoris; Z79.82 Long term (current) use of aspirin; Z79.02 Long term (current) use of antithrombotics/antiplatelets; Z79.84 Long term (current) use of oral hypoglycemic drugs; Z87.891 Personal history of nicotine dependence; I10 Essential (primary) hypertension
CPT/HCPCS: 36415; 71045; 80053; 83880; 84484; 85025; 93005; 99285; J9999

== ENCOUNTER → 2024-12-02 16:02 | Outpatient (BNVA) | payer MEDICARE, MEDICAID, SELFPAY | PROVIDERS: PCP Nurse Practitioner Family; Visit Provider Nurse Practitioner | DX: R39.9 Unspecified symptoms and signs involving the genitourinary system (principal); Z79.899 Other long term (current) drug therapy | CPT/HCPCS: 81000; 87086 ==

== ENCOUNTER 2024-12-06 18:03 | Emergency (ER) | payer OTHER, MEDICAID, SELFPAY ==
[2024-12-06 18:10] VITALS: BP 115/68; PULSE 65; RESP 16; TEMP 36.6; O2SAT 94
--- OUTSIDE RECORDS SUMMARY | 2024-12-06 18:11 | XMS_ITS | Patient Health Record ---
Author Organization [facility] Address [address] [place] [address] Care Team Providers Care Coiler Name Role Phone Carrie GUTIÉRREZ Emely Primary Care Provider Nelli Valenzuela Unavailable [phone] Migration, Provider Unavailable Unavailable Marco Covington Unavailable [phone] Allergies Allergen (clinical drug ingredient) Drug/Non Drug Allergy documented on EMR Reaction Allergy Type Onset Date Status codeine Codeine SOB Drug Allergy Active Substance with penicillin structure and antibacterial mechanism of action (substance) Penicillins Convulsions Drug Allergy Active Results Component Value Reference Range Flag Notes Urine Drug Screen (cup read) - [id number] Reviewed date:10/10/2024 04:34:30 PM Interpretation: Performing Lab: Notes/Report: AMP - PAULINA - BUP - BZO - MDMA - OPI - PCP - OXY - MTD - MAMP - Urine Drug Screen (cup read) - [id number] Reviewed date:09/05/2024 10:57:52 AM Interpretation:Negative Performing Lab: Notes/Report: Negative Urine Confirmation Panel (in strument) - [id number] Reviewed date:09/05/2024 02:31:06 PM Interpretation: Performing Lab: Notes/Report: 6-Acetylmorphine 0 <6 ng/mL N This josh t was developed and its performance characteristics determined by [facility]. It has not been cleared or approved by the U.S. Food and Drug Administration. 7-Aminoclonazepam 0 <60 ng/mL N This te st was developed and its performance characteristics determined by [facility]. It has not been cleared or approved by the U.S. Food and Drug Administration. Alprazolam 0 <60 ng/mL N This test was developed and its performance characteristics determined by [facility]. It has not been cleared or approved by the U.S. Food and Drug Administration. Amphetamine 0 <75 ng/mL N This test was developed and its performance characteristics determined by [facility]. It has not been cleared or approved by the U.S. Food and Drug Administration. aOH-Alprazolam 0 <60 ng/mL N This test was developed and its performance characteristics determined by [facility]. It has not been cleared or approved by the U.S. Food and Drug Administration. Buprenorphine 0.0 <7.5 ng/mL N This test w as developed and its performance characteristics determined by [facility]. It has not been cleared or approved by the U.S. Food and Drug Administration. Norbuprenorphine 0.0 <37.5 ng/mL N This te st was developed and its performance characteristics determined by [facility]. It has not been cleared or approved by the U.S. Food and Drug Administration. Carisoprodol 0 <75 ng/mL N This test wa s developed and its performance characteristics determined by [facility]. It has not been cleared or approved by the U.S. Food and Drug Administration. Codeine 0 <75 ng/mL N This test was developed and its performance characteristics determined by [facility]. It has not been cleared or approved by the U.S. Food and Drug Administration. EDDP 0 <75 ng/mL N This test was developed and its performance characteristics determined by [facility]. It has not been cleared or approved by the U.S. Food and Drug Administration. Fentanyl 0 <6 ng/mL N This test was developed and its performance characteristics determined by [facility]. It has not been cleared or approved by the U.S. Food and Drug Administration. Hydrocodone 118 <75 ng/mL H This test was developed and its performance characteristics determined by [facility]. It has not been cleared or approved by the U.S. Food and Drug Administration. Hydromorphone 145 <75 ng/mL H This test w as developed and its performance characteristics determined by [facility]. It has not been cleared or approved by the U.S. Food and Drug Administration. Lorazepam 0 <60 ng/mL N This test was developed and its performance characteristics determined by [facility]. It has not been cleared or approved by the U.S. Food and Drug Administration. MDMA 0 <75 ng/mL N This test was developed and its performance characteristics determined by [facility]. It has not been cleared or approved by the U.S. Food and Drug Administration. Meperidine 0.0 <37.5 ng/mL N This test was developed and its performance characteristics determined by [facility]. It has not been cleared or approved by the U.S. Food and Drug Administration. Meprobamate 0 <75 ng/mL N This test was developed and its performance characteristics determined by [facility]. It has not been cleared or approved by the U.S. Food and Drug Administration. Methamphetamine 1 <75 ng/mL N This test was developed and its performance characteristics determined by [facility]. It has not been cleared or approved by the U.S. Food and Drug Administration. Methadone 0 <75 ng/mL N This test was developed and its performance characteristics determined by [facility]. It has not been cleared or approved by the U.S. Food and Drug Administration. Morphine 0 <75 ng/mL N This test was developed and its performance characteristics determined by [facility]. It has not been cleared or approved by the U.S. Food and Drug Administration. Nordiazepam 0 <60 ng/mL N This test was developed and its performance characteristics determined by [facility]. It has not been cleared or approved by the U.S. Food and Drug Administration. Norfentanyl 1 <6 ng/mL N This test was developed and its performance characteristics determined by [facility]. It has not been cleared or approved by the U.S. Food and Drug Administration. Normeperidine 0.0 <37.5 ng/mL N This test was developed and its performance characteristics determined by [facility]. It has not been cleared or approved by the U.S. Food and Drug Administration. O-desmethyltramadol 0 <75 ng/mL N This test was developed and its performance characteristics determined by [facility]. It has not been cleared or approved by the U.S. Food and Drug Administration. Oxazepam 0 <60 ng/mL N This test was developed and its performance characteristics determined by [facility]. It has not been cleared or approved by the U.S. Food and Drug Administration. Oxycodone 0.0 <37.5 ng/mL N This test was developed and its performance characteristics determined by [facility]. It has not been cleared or approved by the U.S. Food and Drug Administration. Oxymorphone 0 <75 ng/mL N This test was developed and its performance characteristics determined by [facility]. It has not been cleared or approved by the U.S. Food and Drug Administration. Phencyclidine 0.0 <7.5 ng/mL N This test w as developed and its performance characteristics determined by [facility]. It has not been cleared or approved by the U.S. Food and Drug Administration. Tapentadol 13.3 <37.5 ng/mL N This test was developed and its performance characteristics determined by [facility]. It has not been cleared or approved by the U.S. Food and Drug Administration. Temazepam 7 <60 ng/mL N This test was developed and its performance characteristics determined by [facility]. It has not been cleared or approved by the U.S. Food and Drug Administration. Tramadol 0 <75 ng/mL N This test was developed and its performance characteristics determined by [facility]. It has not been cleared or approved by the U.S. Food and Drug Administration. Norhydrocodone 0 <75 ng/mL N This test was developed and its performance characteristics determined by [facility]. It has not been cleared or approved by the U.S. Food and Drug Administration. Noroxycodone 3 <38 ng/mL N This test wa s developed and its performance characteristics determined by [facility]. It has not been cleared or approved by the U.S. Food and Drug Administration. Pregabalin 11 <225 ng/mL N This test was developed and its performance characteristics determined by [facility]. It has not been cleared or approved by the U.S. Food and Drug Administration. Gabapentin 0 <225 ng/mL N This test was developed and its performance characteristics determined by [facility]. It has not been cleared or approved by the U.S. Food and Drug Administration. Benzoylecgonine 0.0 <37.5 ng/mL N This josh t was developed and its performance characteristics determined by [facility]. It has not been cleared or approved by the U.S. Food and Drug Administration. 4-Hydroxy Xylazine 2 <25 ng/mL N This t est was developed and its performance characteristics determined by [facility]. It has not been cleared or approved by the U.S. Food and Drug Administration. Tox Results Reviewed date:09/05/2024 02:41:42 PM Interpretation: Performing Lab: Notes/Report: meriUrine Drug Screen (confir jing by instrument) - [id number] Reviewed date:04/16/2024 02:05:17 PM Interpretation: Performing Lab: Notes/Report: Reason For Referral No Information Medications Medication SIG (Take, Route, Frequency, Duration) Notes Start Date End Date Status HYDROcodone-Acetami nophen 10-325 MG Tablet 1 tablet as needed Orally every 8 hrs; Duration: 30 days As needed Do not exceed 3 per day Fill on 11-21-24 10/10/2024 12/21/2024 Active Aspirin *Pick strength-f orm from [facility] for eRX* Active Plavix *Pick strength-f orm from [facility] for eRX* Active Metoprolol Tartrate *Pick streng th-form from [facility] for eRX* Active methIMAzole *Pick strength-f orm from [facility] for eRX* Active Metformin *Reorder from [facility] for eRx and Interaction Alerts* Active Lisinopril *Pick strength-f orm from [facility] for eRX* Active Lipitor *Pick strength-f orm from [facility] for eRX* Active Lasix *Pick strength-f orm from [facility] for eRX* Active Isosorbide Mononitrate *Pick strength-form from [facility] for eRX* Active Buspirone *Reorder from [facility] for eRx and Interaction Alerts* Active tizanidine *Reorder from [facility] for eRx and Interaction Alerts* Active Social History Social History Additional Details Category Social Info Options Details Migrated Social History Migrated Social History Alcoholic beverages? - No, Applying for disability? - No, Currently on disability? - Yes, Drug or substance abuse? - No, exposure to toxins/poisonous substances at work - No, I am interested in quitting. - No, If yes, frequency of alcoholic beverages - 1 drink per day, Marital Status - , Nonprescription drug use? - No, Participation in detoxification or rehabilitation - No, Smoked in the past? - No, Smoking - 1 PPD, Smoking status (MU) - <BLANK>, Working currently? - No Problems Problem Type SNOMED Code ICD Code Onset Dates Problem Status W/U Status Risk Notes Problem Obesity (694864043) Obesity, unspecified (E66.9) 10/12/19 Active confirmed Problem Chronic pain syndrome (079201508) Chronic pain syndrome (G89.4) 10/12/19 Active confirmed Problem Lumbosacral spondylosis without myelopathy (73783672) Other spondylosis with radiculopathy, lumbosacral region (M47.27) 10/12/19 Active confirmed Problem Degeneration of lumbar intervertebral disc (87173905) Other intervertebral disc degeneration, lumbar region (M51.36) 10/12/19 Active confirmed Problem Abnormal gait (68999839) Unspecified abnormalities of gait and mobility (R26.9) 10/12/19 Active confirmed Problem High risk drug monitoring status (555717466) 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) 10/12/19 Active confirmed Problem Lumbosacral radiculopathy (5592468) L-S radiculopathy (M54.17) Active confirmed Problem Lumbosacral spondylosis (748025634) Lumbosacral spondylosis (M47.817) Active confirmed Vital Signs Height-cm 165.10 cm 10/10/2024 Weight-kg 88.45 kg 10/10/2024 Height 65.00 in 10/10/2024 Weight 195 lbs 10/10/2024 BMI 32.45 kg/m2 10/10/2024 Encounters Encounter Location Date Provider Diagnosis Count Includes [facility] [address] [address] 02/22/2024 Nelli Ling Count Includes [facility] [address] [address] 04/11/2024 Nelli Ling Chronic pain syndrom e G89.4 ; Degeneration of intervertebral disc of lumbar region with discogenic back pain M51.360 ; L-S radiculopathy M54.17 ; Lumbosacral spondylosis M47.817 and 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 Z79.891 Count Includes [facility] [address] [address] 06/20/2024 Nelli Ling Chronic pain syndrom e G89.4 ; Degeneration of intervertebral disc of lumbar region with discogenic back pain M51.360 ; L-S radiculopathy M54.17 ; Lumbosacral spondylosis M47.817 and 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 Z79.891 Count Includes [facility] [address] [place] [address] 08/28/2024 Marco Covington Chronic pain syndrom e G89.4 ; Degeneration of intervertebral disc of lumbar region with discogenic back pain M51.360 ; L-S radiculopathy M54.17 ; long-term (current) use of opiate analgesic Z79.891 and Lumbosacral spondylosis M47.817 Count Includes [facility] [address] [place] [address] 10/10/2024 Nelli Ling Chronic pain syndrom e G89.4 ; Degeneration of intervertebral disc of lumbar region with discogenic back pain M51.360 ; L-S radiculopathy M54.17 ; long-term (current) use of opiate analgesic Z79.891 ; Lumbosacral spondylosis M47.817 and Chronic prescription opiate use Z79.891 Migrated_Facility 0 0 02/17/2024 Provider Migration Migrated[facility]Facility 0 0 02/18/2024 Provider Migration Count Includes [facility] [address] [address] 04/11/2024 Marco Covington Assessments Encounter Date Diagnosis (ICD Code) Assessment Notes Treatment Notes Treatment Clinical Notes Section Notes 04/11/2024 Chronic pain syndrome (ICD-10 - G89.4) I had a nice discussion with the patient today regarding her chronic pain complaints. She is doing reasonably well on her current medication regimen. She recently lost her brother which she feels was due to a AAA rupture. She states that she had a grafted but it he had a large mass there and he was told something like that may happen. She states he was walking and fell and did not get up. On the day that he she decided to quit smoking. She also has an aortic aneurysm and does not want to do anything to cause it to get bigger. It is now been 21 days since she quit smoking. She states she is utilizing the nicotine patches but is trying to step down accordingly. She is very proud of herself for not smoking. She denies any other changes since we last seen her any untoward side effects of the medication. She will continue her medication at present level and return to clinic in 2 months to monitor for treatment effectiveness and compliance. 06/20/2024 Chronic pain syndrome (ICD-10 - G89.4) I had a nice discussion with the patient today regarding her chronic pain complaints. She is doing reasonably well on her current medication regimen. She states she did have a heart cath and was told she has 40% blockage in her maker but it was not enough to stent. They are going to watch this. She has another checkup for her aorta soon and will keep us updated on that. Last visit she reported that she had quit smoking due to the loss of her brother which she feels was due to a ruptured AAA. This was kind of a wake-up call for her and she quit smoking cold turkey and states it is now been more than 3 months since she is smoked. She recently started on Ozempic to help with her blood sugar as well as weight loss. She is tolerating this okay so far. She denies any other changes since we last seen her any untoward side effects of the medication. She feels her medication allows her to function better overall so she will continue that at present level. She will return to clinic in 2 months to monitor for treatment effectiveness and compliance as well as for biannual appointment with Dr. Covington. URINE TESTING TODAY; POINT OF SERVICE Urine drug screening will be performed today to monitor compliance with opioid therapy or to serve as a baseline screen for a patient who may be a candidate for opioid therapy in the future, pending UDS results. We will monitor with in-office testing (rapid testing) today and review the results prior to dispensing prescription, as well. Patient has been made aware of this policy. The patient continues with chronic pain requiring treatment to help restore function and improve quality of life. Risks of opioid therapy as well as interaction of opioids with alcohol, illicit drugs, muscle relaxers, and other sedative medications are reviewed briefly with patient again today. The patient has trialed all other reasonable treatment options and uses the medication to alleviate pain in order to remain active and rest with less pain. No clinically relevant medication side effects are noted. Last UDS and [place] TRANSIT MANAGER reviewed today. Patient is advised that best long-term goals include increased activity, core strengthening, proper weight management, coping strategies, avoidance of painful triggers, and targeted interventional therapy. We will see the patient for routine follow up in accordance with all clinic policies. We did remind patient today of current guidelines to decrease opioid when possible. We will continue to stress nonopioid treatment. 08/28/2024 Chronic pain syndrome (ICD-10 - G89.4) I had a nice visit with the patient today regarding her chronic pain issues. Overall, she seems to be doing much better, she quit smoking and had her aorta stent graft placed and it sounds like she had some other stents completed. I'm not sure exactly what she's done, but she has lost some weight with her prior Ozempic use. So, overall she's doing better, we will cut down on her pain medications and see her back in 7 weeks. 08/28/2024 Degeneration of intervertebral disc of lumbar region with discogenic back pain (ICD-10 - M51.360) 10/10/2024 Chronic pain syndrome (ICD-10 - G89.4) I had a nice discussion with the patient today regarding her chronic pain complaints. She continues with lower back pain as well as radicular symptoms but feels she is overall doing better lately. She was able to come down on her hydrocodone to 3/day and states she is doing pretty well with that. She continues to try to walk is much as she can and feels like that is helping some as well. She is still not smoking which is a big accomplishment in itself. She denies any other changes since we last seen her any untoward side effects of medication. I did discuss lifestyle modifications as well as a bowel regimen with the patient. She will continue her medication at present level and return to clinic in 2 months to monitor for treatment effectiveness and compliance. The patient continues with chronic pain requiring treatment to help restore function and improve quality of life. Risks of opioid therapy as well as interaction of opioids with alcohol, illicit drugs, muscle relaxers, and other sedative medications are reviewed briefly with patient again today. The patient has trialed all other reasonable treatment options and uses the medication to alleviate pain in order to remain active and rest with less pain. No clinically relevant medication side effects are noted. Last UDS and [place] TRANSIT MANAGER reviewed today. Patient is advised that best long-term goals include increased activity, core strengthening, proper weight management, coping strategies, avoidance of painful triggers, and targeted interventional therapy. We will see the patient for routine follow up in accordance with all clinic policies. We did remind patient today of current guidelines to decrease opioid when possible. We will continue to stress nonopioid treatment. URINE TESTING TODAY; POINT OF SERVICE Urine drug screening will be performed today to monitor compliance with opioid therapy or to serve as a baseline screen for a patient who may be a candidate for opioid therapy in the future, pending UDS results. We will monitor with in-office testing (rapid testing) today and review the results prior to dispensing prescription, as well. Patient has been made aware of this policy. 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 (ICD-10 - Z79.891) 10/10/2024 L-S radiculopathy (ICD-10 - M54.17) 04/11/2024 Lumbosacral spondylosis (ICD-10 - M47.817) 10/10/2024 long-term (current) use of opiate analgesic (ICD-10 - Z79.891) 08/28/2024 Lumbosacral spondylosis (ICD-10 - M47.817) 06/20/2024 Lumbosacral spondylosis (ICD-10 - M47.817) 04/11/2024 long-term (current) use of opiate analgesic (ICD-10 - Z79.891) 06/20/2024 long-term (current) use of opiate analgesic (ICD-10 - Z79.891) 10/10/2024 Lumbosacral spondylosis (ICD-10 - M47.817) 10/10/2024 Chronic prescription opiate use (ICD-10 - Z79.891) URINE TESTING TODAY; POINT OF SERVICE Urine drug screening will be performed today to monitor compliance with opioid therapy or to serve as a baseline screen for a patient who may be a candidate for opioid therapy in the future, pending UDS results. We will monitor with in-office testing (rapid testing) today and review the results prior to dispensing prescription, as well. Patient has been made aware of this policy. 08/28/2024 Other I, ANDERS Boo, am scribing for Dr. Marco Covington. I, Dr. Marco Covington, personally performed the services described in this documentation, as scribed by ANDERS Boo , and it is both accurate and complete. Plan Of Treatment Pending Test Test Name Order Date Urine Drug Screen (cup read) - [id number] Next Appt Details Provider Name:Nelli stallworth, 12/12/2024 12:40:00 PM, [address] [place], [address], Insurance Providers Payer Name Payer Address Payer Phone Subscriber Number Group Number Insured Name Patient Relationship to Insured Coverage Start Date Coverage End Date [facility] [employer] [address] [place] [address] [id number] Falguni Bond Self - patient is the insured [place] Medicare [address] [address] [place] [address] [id number] Falguni Bond Self - patient is the insured [place] Medicaid [address] [place] [address] [id number] Falguni Bond Self - patient is the insured Medical (General) History Medical History History ICD Code hypertension Diabetes Heart attack Arthritis Measles mumps Rubella obesity Surgical History Surgery Date(Month/Year) Appendectomy Cardiac Stent Hysterectomy
--- NOTE | 2024-12-06 18:33 | XRR_ITS ---
PROCEDURE INFORMATION: Exam: XR Left Hip Exam date and time: 12/06/2024 7:01 PM Age: 74 years old Clinical indication: Injury or trauma; Fall; Blunt trauma (contusions or hematomas); Left; Hip; Additional info: Fall/hip pain, w/ pelvis TECHNIQUE: Imaging protocol: Radiologic exam of the left hip. Views: 2 or 3 views hip with pelvis when performed. COMPARISON: CT angio abdomen pelvis [id number] 10/16/2023 9:02 AM FINDINGS: Tubes, catheters and devices: Vascular stents and embolization coils project over the pelvis. Bones/joints: Diffuse osteopenia. Moderate narrowing of bilateral hip joints and degenerative changes within pubic symphysis. New lineNo acute displaced fracture or dislocation. Soft tissues: Unremarkable. XR/XR hip LT 2-3V wo/w pel* [id number] IMPRESSION: No acute displaced fracture or dislocation.
--- NOTE | 2024-12-06 18:33 | XRR_ITS ---
PROCEDURE INFORMATION: Exam: XR Left Ribs Exam date and time: 12/06/2024 6:55 PM Age: 74 years old Clinical indication: Injury or trauma; Fall; Rib area, left side; Blunt trauma TECHNIQUE: Imaging protocol: Radiologic exam of the left ribs. Views: 2 views. COMPARISON: CR XR chest 1V portable [id number] 08/22/2024 5:15 AM FINDINGS: Bones/joints: No acute displaced fractures identified. Soft tissues: Normal. XR/XR ribs LT 2V* [id number] IMPRESSION: No acute displaced fracture or dislocation.
--- NOTE | 2024-12-06 20:46 | W.ED.GENADLT ---
Documented by User: ISAMAR Queen 12/06/24 20:50 HPI - General Adult General: Chief complaint: General Medical Stated complaint: fell on l side Time Seen by Provider: 12/06/24 18:19 Source: patient Mode of arrival: ambulatory Limitations: no limitations History of Present Illness: Patient is a 74-year-old female who presents the emergency department for a fall that occurred just prior to arrival. She states that she tripped over her cat and fell onto her left hip and ribs. States that the pain is minor, she does not want any pain medications, she is just here to get checked out and make sure she does not have any fractured ribs. She has been ambulatory since this occurred, notes ecchymosis of her left hip. Reporting the pain a 4/10. She did not hit her head or lose consciousness, was able to get up on her own power after the fall occurred. No shortness of breath or chest pain at this time. MD complaint: Fall/left rib pain/left hip pain Onset (ago): hour(s) Location: chest, pelvis and left Severity scale (1-10): 4 Associated symptoms: Deny chest pain, dyspnea, headache(s), nausea, rash or vomiting Treatments prior to arrival: none Related Data Home Medications ?Medication ?Instructions ?Recorded ?Confirmed aspirin 81 mg tablet,delayed 81 mg PO QAM 04/19/19 12/02/24 release calcium 500 mg (as 1 tab PO QAM 04/19/19 12/02/24 carbonate)-vitamin D3 3.125 mcg (125 unit) tablet vitamins A,C,V-qlyp-mjrxfe 4,296 1 cap PO DAILY 04/19/19 12/02/24 mcg-226 mg-90 mg capsule (Healthy Eyes SuperVision) cyanocobalamin (vitamin B-12) 2,500 mcg PO DAILY 09/25/23 12/02/24 2,500 mcg tablet allopurinol 100 mg tablet 100 mg PO DAILY 08/22/24 12/02/24 atorvastatin 80 mg tablet 80 mg PO DAILY 08/22/24 12/02/24 clopidogrel 75 mg tablet 75 mg PO QAM 08/22/24 12/02/24 isosorbide mononitrate 60 mg 60 mg PO DAILY 08/22/24 12/02/24 tablet,extended release 24 hr lisinopril 5 mg tablet 5 mg PO BEDTIME 08/22/24 12/02/24 methimazole 5 mg tablet 5 mg PO DAILY 08/22/24 12/02/24 metoprolol succinate 25 mg 25 mg PO QAM 08/22/24 12/02/24 tablet,extended release 24 hr hydrocodone 10 mg-acetaminophen 1 tab PO Q6H PRN 08/30/24 12/02/24 325 mg tablet Previous Rx's ?Medication ?Instructions ?Recorded nitroglycerin 0.4 mg sublingual See Rx Instructions .Route 11/18/22 tablet .COMPLEX #25 tabs blood sugar diagnostic (Blood #200 ea 03/30/23 Glucose Test strips) blood-glucose meter #1 ea 03/30/23 lancets #200 ea 03/30/23 prednisone 10 mg tablets in a dose See Rx Instructions PO PER PKG DIR 08/30/24 pack #21 ea semaglutide 0.25 mg/0.05 mL 0.5 mg (0.1 mL) SUBCUT .weekly 10/29/24 subcutaneous syringe #0.2 mL triamcinolone acetonide 0.1 % 1 applic topical BID 14 days #80 10/30/24 topical cream grams cetirizine 10 mg tablet See Rx Instructions .Route 11/03/24 .COMPLEX #30 tabs dapagliflozin propanediol 10 mg See Rx Instructions .Route 11/03/24 tablet (Farxiga) .COMPLEX #30 tabs buspirone 10 mg tablet See Rx Instructions .Route 11/08/24 .COMPLEX #60 tabs furosemide 40 mg tablet See Rx Instructions .Route 11/08/24 .COMPLEX #90 tabs isosorbide mononitrate 60 mg See Rx Instructions .Route 11/08/24 tablet,extended release 24 hr .COMPLEX #30 tabs metformin 1,000 mg tablet See Rx Instructions .Route 11/08/24 .COMPLEX #200 tabs nitrofurantoin 100 mg PO Q12H 7 days #14 caps 12/02/24 monohydrate/macrocrystals 100 mg capsule (Macrobid) Allergies Allergy/AdvReac Type Severity Reaction Status Date / Time ciprofloxacin (From Cipro) Allergy ALGY-Swell Verified 12/02/24 15:32 Lip/Tongue/Throat codeine Allergy CONVULSIONS Verified 12/02/24 15:32 Penicillins Allergy CONVULSIONS Verified 12/02/24 15:32 neomycin AdvReac Unknown Verified 12/02/24 15:32 zonisamide (From Zonegran) AdvReac FEELS WEIRD Verified 12/02/24 15:32 Review of Systems General: Reports: 10 or more systems reviewed and unremarkable except in HPI and below Const: Reports: other (fall); Denies: fever(s) or chills Card: Denies: chest pain Resp: Denies: dyspnea or productive cough GI: Denies: abdominal pain, nausea, vomiting or diarrhea : Denies: flank pain Musc: Reports: joint pain (Left hip) and other (Left rib pain); Denies: neck pain, back pain, extremity pain, extremity swelling, joint swelling, joint redness, joint warmth, limited range of motion or muscle weakness Skin/Breast: Denies: rash Neuro: Denies: headache(s), numbness in extremities or weakness in extremities PFSH ED PFSH: Medical History Traumatic hematoma of left wrist Acute pain of left wrist Screening for breast cancer Generalized osteoarthritis Essential hypertension Coronary artery disease Type 2 diabetes mellitus without complications Encounter for long-term opiate analgesic use Abdominal aortic aneurysm Pain management contract signed Spastic dysphonia Tremor DDD (degenerative disc disease), lumbar Displacement of intervertebral disc of lumbar region Long-term use of high-risk medication Lumbar radiculitis Lumbar spine pain Neck pain Primary osteoarthritis Spondylosis Tobacco use Surgical History S/P hysterectomy S/P cholecystectomy S/P appendectomy Status post coronary artery stent placement Family History Brother CAD (coronary artery disease) Hypertension Grandmother Diabetes Other Hyperlipidemia Social History Smoking and tobacco/nicotine status: never used tobacco/nicotine Quit status (tobacco/nicotine): considering quitting Alcohol intake: never Substance/Drug Use: never Adopted: No Caregiver/support person: No Lives independently: Yes Household members: spouse Physical Exam Const: COMMON NORMALS: no acute distress, patient oriented x3, no limitations, healthy appearing, alert and well nourished HENMT: COMMON NORMALS: normocephalic and atraumatic HEAD & SCALP: normocephalic and atraumatic Neck/C-Spine: COMMON NORMALS: full ROM, supple and no meningeal signs Chest: COMMONS NORMALS: normal inspection of the chest and normal palpation of entire chest wall OTHER: No ecchymosis to the left lateral chest, no significant tenderness to palpation. No step-off deformity of the ribs. No flail chest or paradoxical breathing. Resp: COMMON NORMALS: normal respiratory effort, No use of accessory muscles and clear to auscultation bilaterally AUSCULTATION: clear to auscultation bilaterally Cardio: COMMON NORMALS: regular rate and regular rhythm RATE: regular rate RHYTHM: regular rhythm Extremity: COMMON NORMALS: full ROM, capillary refill normal, no joint enlargement and no clubbing, cyanosis or edema NARRATIVE EXTREMITY EXAM: Ecchymosis to left lateral hip. Negative tenderness to palpation, full range of motion of the hip. Gait normal. Neuro: COMMON NORMALS: patient oriented x3, moves all extremities, no focal motor deficits and no sensory deficits noted SENSORIUM/ORIENTATION: Yes alert MENINGEAL SIGNS: Yes no meningeal signs Skin: COMMON NORMALS: no rashes or lesions noted GENERAL SKIN EXAM: no rashes or lesions noted Course Vital Signs: Vital signs: Vital Signs Temperature 97.8 F 12/06/24 18:10 Pulse Rate 65 12/06/24 18:10 Respiratory Rate 16 12/06/24 18:10 Blood Pressure 115/68 12/06/24 18:10 Pulse Oximetry 94 12/06/24 18:10 Oxygen Delivery Me thod Room Air 12/06/24 18:10 MDM - General Adult Medical Decision Making Patient presented for a fall, tripped over her cat. No head injury or loss of consciousness, was able to get up immediately after. She is on a blood thinner. Mild pain reported, there was no significant signs of trauma to the rib cage on exam, and ecchymosis noted to the left lateral hip on exam though she has been ambulating normally. Denied pain medications, states she takes hydrocodone at home. Her x-rays were unremarkable, no rib fracture and no hip pathology. She is informed of these findings, is ready to go home and she is informed of return precautions. Lab Data Radiology Impressions Hip/Pelvis X-Ray 12/06/24 18:33 IMPRESSION: No acute displaced fracture or dislocation. Ribs X-Ray 12/06/24 18:33 IMPRESSION: No acute displaced fracture or dislocation. All radiology interpretation(s) finalized by discharge Discharge Plan Discharge Patient Disposition: Home Clinical Impression: Fall Qualifiers: Encounter type: initial encounter Qualified Code(s): W19.XXXA - Unspecified fall, initial encounter Contusion of rib on left side Qualifiers: Encounter type: initial encounter Qualified Code(s): S29.8XXA - Other specified injuries of thorax, initial encounter Contusion of hip, left Qualifiers: Encounter type: initial encounter Qualified Code(s): S70.02XA - Contusion of left hip, initial encounter Condition: Stable Prescriptions: No Action aspirin 81 mg tablet,delayed release (DR/EC) 81 mg PO QAM calcium carbonate-vitamin D3 500 mg(1,250mg) -125 unit tablet 1 tab PO QAM Healthy Eyes SuperVision [id number] jzax-vr-rfde capsule 1 cap PO DAILY nitrofurantoin monohyd/m-cryst [Macrobid] 100 mg capsule 100 mg PO Q12H 7 Days Qty: 14 0RF Rx Instructions: must administer with a meal/food (DME) blood-glucose meter Misc See Rx Instructions .MEDSUPPLY Qty: 1 0RF Rx Instructions: Use as directed for checking blood sugar (DME) Blood Glucose Test Strip See Rx Instructions .MEDSUPPLY Qty: 200 12RF Rx Instructions: Use as directed with glucometer to check blood sugar (DME) lancets Misc See Rx Instructions .MEDSUPPLY Qty: 200 12RF Rx Instructions: Use as directed to prick skin for blood sugar checks cyanocobalamin (vitamin B-12) 2,500 mcg tablet 2,500 mcg PO DAILY hydrocodone-acetaminophen 10-325 mg tablet 1 tab PO Q6H PRN prednisone 10 mg tablets,dose pack See Rx Instructions PO PER PKG DIR Qty: 21 0RF Rx Instructions: PO PER PKG DIR triamcinolone acetonide 0.1 % cream 1 applic topical BID 14 Days Qty: 80 0RF nitroglycerin 0.4 mg tablet, sublingual See Rx Instructions .ROUTE .COMPLEX Qty: 25 11RF Dose Instruction: DISSOLVE 1 TABLET UNDER THE TONGUE EVERY 5 MINUTES NEEDED FOR CHEST PAIN. DO NOT EXCEED A TOTAL OF 3 DOSES IN 15 MINUTES. Rx Instructions: DISSOLVE 1 TABLET UNDER THE TONGUE EVERY 5 MINUTES NEEDED FOR CHEST PAIN. DO NOT EXCEED A TOTAL OF 3 DOSES IN 15 MINUTES. semaglutide 0.25 mg/0.05 mL syringe 0.5 mg SUBCUT .weekly Qty: 0.2 2RF cetirizine 10 mg tablet See Rx Instructions .ROUTE .COMPLEX Qty: 30 5RF Dose Instruction: TAKE 1 TABLET BY MOUTH EVERY DAY NEEDED FOR ALLERGY SYMPTOMS Rx Instructions: TAKE 1 TABLET BY MOUTH EVERY DAY NEEDED FOR ALLERGY SYMPTOMS dapagliflozin propanediol [Farxiga] 10 mg tablet See Rx Instructions .ROUTE .COMPLEX Qty: 30 1RF Dose Instruction: TAKE ONE TABLET BY MOUTH DAILY Rx Instructions: TAKE ONE TABLET BY MOUTH DAILY buspirone 10 mg tablet See Rx Instructions .ROUTE .COMPLEX Qty: 60 3RF Dose Instruction: TAKE 1 TABLET BY MOUTH TWICE DAILY Rx Instructions: TAKE 1 TABLET BY MOUTH TWICE DAILY isosorbide mononitrate 60 mg tablet extended release 24 hr See Rx Instructions .ROUTE .COMPLEX Qty: 30 3RF Dose Instruction: TAKE 1 TABLET BY MOUTH DAILY Rx Instructions: TAKE 1 TABLET BY MOUTH DAILY metformin 1,000 mg tablet See Rx Instructions .ROUTE .COMPLEX Qty: 200 1RF Dose Instruction: TAKE 1 TABLET BY MOUTH TWICE DAILY Rx Instructions: TAKE 1 TABLET BY MOUTH TWICE DAILY furosemide 40 mg tablet See Rx Instructions .ROUTE .COMPLEX Qty: 90 3RF Dose Instruction: Take 1 tablet by mouth daily Rx Instructions: Take 1 tablet by mouth daily allopurinol 100 mg tablet 100 mg PO DAILY atorvastatin 80 mg tablet 80 mg PO DAILY clopidogrel 75 mg tablet 75 mg PO QAM isosorbide mononitrate 60 mg tablet extended release 24 hr 60 mg PO DAILY methimazole 5 mg tablet 5 mg PO DAILY lisinopril 5 mg tablet 5 mg PO BEDTIME metoprolol succinate 25 mg tablet extended release 24 hr 25 mg PO QAM Discharge Orders: Discharge ED (Routine); Ordered 12/06/24 Ordered By: Robert Jarvis Referrals: Emely Butler FNP [Primary Care Provider, Family Practice] Patient Instructions: Patient Portal & [facility] Instructions Activity Restrictions/Additional Instructions: Geriatric Fall Discharge Instructions Discharge Instructions: 74-Year-Old Female, Post-Fall (Left Rib and Hip Pain, on Anticoagulant) Summary of ED Course: - Presented after a fall, with left rib and left hip pain. - No head trauma reported. - X-rays of left hip, pelvis, and ribs: no acute findings. - Declined additional pain medications in ED; instructed to continue previously prescribed hydrocodone as usual. --- 1. Activity and Mobility - Encourage early mobilization as tolerated to reduce risk of complications from bedrest, such as deconditioning and functional decline. - Assess ability to perform activities of daily living (ADLs): getting out of bed/chair, dressing, bathing, meal preparation, shopping. If deficits are present, consider referral to physical therapy (PT) or occupational therapy (OT). - Use assistive devices (cane, walker) if needed for safe ambulation. - Avoid high-risk activities (e.g., climbing ladders, walking on uneven surfaces) until fully recovered. 2. Pain Management - Continue previously prescribed hydrocodone as directed. Monitor for side effects: sedation, constipation, confusion, respiratory depression. Use lowest effective dose. - Acetaminophen is first-line for mild pain, but in patients >80 years, maximum daily dose should be reduced to 2,000 mg; consider hepatic function and nutritional status. - Avoid NSAIDs due to increased risk of gastrointestinal bleeding, especially in patients on anticoagulation. - Non-pharmacologic measures: ice packs, heat, gentle stretching, and positioning for comfort. 3. Anticoagulation and Bleeding Risk - Continue anticoagulant therapy as prescribed. The [place] [employer] recommends that, in most cases, the benefits of anticoagulation outweigh the risks of bleeding, even in patients at risk for falls. - Monitor for signs of bleeding: new bruising, hematuria, melena, hematemesis, or increased pain/swelling at injury sites. - If any signs of bleeding or neurological symptoms (e.g., sudden headache, confusion, weakness, slurred speech) develop, seek immediate medical attention. 4. Fall Prevention - Review home environment for hazards: remove loose rugs, improve lighting, install grab bars in bathroom, ensure clear pathways. - Consider a home safety evaluation, especially if recurrent falls or functional deficits are present. - Optimize management of chronic conditions (e.g., diabetes, hypertension, osteoporosis, depression) and vision/hearing correction. - Review medications for those that may increase fall risk; minimize polypharmacy when possible. 5. Follow-Up and Monitoring - Schedule follow-up with primary care provider within 1 week to reassess pain, mobility, and functional status, and to review anticoagulation management. - If new symptoms arise (e.g., worsening pain, inability to bear weight, fever, confusion), seek prompt evaluation. - If unable to perform basic ADLs independently, arrange for additional support at home or consider referral for home health services. 6. Education and Support - Provide tailored fall prevention education to patient and caregivers, emphasizing the importance of safe mobility, medication adherence, and environmental modifications. - Encourage regular physical activity as tolerated to improve strength and balance. - Engage family or support network in monitoring and assisting with daily activities as needed. --- [place]: - Early mobilization and functional assessment are critical to recovery and prevention of complications. - Continue anticoagulation unless contraindicated; monitor closely for bleeding. - Use hydrocodone cautiously; avoid NSAIDs. - Implement fall prevention strategies and schedule timely follow-up. 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 Fwd Documented by User: Jasper Marks, 12/07/24 02:14 HPI - General Adult General: Chief complaint: General Medical Stated complaint: fell on l side Time Seen by Provider: 12/06/24 18:19 Related Data Home Medications ?Medication ?Instructions ?Recorded ?Confirmed aspirin 81 mg tablet,delayed 81 mg PO [facility] 04/19/19 12/02/24 release calcium 500 mg (as 1 tab PO QA 04/19/19 12/02/24 carbonate)-vitamin D3 3.125 mcg (125 unit) tablet vitamins A,C,O-qbit-pfgweg 4,296 1 cap PO DAILY 04/19/19 12/02/24 mcg-226 mg-90 mg capsule (Healthy Eyes SuperVision) cyanocobalamin (vitamin B-12) 2,500 mcg PO DAILY 09/25/23 12/02/24 2,500 mcg tablet allopurinol 100 mg tablet 100 mg PO DAILY 08/22/24 12/02/24 atorvastatin 80 mg tablet 80 mg PO DAILY 08/22/24 12/02/24 clopidogrel 75 mg tablet 75 mg PO QAM 08/22/24 12/02/24 isosorbide mononitrate 60 mg 60 mg PO DAILY 08/22/24 12/02/24 tablet,extended release 24 hr lisinopril 5 mg tablet 5 mg PO BEDTIME 08/22/24 12/02/24 methimazole 5 mg tablet 5 mg PO DAILY 08/22/24 12/02/24 metoprolol succinate 25 mg 25 mg PO QAM 08/22/24 12/02/24 tablet,extended release 24 hr hydrocodone 10 mg-acetaminophen 1 tab PO Q6H PRN 08/30/24 12/02/24 325 mg tablet Previous Rx's ?Medication ?Instructions ?Recorded nitroglycerin 0.4 mg sublingual See Rx Instructions .Route 11/18/22 tablet .COMPLEX #25 tabs blood sugar diagnostic (Blood #200 ea 03/30/23 Glucose Test strips) blood-glucose meter #1 ea 03/30/23 lancets #200 ea 03/30/23 prednisone 10 mg tablets in a dose See Rx Instructions PO PER PKG DIR 08/30/24 pack #21 ea semaglutide 0.25 mg/0.05 mL 0.5 mg (0.1 mL) SUBCUT .weekly 10/29/24 subcutaneous syringe #0.2 mL triamcinolone acetonide 0.1 % 1 applic topical BID 14 days #80 10/30/24 topical cream grams cetirizine 10 mg tablet See Rx Instructions .Route 11/03/24 .COMPLEX #30 tabs dapagliflozin propanediol 10 mg See Rx Instructions .Route 11/03/24 tablet (Farxiga) .COMPLEX #30 tabs buspirone 10 mg tablet See Rx Instructions .Route 11/08/24 .COMPLEX #60 tabs furosemide 40 mg tablet See Rx Instructions .Route 11/08/24 .COMPLEX #90 tabs isosorbide mononitrate 60 mg See Rx Instructions .Route 11/08/24 tablet,extended release 24 hr .COMPLEX #30 tabs metformin 1,000 mg tablet See Rx Instructions .Route 11/08/24 .COMPLEX #200 tabs nitrofurantoin 100 mg PO Q12H 7 days #14 caps 12/02/24 monohydrate/macrocrystals 100 mg capsule (Macrobid) Allergies Allergy/AdvReac Type Severity Reaction Status Date / Time ciprofloxacin (From Cipro) Allergy ALGY-Swell Verified 12/02/24 15:32 Lip/Tongue/Throat codeine Allergy CONVULSIONS Verified 12/02/24 15:32 Penicillins Allergy CONVULSIONS Verified 12/02/24 15:32 neomycin AdvReac Unknown Verified 12/02/24 15:32 zonisamide (From Zonegran) AdvReac FEELS WEIRD Verified 12/02/24 15:32 PFSH ED PFSH: Medical History Traumatic hematoma of left wrist Acute pain of left wrist Screening for breast cancer Generalized osteoarthritis Essential hypertension Coronary artery disease Type 2 diabetes mellitus without complications Encounter for long-term opiate analgesic use Abdominal aortic aneurysm Pain management contract signed Spastic dysphonia Tremor DDD (degenerative disc disease), lumbar Displacement of intervertebral disc of lumbar region Long-term use of high-risk medication Lumbar radiculitis Lumbar spine pain Neck pain Primary osteoarthritis Spondylosis Tobacco use Surgical History S/P hysterectomy S/P cholecystectomy S/P appendectomy Status post coronary artery stent placement Family History Brother CAD (coronary artery disease) Hypertension Grandmother Diabetes Other Hyperlipidemia Social History Smoking and tobacco/nicotine status: never used tobacco/nicotine Quit status (tobacco/nicotine): considering quitting Alcohol intake: never Substance/Drug Use: never Adopted: No Caregiver/support person: No Lives independently: Yes Household members: spouse Course Vital Signs: Vital signs: Vital Signs Temperature 97.8 F 12/06/24 18:10 Pulse Rate 65 12/06/24 18:10 Respiratory Rate 16 12/06/24 18:10 Blood Pressure 115/68 12/06/24 18:10 Pulse Oximetry 94 12/06/24 18:10 Oxygen Delivery Me thod Room Air 12/06/24 18:10 MDM - General Adult Medical Decision Making Patient presented for a fall, tripped over her cat. No head injury or loss of consciousness, was able to get up immediately after. She is on a blood thinner. Mild pain reported, there was no significant signs of trauma to the rib cage on exam, and ecchymosis noted to the left lateral hip on exam though she has been ambulating normally. Denied pain medications, states she takes hydrocodone at home. Her x-rays were unremarkable, no rib fracture and no hip pathology. She is informed of these findings, is ready to go home and she is informed of return precautions. This patient was originally seen by Mr. Simona PA-C. I agree with his history, evaluation, and management. Lab Data Radiology Impressions Hip/Pelvis X-Ray 12/06/24 18:33 IMPRESSION: No acute displaced fracture or dislocation. Ribs X-Ray 12/06/24 18:33 IMPRESSION: No acute displaced fracture or dislocation. Discharge Plan Discharge Patient Disposition: Home Clinical Impression: Fall Qualifiers: Encounter type: initial encounter Qualified Code(s): W19.XXXA - Unspecified fall, initial encounter Contusion of rib on left side Qualifiers: Encounter type: initial encounter Qualified Code(s): S29.8XXA - Other specified injuries of thorax, initial encounter Contusion of hip, left Qualifiers: Encounter type: initial encounter Qualified Code(s): S70.02XA - Contusion of left hip, initial encounter Condition: Stable Prescriptions: No Action aspirin 81 mg tablet,delayed release (DR/EC) 81 mg PO QAM calcium carbonate-vitamin D3 500 mg(1,250mg) -125 unit tablet 1 tab PO QAM Healthy Eyes SuperVision [id number] bkmv-tq-bilj capsule 1 cap PO DAILY nitrofurantoin monohyd/m-cryst [Macrobid] 100 mg capsule 100 mg PO Q12H 7 Days Qty: 14 0RF Rx Instructions: must administer with a meal/food (DME) blood-glucose meter Mis See Rx Instructions .MEDSUPPLY Qty: 1 0RF Rx Instructions: Use as directed for checking blood sugar (DME) Blood Glucose Test Strip See Rx Instructions .MEDSUPPLY Qty: 200 12RF Rx Instructions: Use as directed with glucometer to check blood sugar (DME) lancets Misc See Rx Instructions .MEDSUPPLY Qty: 200 12RF Rx Instructions: Use as directed to prick skin for blood sugar checks cyanocobalamin (vitamin B-12) 2,500 mcg tablet 2,500 mcg PO DAILY hydrocodone-acetaminophen 10-325 mg tablet 1 tab PO Q6H PRN prednisone 10 mg tablets,dose pack See Rx Instructions PO PER PKG DIR Qty: 21 0RF Rx Instructions: PO PER PKG DIR triamcinolone acetonide 0.1 % cream 1 applic topical BID 14 Days Qty: 80 0RF nitroglycerin 0.4 mg tablet, sublingual See Rx Instructions .ROUTE .COMPLEX Qty: 25 11RF Dose Instruction: DISSOLVE 1 TABLET UNDER THE TONGUE EVERY 5 MINUTES NEEDED FOR CHEST PAIN. DO NOT EXCEED A TOTAL OF 3 DOSES IN 15 MINUTES. Rx Instructions: DISSOLVE 1 TABLET UNDER THE TONGUE EVERY 5 MINUTES NEEDED FOR CHEST PAIN. DO NOT EXCEED A TOTAL OF 3 DOSES IN 15 MINUTES. semaglutide 0.25 mg/0.05 mL syringe 0.5 mg SUBCUT .weekly Qty: 0.2 2RF cetirizine 10 mg tablet See Rx Instructions .ROUTE .COMPLEX Qty: 30 5RF Dose Instruction: TAKE 1 TABLET BY MOUTH EVERY DAY NEEDED FOR ALLERGY SYMPTOMS Rx Instructions: TAKE 1 TABLET BY MOUTH EVERY DAY NEEDED FOR ALLERGY SYMPTOMS dapagliflozin propanediol [Farxiga] 10 mg tablet See Rx Instructions .ROUTE .COMPLEX Qty: 30 1RF Dose Instruction: TAKE ONE TABLET BY MOUTH DAILY Rx Instructions: TAKE ONE TABLET BY MOUTH DAILY buspirone 10 mg tablet See Rx Instructions .ROUTE .COMPLEX Qty: 60 3RF Dose Instruction: TAKE 1 TABLET BY MOUTH TWICE DAILY Rx Instructions: TAKE 1 TABLET BY MOUTH TWICE DAILY isosorbide mononitrate 60 mg tablet extended release 24 hr See Rx Instructions .ROUTE .COMPLEX Qty: 30 3RF Dose Instruction: TAKE 1 TABLET BY MOUTH DAILY Rx Instructions: TAKE 1 TABLET BY MOUTH DAILY metformin 1,000 mg tablet See Rx Instructions .ROUTE .COMPLEX Qty: 200 1RF Dose Instruction: TAKE 1 TABLET BY MOUTH TWICE DAILY Rx Instructions: TAKE 1 TABLET BY MOUTH TWICE DAILY furosemide 40 mg tablet See Rx Instructions .ROUTE .COMPLEX Qty: 90 3RF Dose Instruction: Take 1 tablet by mouth daily Rx Instructions: Take 1 tablet by mouth daily allopurinol 100 mg tablet 100 mg PO DAILY atorvastatin 80 mg tablet 80 mg PO DAILY clopidogrel 75 mg tablet 75 mg PO QAM isosorbide mononitrate 60 mg tablet extended release 24 hr 60 mg PO DAILY methimazole 5 mg tablet 5 mg PO DAILY lisinopril 5 mg tablet 5 mg PO BEDTIME metoprolol succinate 25 mg tablet extended release 24 hr 25 mg PO QAM Discharge Orders: Discharge ED (Routine); Ordered 12/06/24 Ordered By: Robert Jarvis Referrals: Emely Butler FNP [Primary Care Provider, [facility]] Patient Instructions: Patient Portal & [place] Instructions Activity Restrictions/Additional Instructions: Geriatric Fall Discharge Instructions Discharge Instructions: 74-Year-Old Female, Post-Fall (Left Rib and Hip Pain, on Anticoagulant) Summary of ED Course: - Presented after a fall, with left rib and left hip pain. - No head trauma reported. - X-rays of left hip, pelvis, and ribs: no acute findings. - Declined additional pain medications in ED; instructed to continue previously prescribed hydrocodone as usual. --- 1. Activity and Mobility - Encourage early mobilization as tolerated to reduce risk of complications from bedrest, such as deconditioning and functional decline. - Assess ability to perform activities of daily living (ADLs): getting out of bed/chair, dressing, bathing, meal preparation, shopping. If deficits are present, consider referral to physical therapy (PT) or occupational therapy (OT). - Use assistive devices (cane, walker) if needed for safe ambulation. - Avoid high-risk activities (e.g., climbing ladders, walking on uneven surfaces) until fully recovered. 2. Pain Management - Continue previously prescribed hydrocodone as directed. Monitor for side effects: sedation, constipation, confusion, respiratory depression. Use lowest effective dose. - Acetaminophen is first-line for mild pain, but in patients >80 years, maximum daily dose should be reduced to 2,000 mg; consider hepatic function and nutritional status. - Avoid NSAIDs due to increased risk of gastrointestinal bleeding, especially in patients on anticoagulation. - Non-pharmacologic measures: ice packs, heat, gentle stretching, and positioning for comfort. 3. Anticoagulation and Bleeding Risk - Continue anticoagulant therapy as prescribed. The [place] [employer] recommends that, in most cases, the benefits of anticoagulation outweigh the risks of bleeding, even in patients at risk for falls. - Monitor for signs of bleeding: new bruising, hematuria, melena, hematemesis, or increased pain/swelling at injury sites. - If any signs of bleeding or neurological symptoms (e.g., sudden headache, confusion, weakness, slurred speech) develop, seek immediate medical attention. 4. Fall Prevention - Review home environment for hazards: remove loose rugs, improve lighting, install grab bars in bathroom, ensure clear pathways. - Consider a home safety evaluation, especially if recurrent falls or functional deficits are present. - Optimize management of chronic conditions (e.g., diabetes, hypertension, osteoporosis, depression) and vision/hearing correction. - Review medications for those that may increase fall risk; minimize polypharmacy when possible. 5. Follow-Up and Monitoring - Schedule follow-up with primary care provider within 1 week to reassess pain, mobility, and functional status, and to review anticoagulation management. - If new symptoms arise (e.g., worsening pain, inability to bear weight, fever, confusion), seek prompt evaluation. - If unable to perform basic ADLs independently, arrange for additional support at home or consider referral for home health services. 6. Education and Support - Provide tailored fall prevention education to patient and caregivers, emphasizing the importance of safe mobility, medication adherence, and environmental modifications. - Encourage regular physical activity as tolerated to improve strength and balance. - Engage family or support network in monitoring and assisting with daily activities as needed. --- [place]: - Early mobilization and functional assessment are critical to recovery and prevention of complications. - Continue anticoagulation unless contraindicated; monitor closely for bleeding. - Use hydrocodone cautiously; avoid NSAIDs. - Implement fall prevention strategies and schedule timely follow-up. 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
== END 2024-12-06 20:58 | disposition home or self-care (01) ==
PROVIDERS: Emergency Provider Physician Assistant; PCP Nurse Practitioner Family
DX: S70.02XA Contusion of left hip, initial encounter (principal); S20.20XA Contusion of thorax, unspecified, initial encounter; Z79.82 Long term (current) use of aspirin; Z79.84 Long term (current) use of oral hypoglycemic drugs; Z79.02 Long term (current) use of antithrombotics/antiplatelets; I25.10 Atherosclerotic heart disease of native coronary artery without angina pectoris; E11.9 Type 2 diabetes mellitus without complications; I10 Essential (primary) hypertension; W01.0XXA Fall on same level from slipping, tripping and stumbling without subsequent striking against object, initial encounter
CPT/HCPCS: 71100; 73502; 99283

== ENCOUNTER → 2025-01-01 10:31 | Outpatient (BNVA) | payer OTHER, MEDICAID, SELFPAY | PROVIDERS: PCP Nurse Practitioner Family; Visit Provider Nurse Practitioner Family | DX: E11.65 Type 2 diabetes mellitus with hyperglycemia (principal); Z79.899 Other long term (current) drug therapy | CPT/HCPCS: 80053; 80061; 82306; 82607; 83036; 84439; 84443; 84550; 85025 ==

== ENCOUNTER → 2025-01-09 10:28 | Outpatient (BNVA) | payer OTHER, MEDICAID, SELFPAY | PROVIDERS: PCP Nurse Practitioner Family; Visit Provider Nurse Practitioner Family | DX: R39.9 Unspecified symptoms and signs involving the genitourinary system (principal) | CPT/HCPCS: 81003; 87077; 87086; 87184 ==

== ENCOUNTER → 2025-01-22 16:43 | Outpatient (BNVA) | payer OTHER, MEDICAID, SELFPAY | PROVIDERS: PCP Nurse Practitioner Family; Visit Provider Nurse Practitioner Family | DX: R30.0 Dysuria (principal) | CPT/HCPCS: 81003; 87077; 87086; 87184 ==

== ENCOUNTER → 2025-02-20 11:42 | Outpatient (BNVA) | payer OTHER, MEDICAID, SELFPAY | PROVIDERS: PCP Nurse Practitioner Family; Visit Provider Nurse Practitioner Family | DX: N39.0 Urinary tract infection, site not specified (principal); Z79.899 Other long term (current) drug therapy | CPT/HCPCS: 81003; 87086 ==

== ENCOUNTER 2025-04-09 09:36 | Outpatient (CLI) | payer MEDICARE, MEDICAID, SELFPAY ==
--- NOTE | 2025-04-09 09:44 | MM_ITS ---
WS: [id number] BILATERAL SCREENING DIGITAL TOMOSYNTHESIS MAMMOGRAM WITH CAD HISTORY: ANNUAL SCREEN COMPARISON: 04/08/2024, 02/15/2023, 02/11/2022 Bilateral CC and MLO views with tomosynthesis and synthetic mammography submitted. Computer aided detection analyzed. Breast composition: There are scattered areas of fibroglandular density. No suspicious masses, microcalcifications or architectural distortion. Benign calcifications. MM/MM scr BI tomosynthesis [id number] IMPRESSION: BI-RADS: 2 - Benign. FOLLOW UP: 1 Year Follow-up
== END 2025-04-09 09:37 | disposition home or self-care (01) ==
LOC: RAD 09:40
PROVIDERS: PCP Nurse Practitioner Family; Visit Provider Nurse Practitioner Family
DX: Z12.31 Encounter for screening mammogram for malignant neoplasm of breast (principal); R92.323 Mammographic fibroglandular density, bilateral breasts; R92.1 Mammographic calcification found on diagnostic imaging of breast
CPT/HCPCS: 77063; 77067